=== PATIENT | male | born 1965 | race African-American/Black ===

== ENCOUNTER 2020-11-30 07:29 | Outpatient (CLI) | payer BC, SELFPAY ==
--- NOTE | 2020-11-30 | ECHO_ITS ---
Patient Info Name: Billy Butler Age: 55 years : 1965 Gender: Male Ht: 72 in Wt: 309 lbs BSA: 2.73 m2 HR: 88 bpm BP: 149 / 97 mmHg Heart Rhythm: Sinus Rhythm Exam Date: 11/30/2020 8:11 AM Exam Location[facility] Patient Status: Outpatient Admit Date: 11/30/2020 Staff Ordering Physician: ValentínGuillermo MD Unemployment Inspector: Iram Tomlin RDCS Attending Provider: Jose GuadaulpeGuillermo MD Exam Type: CA echo doppler color flow Study Info Indications R06.02 - Shortness of breath Complete two-dimensional, color flow and Doppler transthoracic echocardiogram is performed. Summary 1. Complete two-dimensional, color flow and Doppler transthoracic echocardiogram is performed. 2. Technically difficult study with limited views. Regional wall motion assessment limited due to poor endomyocardial border definition. 3. Left ventricular chamber dimension is mildly enlarged. 4. Left ventricular systolic function is normal, estimated at 55%. 5. The left ventricular diastolic function is grade I diastolic dysfunction. 6. There is trace aortic valve regurgitation. 7. There is trace mitral valve regurgitation. 8. There is trace tricuspid valve regurgitation. 9. No pulmonary hypertension, estimated pulmonary arterial systolic pressure is 24 mmHg. Left Ventricle Left ventricular chamber dimension is mildly enlarged. Left ventricular systolic function is normal, estimated at 55%. There is no increased left ventricular wall thickness. The left ventricular diastolic function is grade I diastolic dysfunction. Technically difficult study with limited views. Regional wall motion assessment limited due to poor endomyocardial border definition. Right Ventricle Right ventricular chamber dimension is normal. Right ventricular systolic function is normal. Left Atria Left atrial chamber dimension is normal. Right Atria Right atrial chamber dimension is normal. Aortic Valve The aortic valve is not well visualized. There is no aortic valve stenosis. There is trace aortic valve regurgitation. Pulmonic Valve The pulmonic valve is not well visualized. There is trace pulmonic regurgitation. Mitral Valve The mitral valve has normal leaflets. There is trace mitral valve regurgitation. The mitral valve annulus is mildly calcified. Tricuspid Valve The tricuspid valve leaflets are normal. There is trace tricuspid valve regurgitation. No pulmonary hypertension, estimated pulmonary arterial systolic pressure is 24 mmHg. Pericardium/Pleural The pericardium appears not well visualized. There is no pericardial effusion. Aorta The aortic root size at the sinus of Valsalva is mildly dilated. There is mild aortic atherosclerosis. Left Ventricular Outflow Tract Name Value Normal LVOT 2D LVOT Diameter 2.3 cm LVOT Doppler LVOT Peak Gradient 4 mmHg LVOT Mean Gradient 1 mmHg LVOT VTI 17 cm LVOT VTI/AV VTI Ratio 0.7 LVOT Stroke Volume 69 ml LVOT CO
--- NOTE | 2020-11-30 17:41 | WPDPFTINT ---
PFT Interpretation This is a pulmonary function test with spirometry, plethysmography and diffusing capacity. The test was performed and results interpreted in accordance with the 2019 and 2005 ATS/ERS Task Force guidelines respectively using the Global Lung Function Initiative-2012 reference equations. Patient demonstrated good effort and cooperation. Reproducibility criteria were met. The quality of the pre bronchodilator spirometry maneuver was Grade A. Findings: Spirometry: Contour the inspiratory and expiratory flow tracing are normal. The FVC is 3.65 L, 71% predicted. The FEV1 is 2.80 L, 70% predicted. The FEV1: FVC ratio 77%. Plethysmography: The total lung capacity is 5.78 L, 78% predicted. The functional residual capacity is 2.15 L, 56% predicted. The residual volume is 2.10 L, 93% predicted. Diffusing capacity: The absolute diffusion capacity is 18.4, 60% predicted. The diffusing capacity corrected for alveolar volume is 3.83, 89% predicted. Impression: There is a mild restrictive ventilatory abnormality. The spirometry is normal without evidence of an obstructive abnormality. The absolute diffusing capacity is moderately decreased and normalizes when corrected for alveolar volume. There are no prior studies for comparison PFT Procedure Performed PFT Procedure Performed Plethysmography (Lung Vol) Diffusing Cap (DLCO) Spirometry w/o Bronchodil
== END 2020-11-30 07:30 | disposition home or self-care (01) ==
PROVIDERS: PCP Internal Medicine; Visit Provider Internal Medicine
DX: R06.02 Shortness of breath (principal); R94.2 Abnormal results of pulmonary function studies
CPT/HCPCS: 93306; 94375; 94726; 94729

== ENCOUNTER → 2023-03-06 10:13 | Outpatient (CLI) | payer BC, SELFPAY ==
--- NOTE | ~2023-03-06 | CT_ITS ---
EXAMINATION: CT lung screening DATE: 03/06/2023 10:26 INDICATION: personal hx of nicotine dependence TECHNIQUE: Computed tomography (CT) of the chest was performed without intravenous contrast. Addition al 3D reconstructions utilizing coronal maximum intensity projection (MIP) were performed. Automated exposure control and iterative reconstruction technique were employed. The dose-length product was 38 4.19 mGy-cm. COMPARISON: None FINDINGS: Mild bronchiectasis and some peripheral reticular atelectasis/scarring in the posterior medial right lower lobe. No pneumonia, suspicious pulmonary nodules, pulmonary edema or pleural effusion. Heart si ze is normal. Atherosclerotic coronary artery calcification. Thoracic aorta is normal in caliber. No pathologically enlarged thoracic lymphadenopathy. 1.8 cm low-attenuation cyst versus hemangioma at th e dome of the liver. Mild thoracic spondylosis. IMPRESSION: 1. . Lung-RADS category 1: Negative. Continue annual screening with noncontrast low-dose chest CT in 12 months. Reviewed, dictated and finalized at location A.
== END ==
PROVIDERS: PCP Internal Medicine; Visit Provider Internal Medicine
DX: Z12.2 Encounter for screening for malignant neoplasm of respiratory organs (principal); Z87.891 Personal history of nicotine dependence
CPT/HCPCS: 71271

== ENCOUNTER 2023-12-12 10:47 | Outpatient (CLI) | payer BC, SELFPAY ==
--- NOTE | ~2023-12-12 | MR_ITS ---
MRI of the brain Clinical History: Headache Technique: Axial and sagittal T1-weighted images were acquired. These were followed by axial T2-weigh irvin, diffusion weighted, gradient, and FLAIR images. Following intravenous administration of 20 cc Mu ltiHance gadolinium, T1-weighted fat-sat imaging was performed in the axial and coronal planes. Findings: No acute infarct, intracranial hemorrhage or mass lesion. There is encephalomalacia in the right frontal lobe with surrounding gliosis. No other significant signal abnormality seen in the dwayne jeff of the brain. Ventricles and subarachnoid spaces otherwise are unremarkable. Orbits are unremarkable. There is fron alberto sinus disease bilaterally. Remaining paranasal sinuses and mastoid air cells are clear. Major int racranial flow voids are intact. Sagittal midline structures are intact. No abnormal postcontrast enhancement identified. IMPRESSION: No acute infarct, intracranial hemorrhage, or mass lesion. Right frontal lobe encephalomalacia with surrounding gliosis. Correlate for postoperative change or p rior infarct. Reviewed, dictated and finalized at location . IMPRESSION: No acute infarct, intracranial hemorrhage, or mass lesion. Right frontal lobe encephalomalacia with surrounding gliosis. Correlate for pos toperative change or prior infarct.
[2023-12-12 13:45] LABS: Basophils Absolute Auto 0.1 K/mm3 (0.0-0.1); Basophils Percent Auto 0.6 % (0.2-1.2); Eosinophils Absolute Auto 0.4 K/mm3 (0-0.3); Eosinophils Percent Auto 4.1 % (0-4.4); Hematocrit 45.4 % (42.0-52.0); Hemoglobin 13.7 g/dL (14.0-18.0); Immature Granulocyte Absolute 0.03 K/mm3 (0.00-0.031); Immature Granulocyte Percent A 0.3 % (0-0.5); Lymphocytes Percent Auto 43.3 % (18.3-44.2); Mean Corpuscular HGB Conc 30.2 g/dl (32-36); Mean Corpuscular Hemoglobin 27.6 pg (26-34); Mean Corpuscular Volume 91.5 fl (80-100); Mean Platelet Volume 9.4 fl (7.4-10.4); Monocytes Absolute Auto 0.8 K/mm3 (0.1-0.6); Monocytes Percent Auto 8.2 % (2.6-8.5); Neutrophils Absolute Auto 4.3 K/mm3 (1.3-6.7); Neutrophils Percent Auto 43.5 % (45.5-73.1); Platelet Count Result 329 k/mm3 (150-375); Red Blood Count 4.96 M/mm3 (4.6-6.20); Red Cell Distribution Width 12.6 % (11.5-14.5); White Blood Count 9.9 K/mm3 (4.5-10.0)
[2023-12-12 13:54] LABS: Alanine Aminotransferase 49 U/L (6-50); Albumin Level 4.8 g/dL (3.5-5.1); Alkaline Phosphatase 88 U/L (38-126); Anion Gap 11 mmol/L (4-12); Aspartate Amino Transferase 40 U/L (17-59); Bilirubin,Total 0.7 mg/dL (0.2-1.3); Blood Urea Nitrogen 14 mg/dL (9-20); Calcium 9.5 mg/dL (8.4-10.2); Carbon Dioxide 25 mmol/L (22-30); Chloride 107 mmol/L (98-107); Cholesterol 120 mg/dL (0-200); Estimated Glomerular Filt Rate > 60; Glucose 85 mg/dL (65-110); HDL Direct 27 mg/dL; Sodium 143 mmol/L (137-145); Triglycerides 115 mg/dL (<150)
[2023-12-12 14:04] LABS: LDL Cholesterol Direct 78 mg/dL
== END 2023-12-12 10:48 | disposition home or self-care (01) ==
PROVIDERS: PCP Internal Medicine; Visit Provider Internal Medicine
DX: R51.9 Headache, unspecified (principal); E78.5 Hyperlipidemia, unspecified; E11.9 Type 2 diabetes mellitus without complications; G93.89 Other specified disorders of brain
CPT/HCPCS: 36415; 70553; 80053; 80061; 83036; 85025; A9577

== ENCOUNTER 2024-05-05 15:14 | Outpatient (CLI) | payer BC, SELFPAY ==
[2024-05-05 15:41] LABS: Basophils Absolute Auto 0.1 K/mm3 (0.0-0.1); Basophils Percent Auto 0.6 % (0.2-1.2); Eosinophils Absolute Auto 0.5 K/mm3 (0-0.3); Eosinophils Percent Auto 5.6 % (0-4.4); Hematocrit 44.1 % (42.0-52.0); Hemoglobin 13.7 g/dL (14.0-18.0); Immature Granulocyte Absolute 0.02 K/mm3 (0.00-0.031); Immature Granulocyte Percent A 0.2 % (0-0.5); Lymphocytes Absolute Auto 3.12 K/mm3 (0.9-3.2); Lymphocytes Percent Auto 34.8 % (18.3-44.2); Mean Corpuscular HGB Conc 31.1 g/dl (32-36); Mean Corpuscular Volume 90.2 fl (80-100); Mean Platelet Volume 8.9 fl (7.4-10.4); Monocytes Percent Auto 10.6 % (2.6-8.5); Neutrophils Absolute Auto 4.3 K/mm3 (1.3-6.7); Neutrophils Percent Auto 48.2 % (45.5-73.1); Platelet Count Result 337 k/mm3 (150-375); Red Blood Count 4.89 M/mm3 (4.6-6.20); Red Cell Distribution Width 13.1 % (11.5-14.5)
[2024-05-05 16:01] LABS: Alanine Aminotransferase 45 U/L (6-50); Albumin Level 4.4 g/dL (3.5-5.1); Alkaline Phosphatase 94 U/L (38-126); Anion Gap 10 mmol/L (4-12); Aspartate Amino Transferase 36 U/L (17-59); Bilirubin,Total 0.7 mg/dL (0.2-1.3); Blood Urea Nitrogen 13 mg/dL (9-20); Calcium 9.2 mg/dL (8.4-10.2); Carbon Dioxide 24 mmol/L (22-30); Chloride 105 mmol/L (98-107); Cholesterol 110 mg/dL (0-200); Estimated Glomerular Filt Rate > 60; Glucose 80 mg/dL (65-110); HDL Direct 28 mg/dL; Potassium 4.2 mmol/L (3.4-5.0); Sodium 139 mmol/L (137-145); Triglycerides 86 mg/dL (<150)
[2024-05-05 16:10] LABS: Hemoglobin A1C 5.4 % (<5.7)
[2024-05-05 16:11] LABS: Creatinine Urine 161.4 mg/dL
[2024-05-05 16:12] LABS: LDL Cholesterol Direct 63 mg/dL
[2024-05-05 16:20] LABS: MALB Creatinine Ratio < 3.7 mg/g (0-30); Microalbumin Urine Random < 6.0 mg/L (0-16.7)
[2024-05-05 16:32] LABS: Prostate Specific Antigen 0.6 ng/mL (< OR = 4.0)
== END 2024-05-05 15:15 | disposition home or self-care (01) ==
LOC: ANHLAB 15:19
PROVIDERS: PCP Internal Medicine; Visit Provider Internal Medicine
DX: I10 Essential (primary) hypertension (principal); E11.9 Type 2 diabetes mellitus without complications; Z12.5 Encounter for screening for malignant neoplasm of prostate
CPT/HCPCS: 36415; 80053; 80061; 82043; 83036; 84153; 85025

== ENCOUNTER 2024-10-01 10:40 | Outpatient (CLI) | payer BC, SELFPAY ==
--- OUTSIDE RECORDS SUMMARY | 2024-10-01 10:58 | XMS_ITS | Clinical Summary ---
Author Organization [facility] Address [address] [place] [address] Care Team Providers Care Taxicab Starter Name Role Phone Unavailable Primary Care Provider Unavailabl e Social History Tobacco Use Types Packs/Day Years Used Date Smoking Tobacco: Never Assessed Sex and Gender Information Value Date Recorded Sex Assigned at Not on file Legal Sex Male 12:14 PM CDT Gender Identity Not on file Sexual Orientation Not on file Plan of Treatment Health Maintenance Due Date Last Done Comments Hepatitis C Virus (HCV) Screening 1965 TdaP Immunization 1965 Hepatitis B Immunization (1 of 3 - 19+ 3-dose series) 1984 Colonoscopy 2010 Colorectal Cancer Screening 2010 Cologuard 2015 Immunochemical Fecal Occult Blood 2015 Pneumococcal Immunization (5 0+ years) (1 of 1 - PCV) 2015 Zoster Immunization (1 of 2) 2015 PSA Discussion 2020 Influenza Immunization (#1) 2024 SARS-COV-2 Immunization ( - season) 2024 Respiratory Syncytial Virus (RSV) Immunization (Adult) (1 - 1-dose 75+ series) 2040 Meningococcal Immunization (ACWY) Aged Out No longer eligible based on patient's age to complete this topic Pneumococcal Immunization Combined Aged Out No longer eligible based on patient's age to complete this topic Rotavirus Immunization Aged Out No lo nger eligible based on patient's age to complete this topic
--- OUTSIDE RECORDS SUMMARY | 2024-10-01 10:59 | XMS_ITS | Referral Summary ---
Author Organization [facility] [address] Address [address] [place] [address] Care Team Providers Care Jewelry Drill Operator Name Role Phone Guillermo Laura MD Primary Care Provider [phone] Allergies Active Allergy Reactions Criticality Noted Date Comments Atenolol-Chlorthalidone Cough Low 03/08/2016 Medications TOUJEO 300 unit/mL (1.5 mL) pen for injection 1 Active metFORMIN (GLUCOPHAGE) 1,000 mg tablet 2 (two) times a day 1 Active Januvia 100 mg tablet 1 Active UltiCare Pen Needle 31 gauge x /16 needle 1 Active OneTouch Delica Plus Lancet 33 gauge misc 1 Active OneTouch Ultra Blue Test Strip strip 1 Active insulin lispro (HumaLOG, ADMELOG) 100 unit/mL pen for injection Humalog KwikPen (U-100) Insulin 100 unit/mL subcutaneous Active atorvastatin (LIPITOR) 20 mg tabletIndicatio ns:Hyperlipidem ia associated with type 2 diabetes mellitus (HCC) TAKE 1 TABLET DAILY 90 tablet 3 4 Active aspirin 81 mg enteric coated tablet Take 1 tablet (81 mg total) by mouth daily 6 Active cholecalciferol 25 mcg (1,000 unit) tablet Take 1 tablet (1,000 Units total) by mouth daily 6 Active RIBOFLAVIN, VITAMIN B2, ORAL Take 400 mg by mouth daily 4 Active nortriptyline (PAMELOR) 10 mg capsule Take 1 capsule (10 mg total) by mouth 3 (three) times a day Active Ozempic 1 mg/dose (4 mg/3 mL) pen injector injection Inject 1 mg under the skin once a week 4 Active Nurtec ODT tablet,disinteg rating Place under the tongue daily as needed Active topiramate (TOPAMAX) 25 mg tablet Take 1 tablet (25 mg total) by mouth as directed 4 Active propranoloL (INDERAL) 20 mg tablet Take 1 tablet (20 mg total) by mouth 2 (two) times a day 4 Active Active Problems Problem Noted Date Diagnosed Date History of stroke 06/19/2024 Morbid obesity 07/05/2021 History of COVID-19 12/02/2020 Obstructive sleep apnea syndrome 12/02/2020 Morbid obesity with BMI of 40.0-44.9, adult 04/2021 Hyperlipidemia associated with type 2 diabetes m ellitus 12/02/2020 Palpitations 12/02/2020 Lightheadedness 12/02/2020 Lipid screening 12/02/2020 Short of breath on exertion 12/02/2020 Social History Tobacco Use Types Packs/Day Years Used Date Smoking Tobacco: Former Cigarettes 0.5 23.9 0 04/03/1991 - 03/03/2015 Smokeless Tobacco: Never Tobacco Cessation:Counseling Given: Not Answered Sex and Gender Information Value Date Recorded Sex Assigned at Not on file 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 Gender Identity Not on file Sexual Orientation Not on file Last Filed Vital Signs Vital Sign Reading Time Taken Comments Blood Pressure 110/76 06/19/2024 10:44 AM CDT Pulse 97 06/19/2024 10:44 AM CDT Temperature 36.3 C (97.3 F) 12/02/2020 1:25 PM CDT Respiratory Rate 18 12/02/2020 1:25 PM CDT Oxygen Saturation 99% 06/19/2024 10:44 AM CDT Inhaled Oxygen Concentration - - Weight 142 kg (313 lb) 06/19/2024 10:44 AM CDT Height 182.9 cm (6') 06/19/2024 10:44 AM CDT Body Mass Index 42.45 06/19/2024 10:44 AM CDT Plan of Treatment Not on file Procedures Procedure Name Priority Date/Time Associated Diagnosis Comments LIPID PANEL Routine 05/05/2024 3:30 PM CDT from Last 3 Months or Most Recently Relevant to Health Maintenance Results * (ABNORMAL) Lipid panel (05/05/2024 3:30 PM CDT) SCRIBED Cholesterol, Total 110 0 - 200 EXTERNAL LAB SCRIBED HDL 28(A) 40 - 100 EXTERNAL LAB SCRIBED LDL 63 0 - 100 EXTERNAL LAB SCRIBED Triglycerides 86 0 - 150 EXTERNAL LAB Blood 05/05/2024 3:30 PM CDT us Historical Provider LAB BLOOD ORDERABLES Kavitha vega Result EXTERNAL LAB from Last 3 Months or Most Recently Relevant to Health Maintenance Insurance [employer]now [employer] OOS [employer] CHOICE OOS [facility] CHOICE OOS Care Teams Jewelry Drill Operator Relationship Specialty Start Date End Date Guillermo Laura MD PCP - General Internal Medicine 11/03/20
--- OUTSIDE RECORDS SUMMARY | 2024-10-01 10:59 | XMS_ITS | Continuity of Care Document ---
Author Organization [facility] Address [address] [place] [address] Phone Care Team Providers Care Overhead Crane Inspector Name Role Phone No Information Unavailable Unavailable Allergies, Adverse Reactions, Alerts Substance Reaction Status Criticality No Known Allergies Active No Inform ation Procedures Procedure Date Prevent E&m Estab Pt; 40-64 Yr 13 Prevent E&m Estab Pt; 40-64 Yr 12 Lipid Panel General Health Panel Venipuncture Offic/outpt E&m Estab Low-mod 1 Offic/outpt E&m Estab Mod-hi 2 10 Offic/outpt E&m Estab Low-mod 9 Lipid Panel General Health Panel Venipuncture Offic/outpt E&m Estab Low-mod 9 Prevent E&m Estab Pt; 40-64 Yr 09 Offic/outpt E&m New Low-mod 07 Advance Directives Directive Yes / No Effective Date File Name No Information Encounters Encounter Description Practice Location Reason(s) For Visit Diagnoses Date Provider Providers Copied on Encounter [facility], [address], [place], [place], [id number], [place] tel:[phone] No Information 0 No Information Prevent E&m Estab Pt; 40-64 Yr [facility], [address], [place], [place], [id number], [place] tel:[phone] [place] [facility] EXAM, GENERAL, ROUTINE 3 K[facility] Simpson. [address], [place], [place], [id number], [place]. tel:[phone] Referring Provider: Calvin Villaseñor, [address], [place], [address] . tel:[phone] Prevent E&m Estab Pt; 40-64 Yr [facility], [address], [place], [place], [id number], [place] tel:[phone] [place] [facility] EXAM, GENERAL, ROUTINE 2 [facility]asi Simpson. [address] [place], [id number], [place]. tel:[phone] Referring Provider: Calvin Villaseñor, [address], [place], [address] . tel:[phone] Offic/outpt E&m Estab Low-mod [facility], [address], [place], [place], [id number], [place] tel:[phone] [place] [facility] PAIN, KNEEBURSITIS, HIP 1 Kasi Simpson. [address], [place], [place], [id number], [place]. tel:[phone] Referring Provider: [place], [address] . tel:[phone] Offic/outpt E&m Estab Mod-hi 2 [facility], [address], [place], [place], [id number], [place] tel:[phone] [place] [facility] HEADACHESPRAIN, KNEE, MEDIAL COLLATERAL Oct- 0 Kasi Simpson. [address], [place], [place], [id number], [place]. tel:[phone] Referring Provider: Calvin Villaseñor, [address], [place], [address] . tel:[phone] Offic/outpt E&m [facility], [address], [place], [place], [id number], [place] tel:[phone] [place] [facility] PAIN, THORACICPAIN, WRISTPAIN, HANDCAULIFLOWER EAR Dec-1 0-200 9 Kasi Simpson. [address], [place], [place], [id number], [place]. tel:[phone] Referring Provider: Calvin Villaseñor, [address], [place], [address] . tel:[phone] [facility], [address], [place], [place], [id number], [place] tel:[phone] [place] [facility] EXAM, GENERAL, ROUTINE Nov-1 0-200 9 Kasi Simpson. [address], [place], [place], [id number], [place]. tel:[phone] Referring Provider: Calvin Villaseñor, [address], [place], [address] . tel:[phone] Offic/outpt E&m [facility], [address], [place], [place], [id number], [place] tel:[phone] [place] [facility] HEADACHE May- 9-200 9 Kasi Simpson. [address], [place], [place], [id number], [place]. tel:[phone] Referring Provider: Calvin Villaseñor, [address], [place], [address] . tel:[phone] Prevent E&m Estab Pt; 40-64 Yr [facility], [address], [place], [place], [id number], [place] tel:[phone] [place] [facility] EXAM, GENERAL, ROUTINE Mar-0 2-200 9 Kasi Simpson. [address], [place], [place], [id number], [place]. tel:[phone] Referring Provider: Calvin Villaseñor [address], [place], [address] . tel:[phone] Offic/outpt E&m [facility] [address], [address], [place], [place], [id number], [place] tel:[phone] [place] [facility] SINUSITIS, PANSINUSITIS, ACUTEOTITIS MEDIA 200 7 Kasi Simpson. [address], [place], [id number], [place]. tel:[phone] Referring Provider: Calvin Villaseñor, [address] [place], [address] . tel:[phone] Family History Family Member Type Diagnosis Age At Onset Father Problem (finding) Hypertension Payers Payer name Insurance type Covered constitution party ID Authoriza tion(s) No Information Social History Type Description Quantity Date Captured Comments Alcohol Use Details Unknown Caffeine Use Details 2 cups per day Tobacco Use Status No Information Smoking Status No Information Non-Smoking Tobacco Use Details cigarettes: No Details Available cigarettes: 1.00 per day Sex Male Chief Complaint And Reason For Visit No Information Reason For Referral Reason For Referral No Information History Of Present Illness Encounter Date Complaint History Of Prese nt Illness No Information Functional Status Date Functional Assessmen t No Information Instructions Date Instruction Additional Joelr ifeoma Converted from Health Monitor Assessments Type Assessment Date No Information Patient Care Teams Name Effective Dates (start - stop) Status Members No Information
--- OUTSIDE RECORDS SUMMARY | 2024-10-01 10:59 | XMS_ITS | CONTINUITY OF CARE DOCUMENT ---
Author Name raymundo fonseca Address Unknown Organization [facility] Address [address] [address] [place] [address] Phone [phone] Care Team Providers Care Drafter Apprentice Name Role Phone Scott Carter MD Unavailable [phone] ISH ASIF Unavailable [phone] ISH ASIF Unavailable [phone] PROBLEMS Condition Status Date Provider Notes Tobacco use, quit active Scott Carter MD Chest pain, atypical active Scott Holland Obesity active Scott Carter MD FAMILY HISTORY OF HEART DISEASE active Regla Carter MD Sleep apnea active Scott Carter MD HTN essential completed - Scott Carter MD Hyperlipidemia active Scott Carter MD Vitamin D deficiency active Scott Holland Health maintenance examination active Grazyna Carter MD ENCOUNTERS Date Type Provider Location Encounter Diag nosis - In-person encounter Office Visit Scott Carter MD [place] [facility] Chest pain, atypicalSleep apneaHTN essentialHealth maintenance examination - In-person encounter Office Visit Scott Carter MD [place] [facility] Tobacco use, quitChest pain, atypicalObesityFAMILY HISTORY OF HEART DISEASESleep apneaHyperlipidemiaVitamin D deficiency VITAL SIGNS Date Observation Value Provider blood pressure, diastolic 83 mm[Hg] Me ange Gandara blood pressure, systolic 132 mm[Hg] Melissa Ganadra pulse rate 88 /min Anupama Gandara oxygen saturation, oximetry 98 % Anupama Gandara respiratory rate E&M 15 /min Anupama Norman Body Mass Index (Ratio) 40.68 kg/m2 Ibis lance weight E&M 300 [lb_av] Anupama Gandara blood pressure, diastolic 90 mm[Hg] Me cassidy Gandara blood pressure, systolic 119 mm[Hg] Melissa ramirez Gandara blood pressure, diastolic 112 mm[Hg] Tate Mooney blood pressure, systolic 168 mm[Hg] Brittany Mooney pulse rate 104 /min Benedicto gilliam oxygen saturation, oximetry 98 % Benedicto Mooney respiratory rate E&M 18 /min Adrien Mooney Body Mass Index (Ratio) 40.82 kg/m2 Laura Mooney weight E&M 301 [lb_av] Benedicto Healy yamilmichell height E&M 72 [in_i] Benedicto Healy yamilmichell ALLERGIES Allergy Name Onset Date Reaction Criticality Status TENORETIC 50 COUGH COUGH Low Criticality active RESULTS Date Observation Value Provider Reference Range Interpretation Location folate, serum 20.0 NG/MLM [facility] 4.4 - 31.0 vitamin b12, serum 2000.0 pg/mL [facility] 211.0 - 946.0 High thyroid stimulating hormone, serum 1.840 ??IU/ML [facility] 0.270 - 4.200 pro brain natriuretic peptide 14.2 pg/mL [facility] 0.0 - 125.0 very low density lipoproteins 18.0 mg/dL [facility] 5.0 - 40.0 LDL/HDL (low-density lipoprotein/high-den sity lipoprotein) ratio 3.5 RATIO [facility] - lipoprotein, beta, serum, point, quantitative, calculated 117.0 (?) [facility] 0.0 - 100.0 High HDL cholesterol, serum 33.0 mg/dL [facility] 35.0 - 55.0 Low cholesterol, serum 168.0 mg/dL [facility] 0.0 - 200.0 triglyceride, serum, fasting 90.0 mg/dL [facility] 0.0 - 150.0 anion gap, serum 11.9 [facility] - albumin/globulin ratio, serum 2.4 g/dL [facility] 1.1 - 2.5 globulin, serum 3.2 [facility] 2.3 - 3.8 urea nitrogen/creatinine ratio, serum 15.7 [facility] - Estimated Glomerular Filtration Rate (calc) 126.9 (?) [facility] 59.0 - chloride, serum 102.1 mmol/L [facility] 98.0 - 107.0 potassium, serum 4.4 mmol/L [facility] 3.5 - 5.1 sodium, serum 140.0 mmol/L [facility] 136.0 - 145.0 creatinine, serum 0.7 mg/dL [facility] 0.7 - 1.2 carbon dioxide, venous blood 26.0 mmol/L [facility] 22.0 - 29.0 albumin, serum 4.2 g/dL [facility] 3.5 - 5.2 calcium, serum 9.7 mg/dL [facility] 8.6 - 10.2 aspartate aminotransferase (SGOT), serum 36.0 1/L [facility] 0.0 - 40.0 alkaline phosphatase, serum 78.0 1/L [facility] 40.0 - 130.0 alanine aminotransferase (SGPT), serum 54.0 1/L [facility] 0.0 - 41.0 High protein, total, serum 7.4 g/dL [facility] 6.6 - 8.7 bilirubin, serum, total 0.6 mg/dL [facility] 0.0 - 1.2 urea nitrogen, blood 11.0 mg/dL [facility] 6.0 - 20.0 blood glucose, random 71.0 mg/dL [facility] 74.0 - 99.0 Low red blood cell distribution width, size density 40.9 fL [facility] - immature granulocytes, percentage of total cells, blood 0.2 % [facility] - nucleated red blood cells as percent of blood leukocytes 0.0 % [facility] - red blood cell (erythrocyte) count, per high power field 0.0 10*3/UL [facility] - eosinophils as percent of blood leukocytes 4.7 % [facility] - neutrophils as percent of blood leukocytes 50.9 % [facility] - Absolute Neutrophils 4.7 CELLS/UL [facility] 1.5 - 7.8 basophils as percent of blood leukocytes 0.4 % [facility] - Absolute Basophils 0.0 CELLS/UL [facility] 0.0 - 0.2 monocytes as percent of blood leukocytes 9.8 % [facility] - Absolute Monocytes 0.9 CELLS/UL [facility] 0.2 - 1.0 lymphocytes as percent of blood leukocytes 34.0 % [facility] - Absolute Lymphocytes 3.2 CELLS/UL [facility] 0.9 - 3.9 mean platelet volume 10.2 (?) [facility] - platelet count 343.0 THOUSAND/UL [facility] 100.0 - 400.0 mean corpuscular hemoglobin concentration, RBC 31.1 G/DL [facility] 31.0 - 38.0 mean corpuscular hemoglobin, RBC 27.8 pg [facility] 25.0 - 35.0 mean corpuscular volume, RBC 89.5 fL [facility] 75.0 - 100.0 hematocrit, blood 42.8 % [facility] 35.0 - 55.0 hemoglobin, blood 13.3 g/dL [facility] 11.5 - 16.5 erythrocyte count, whole blood 4.8 MILLION/UL [facility] 3.5 - 5.5 activated partial thromboplastin time 26.5 SECONDS [facility] 23.0 - 33.0 prothrombin time (patient) 10.0 s [facility] 9.0 - 11.5 international normalized ratio (INR) 0.9 [facility] 0.9 - 1.1 hemoglobin A1C, blood, as % of total hemoglobin 5.4 % [facility] 4.0 - 6.0 HISTORY OF MEDICATION USE Medication Status Instructions Dates Provider Indications Com ments QSYMIA 7.5-46 MG ORAL CAPSULE EXTENDED RELEASE 24 HOUR active one tablet daily Scott Carter MD QSYMIA 3.75-23 MG ORAL CAPSULE EXTENDED RELEASE 24 HOUR active one tablet daily Scott Carter MD TENORETIC 100 100-25 MG ORAL TABLET completed ONE TAB. DAILY - Anupama Gandara LOVASTATIN 40 MG ORAL TABLET active ONE TAB. DAILY Scott Carter MD EQL VITAMIN D3 TABLET active DAILY Scott Carter MD ASPIRIN 81 MG ORAL TABLET active ONE TAB. DAILY Scott Carter MD SOCIAL HISTORY Date Observation Value Provider social history reviewed E&M revi ewed - no changes required Scott Carter MD smoking status Former smoker Anupama carver smoking status Former smoker Anupama carver smoking status Former smoker Scott hernandez MD quit smoking, stage quit Scott rivera MD social history E&M S moking History: Boby waller is a former smoker. Scott Carter MD social history reviewed E&M revi ewed - no changes required Scott Carter MD FUNCTIONAL STATUS Date Observation Value Provider periodic limb movement index absent (0) Anupama Gandara FAMILY HISTORY Family Member Condition Father Family History of Co ronary Artery Disease: INSURANCE PROVIDERS Payer name Policy type / Coverage type [employer] party ID [facility] [id number] [employer] (2) Medicaid [id number] TREATMENT PLAN Date Name Performer Cardiology:OK ON RX Scott hernandez MD Cardiology:WILL DO DIET PILL Keon Carter MD Cardiology:NEG CXR A ND TROP B KYLE WITHOUT ENERGUY DRINK T he following medications were removed from the medication list: Tenoretic 100 100-25 Mg Tabs (Atenolol-chlorthalidone) ..... One tab. daily His updated medication list for this problem includes: Aspirin 81 Mg Tabs (Aspirin) ..... One tab. daily 1 . Technically difficult study. Normal left ventricular systolic function. Normal left ventricular size. N ormal left ventricular wall thickness. There is E to A wave reversal consistent with impaired LV r elaxation. Normal E/E` 8.0. Left ventricular ejection fraction is estimated at 60 %. 2 . Normal right ventricular size. Normal right ventricular systolic function. 3 . No significant valvular abnormalities. 4 . There is mild enlargement of the left atrium. E xercise Tolerance Test Assessment: Quality of ETT: diagnostic ETT Interpretation: normal-no evidence of ischemia by ST analysis Scott Carter MD Cardiology:SEVERE TO GET TITRATI ON Scott Carter MD Cardiology:NML A1C VIT D AND B12 Scott Carter MD Cardiology: H is updated medication list for this problem includes: Lovastatin 40 Mg Tabs (Lovastatin) ..... One tab. daily C HOL: 168.0 (02/08/2016) LDL: 117.0 (?) (02/08/2016) HDL: 33.0 (02/08/2016) T.0 (02/08/2016) Scott Carter MD Cardiology:NEG CXR A ND TROP T he following medications were removed from the medication list: Tenoretic 100 100-25 Mg Tabs (Atenolol-chlorthalidone) ..... One tab. daily His updated medication list for this problem includes: Aspirin 81 Mg Tabs (Aspirin) ..... One tab. daily 1 . Technically difficult study. Normal left ventricular systolic function. Normal left ventricular size. N ormal left ventricular wall thickness. There is E to A wave reversal consistent with impaired LV r elaxation. Normal E/E` 8.0. Left ventricular ejection fraction is estimated at 60 %. 2. Normal right ventricular size. Normal right ventricular systolic function. 3 . No significant valvular abnormalities. 4 . There is mild enlargement of the left atrium. E xercise Tolerance Test Assessment: Quality of ETT: diagnostic ETT Interpretation: normal-no evidence of ischemia by ST analysis Scott Carter MD Cardiology:may need dit pill Keon Carter MD Cardiology:nimo rx H is updated medication list for this problem includes: Lovastatin 40 Mg Tabs (Lovastatin) ..... One tab. daily Scott Carter MD Cardiology:will rx B P today: 168/112 His updated medication list for this problem includes: Tenoretic 100 100-25 Mg Tabs (Atenolol-chlorthalidone) ..... One tab. daily Aspirin 81 Mg Tabs (Aspirin) ..... One tab. daily Scott Carter MD Cardiology Scott Carter MD Cardiology Scott Carter MD Cardiology:will scotty Carter MD Cardiology:MANY ZUNILDA Carter MD Date Name HEMOGLOBIN A1c VITAMIN D, 25-HYDROX Y, LC/MS/MS VITAMIN B12/FOLATE, SERUM PANEL TSH, 3RD GENERATION W/REFLEX TO FT4 PARTIAL THROMBOPLAST IN TIME, ACTIVATED PROTHROMBIN TIME WIT H INR TROPONIN I LIPID PANEL CBC (INCLUDES DIFF/P LT) COMPREHENSIVE METABO LIC PANEL W/EGFR B TYPE NATRIURETIC P EPTIDE (BNP) PARTIAL THROMBOPLAST IN TIME, ACTIVATED PROTHROMBIN TIME WIT H INR TROPONIN I X-Ray, Chest, PA & L ateral PROBNP, N TERMINAL COMPREHENSIVE METABO LIC PANEL W/EGFR LIPID PANEL CBC (INCLUDES DIFF/P LT) THYROID PANEL WITH T SH, 3RD GENERATION VITAMIN B12 HEMOGLOBIN A1c VITAMIN D, 25-HYDROX Y, LC/MS/MS STR - Routine Complete Echo Sleep Study Home HISTORY OF PROCEDURES Procedure Date Procedure Name Provider Procedure Notes S tatus SNOMED-CT: 389016684666044 Current Medications Documented Scott Carter MD completed Stress EKG Cali garcia MD completed EKG Scott Carter MD complete d SNOMED-CT: 633026323569248 Current Medications Documented Scott Carter MD completed
--- OUTSIDE RECORDS SUMMARY | 2024-10-01 10:59 | XMS_ITS | Clinical Summary ---
Author Organization [facility] [address] Address [address] [place] [address] Care Team Providers Care Ginner Helper Name Role Phone Guillermo Laura MD Primary Care Provider [phone] Allergies Active Allergy Reactions Criticality Noted Date [...] 12/02/2020 Short of breath on exertion 12/02/2020 Surgical History Surgery Date Site/Laterality Comments FRACTURE SURGERY 10/13/2008 Medical History Medical History Date Comments Shortness of breath Diabetes mellitus (HCC) 06/19/2017 Migraines Family History Medical History Relation Name Comments Diabetes Brother Cancer Father Carlos Butler Heart attack Father Carlos Butler Prostate cancer Father Carlos Butler Cancer Mother Radha Butler Diabetes Mother Radha Butler Pancreatic cancer Mother Radha Butler Heart attack Sister Relation Name Status Comments Brother Father Carlos Butler Mother Radha Butler (Age 71) Sister Social History Tobacco Use Types Packs/Day Years Used Date Smoking Tobacco: Former Cigarettes 0.5 23.9 0 04/03/1991 - 03/03/2015 Smokeless Tobacco: Never Tobacco Cessation:Counseling Given: Not Answered Sex and Gender Information Value Date Recorded Sex Assigned at Not on file Legal Sex Male 1:31 PM EPIC TRAIN[employer] Gender Identity Not on file Sexual Orientation Not on file Obstetrics History Last Filed Vital Signs Vital Sign Reading [...] 06/19/2024 10:44 AM CDT Plan of Treatment Health Maintenance Due Date Last Done Comments Albumin Creatinine Ratio, Urine 1965 Colon Cancer Screening-Colonoscopy 1965 Depression Screening 1965 Hemoglobin A1C 1965 Hepatitis C Screening 1965 Prostate Cancer Screening-PSA 1965 eGFR 1965 Dilated Eye Exam 1965 Foot Exam 1965 Pneumococcal vaccine <65 (1 of 2 - PCV) 1971 DTaP/Tdap/Td Vaccine (1 - Tdap) 1976 Hepatitis B Screening 1983 Regular Well Visit/Exam 18-64 1983 Zoster Vaccine (1 of 2) 2015 Covid-19 Vaccine (4 - season) 2024 09/15/2021, 01/30/2021, 01/09/2021 Influenza Vaccine (#1) 2024 Lipid Panel 05/05/2025 05/05/2024, 12/02/2020 Procedures Procedure Name Priority Date/Time Associated Diagnosis [...] us Historical Provider LAB BLOOD ORDERABLES Kavitha l Result EXTERNAL LAB from Last 3 Months or Most Recently Relevant to Health Maintenance Insurance [employer] ACC CHOICE OOS [email or web address] CHOICE OOS BLUE ACC CHOICE OOS Care Teams Ginner Helper Relationship Specialty Start Date End Date Guillermo Laura MD PCP - General Internal Medicine 11/03/20
--- OUTSIDE RECORDS SUMMARY | 2024-10-01 10:59 | XMS_ITS | Data Portability ---
Author Organization [place] - [facility] [employer], Main Office Address [address] [place] [address] Care Team Providers Care Lute Packer Or Applier Name Role Phone ALEXIS LAURA Referring Provider Assessment Encounter Date Assessment Date Assessment LastModified by Organization Details LastModified Time 02/25/2023 02/25/2023 Screenings discussed immunizations discussed ordered where agreeable and inappropriate blood work reviewed follow-up 4 months Ozempic if approved [email or web address] Not available 03/09/2023 16:59:55 04/04/2023 04/04/2023 Continue current therapy and follow-up in 4 months [email or web address] Not available 06/23/2023 18:17:39 07/04/2023 07/04/2023 Continue current therapy follow-up in 4 months [email or web address] Not available 07/05/2023 14:15:31 Plan of Treatment Reminders Order Date Submit Date Provider Last Modified By Organization Details Last Modified Time Details Appointments None recorded . Lab CBC w/ auto diff 07/04/20 [facility] (Lab), [address] [place], [address], 18:44:52 CMP, serum or plasma 07/04/20 [facility] (Lab), [address] [place], [address], 19:03:50 lipid panel, serum 023 07/04/20 [facility] (Lab), [address] [place], [address], 3 19:03:54 HbA1c (hemoglo bin A1c), blood 023 07/04/20 23 [email or web address] [facility] ([facility]), [address] [place], [address], 4 18:48:31 Referral None recorded . Procedures None recorded . Surgeries None recorded . Imaging None recorded . Medication Orders None recorded . Patient TargetsNo targets recorded. Patient Instructions Encounter Date Encounter Id Patient Instructions Last Modified By Organization Details Last Modified Time 02/25/2023 [id number] advance care planning: care instructions [email or web address] Not available 03/09/2023 17:00:55 advance directives: care instructions [email or web address] Not available 03/09/2023 17:00:55 [place] Advance Directives Not available 03/09/2023 17:00:55 risk assessment* [email or web address] Not available 03/11/2023 09:57:29 INFLUENZA VACCIN E TD/TDAP Recommended today, patient declined Ordered P atient will get at local pharmacy/health department PNEUMONIA VACCINE Ordered Recommende d today, patient declined Patient will get at local pharmacy/health department Recomme nded at age 65 SHINGLES Ordered Recommende d today, patient declined Patient will get at local pharmacy/health department PSA Ordered No screening necessary patient is up to date COLORECTAL SCREENING No screening necessary patient is up to date DEPRESSION SCREENING Negative BMI Morbid Obesity continue your current weight loss efforts try to lose 5% of your body weight try to lose 10% of your body weight try to lose 15% of your body weight NUTRITION Heart Healthy Diet Recommendatio n of a 1500 caloric intake for weight loss is advised PHYSICAL ACTIVITY Need more exercise/physical activity minimum of 10-20 minutes of activity that causes mild breathlessness/day minimum of 20-30 minutes activity that causes mild breathlessness/day ALCOHOL USE No alcohol use TOBACCO USE former smoker If 50 or above, recommend lung cancer screening with low dose CT scan of the chest LUNG CANCER SCREENING Non Smoker-not indicated Recommen dation for Lung Cancer Screening with LDCT- ordered SEXUALLY ACTIVE Yes, Patient is in monogamous relationship HEPATITIS C SCREENING Not indicated GLUCOSE SCREENING Known Diabetic LIPID SCREENING Diagnosis of Hyperlipidemia [email or web address] Not available 02/25/2023 12:47:26 Reason for Referral None Reported. Results Created Date Observation Date Name Description Value Unit Range Abnormal Flag Note LastModifiedBy Organization Detail LastModifiedTime 08/03/20 22 08/03/2022 HEMOG LOBIN A1C HA1C 5.2 % 4.0-6. 0 Diabe soila Memo burns Crite cathleen: <5.7% Consi stent with absen ce of diabe soila 5.7-6 .4% Consi stent with incre ased risk for diabe soila (pred iabet es) >OR=6 .5% Consi stent with diabe soila REFER ENCE: Diabe soila Care 2016, 39(Bradley ppl.1 ):s13 -s22 Not Available [facility] (Lab) [address] [place], [address], 08/03/2022 21:26:57 08/03/20 22 08/03/2022 PSA SCREE N PSA medicare screen 0.76 NG/mL 0.00-4 .00 Not Available [facility] (Lab) [address] [place], [address], 08/03/2022 17:36:13 08/03/20 22 08/03/2022 COMPR EHENS МАРИНА METAB OLIC PANEL sodium 137 mmol/ L 137-14 5 Not Available [facility] (Lab) [address] [place], [address], 08/03/2022 17:03:28 08/03/20 22 08/03/2022 COMPR EHENS МАРИНА METAB OLIC PANEL potassium 4.6 mmol/ L 3.5-5. 1 Not Available [facility] (Lab) [address] [place], [address], 08/03/2022 17:03:28 08/03/20 22 08/03/2022 COMPR EHENS МАРИНА METAB OLIC PANEL chloride 101 mmol/ L 98-107 Not Available [facility] (Lab) [address] [place], [address], 08/03/2022 17:03:28 08/03/20 22 08/03/2022 COMPR EHENS МАРИНА METAB OLIC PANEL carbon dioxide 28 mmol/ L 22-30 Not Available [facility] (Lab) [address] [place], [address], 08/03/2022 17:03:28 08/03/20 22 08/03/2022 COMPR EHENS МАРИНА METAB OLIC PANEL anion gap 12.6 mmol/ L 14-22 low Not Available [facility] (Lab) [address] [place] [address], [address], 08/03/2022 17:03:28 08/03/20 22 08/03/2022 COMPR EHENS МАРИНА METAB OLIC PANEL glucose 82 mg/dL 70-99 Not Available [facility] (Lab) [address] [place] [address], [address], 08/03/2022 17:03:28 08/03/20 22 08/03/2022 COMPR EHENS МАРИНА METAB OLIC PANEL BUN 14 mg/dL 8-19 Not Available [facility] (Lab) [address] [place] [address], [address], 08/03/2022 17:03:28 08/03/20 22 08/03/2022 COMPR EHENS МАРИНА METAB OLIC PANEL creatinine 0.76 mg/dL 0.66-1 .25 Not Available [facility] (Lab) [address] [place] [address], [address], 08/03/2022 17:03:28 08/03/20 22 08/03/2022 COMPR EHENS МАРИНА METAB OLIC PANEL GFR >60 Refer ence Range : [place] ge GFR Healt hy Adult : >60 mL/mi n/1.7 3 m2 Chron ic Kidne y Disea se: 15-60 mL/mi n/1.7 3 m2 Kidne y Failu re: <15/m L/min /1.73 m2 www.n iddk. nih.g ov The MDRD study equat ion has not been valid ated in child perez <18 years of age; pregn ant women ; the elder ly >85 years of age; or in some racia l or ethni c subgr oups, such as Hispa nics. Outsi de the valid ated albino eters , estim ated GFR is less accur ate, requi ring clini christie judgm ent on a case- by-ca se basis . Clini christie inter preta tion for other races and ages must be made by the clini chester. The MDRD study equat ion has not been valid ated for the evalu ation of serum creat inine relat ed to nutri mak l statu s or medic ation usage . For perso ns <18 years of age, a pedia tric GFR calcu lator is avail able on the [facility] websi te: https ://stu duncan.o ofe/pr ofess ional s/kdo qi/gf r_cal culat or Not Available [facility] (Lab) [address] [place], [address], 08/03/2022 17:03:28 08/03/20 22 08/03/2022 COMPR EHENS МАРИНА METAB OLIC PANEL alkaline phosphatase 83 U/L 38-126 Not Available [facility] (Lab) [address] [place], [address], 08/03/2022 17:03:28 08/03/20 22 08/03/2022 COMPR EHENS МАРИНА METAB OLIC PANEL alanine aminotransfe rase 52 U/L 0-50 high Not Available [facility] (Lab) [address] [place], [address], 08/03/2022 17:03:28 08/03/20 22 08/03/2022 COMPR EHENS МАРИНА METAB OLIC PANEL aspartate aminotransfe rase 42 U/L 15-46 Not Available [facility] (Lab) [address] [place], [address], 08/03/2022 17:03:28 08/03/20 22 08/03/2022 COMPR EHENS МАРИНА METAB OLIC PANEL bilirubin, total 0.80 mg/dL 0.20-1 .30 Not Available [facility] (Lab) [address] [place], [address], 08/03/2022 17:03:28 08/03/20 22 08/03/2022 COMPR EHENS МАРИНА METAB OLIC PANEL calcium 9.6 mg/dL 8.4-10 .2 Not Available [facility] (Lab) [address] [place], [address], 08/03/2022 17:03:28 08/03/20 22 08/03/2022 COMPR EHENS МАРИНА METAB OLIC PANEL total protein 7.7 g/dL 6.3-8. 2 Not Available [facility] (Lab) [address] [place], [address], 08/03/2022 17:03:28 08/03/20 22 08/03/2022 COMPR EHENS МАРИНА METAB OLIC PANEL albumin 4.3 g/dL 3.4-5. 0 Not Available [facility] (Lab) [address] [facility] [place], [address], 08/03/2022 17:03:28 08/03/20 22 08/03/2022 COMPR EHENS МАРИНА METAB OLIC PANEL globulin 3.4 g/dL 2.6-4. 2 Not Available [facility] (Lab) [address] [place], [address], 08/03/2022 17:03:28 08/03/20 22 08/03/2022 COMPR EHENS МАРИНА METAB OLIC PANEL A/G ratio 1.3 ratio 1.0-2. 0 Not Available [facility] (Lab) [address] [place], [address], 08/03/2022 17:03:28 08/03/20 22 08/03/2022 LIPID PANEL cholesterol 139 mg/dL 140-19 9 low NIH CHLOE NSUS RECOM MENDA TION FOR GODWIN STERO L: ADULT CHILD LOW RISK: <200 <170 BORDE RLINE : <200- 239 ----- HIGH RISK: >240 >200 Not Available [facility] (Lab) [address] [place], [address], 08/03/2022 17:03:25 08/03/20 22 08/03/2022 LIPID PANEL triglyceride s 86 mg/dL 0-150 NIH CHLOE NSUS REPOR T RECOM MENDA TION FOR TRIGL YCERI ASHER: ADULT CHILD LOW RISK: <150 ----- BODER LINE: 150-1 99 ----- HIGH RISK: >200 ----- Not Available [facility] (Lab) [address] [place], [address], 08/03/2022 17:03:25 08/03/20 22 08/03/2022 LIPID PANEL HDL cholesterol 31 mg/dL 40- low Not Available [facility] (Lab) [address] [place] [address], [address], 08/03/2022 17:03:25 08/03/20 22 08/03/2022 LIPID PANEL LDL cholesterol, calculated 91 mg/dL 0-130 NIH CHLOE NSUS REPOR T RECOM MENDA TIONS FOR LDL: ADULT CHILD LOW RISK <130 <110 (OPTI MAL LDL) <100 ----- BORDE RLINE : 130-1 59 ----- HIGH RISK: >160 >130 A TRIGL YCERI DE RESUL T >400 INVAL IDATE S THE CALCU LATIO N FOR LDL FRACT IONAT ION - THE LDL RESUL T WILL NOT BE REPOR SEAN. Not Available [facility] (Lab) [address] [place], [address], 08/03/2022 17:03:25 08/03/20 22 08/03/2022 CBC/C OMPLE TE BLD COUNT W/DIF F hematocrit 44.0 % 39.3-5 0.0 Not Available [facility] (Lab) [address] [place], [address], 08/03/2022 16:26:16 08/03/20 22 08/03/2022 CBC/C OMPLE TE BLD COUNT W/DIF F white blood cells 10.2 x10'3 /uL 4.2-10 .8 Not Available [facility] (Lab) [address] [place], [address], 08/03/2022 16:26:16 08/03/20 22 08/03/2022 CBC/C OMPLE TE BLD COUNT W/DIF F red blood cells 4.96 x10'6 /uL 4.10-5 .80 Not Available [facility] (Lab) [address] [place], [address], 08/03/2022 16:26:16 08/03/20 22 08/03/2022 CBC/C OMPLE TE BLD COUNT W/DIF F hemoglobin 13.6 g/dL 13.2-1 7.0 Not Available [facility] (Lab) [address] [place], [address], 08/03/2022 16:26:16 08/03/20 22 08/03/2022 CBC/C OMPLE TE BLD COUNT W/DIF F mean red cell volume 88.7 fL 80.0-9 7.0 Not Available [facility] (Lab) [address] [place], [address], 08/03/2022 16:26:16 08/03/20 22 08/03/2022 CBC/C OMPLE TE BLD COUNT W/DIF F mean red cell hemoglobin 27.4 pg 27.0-3 3.0 Not Available [facility] (Lab) [address] [facility] [place], [address], 08/03/2022 16:26:16 08/03/20 22 08/03/2022 CBC/C OMPLE TE BLD COUNT W/DIF F mean RBC HGB concentratio n 30.9 g/dL 31.0-3 6.0 low Not Available [facility] (Lab) [address] [place], [address], 08/03/2022 16:26:16 08/03/20 22 08/03/2022 CBC/C OMPLE TE BLD COUNT W/DIF F red cell distribution width 13.0 % 11.8-1 5.5 Not Available [facility] (Lab) [address] [place], [address], 08/03/2022 16:26:16 08/03/20 22 08/03/2022 CBC/C OMPLE TE BLD COUNT W/DIF F platelets 329 x10'3 /uL 150-40 0 Not Available [facility] (Lab) [address] [place], [address], 08/03/2022 16:26:16 08/03/20 22 08/03/2022 CBC/C OMPLE TE BLD COUNT W/DIF F mean platelet volume 9.7 fL 9.0-12 .4 Not Available [facility] (Lab) [address] [place], [address], 08/03/2022 16:26:16 08/03/20 22 08/03/2022 CBC/C OMPLE TE BLD COUNT W/DIF F eosinophils 4.0 % 1.0-7. 0 Not Available [facility] (Lab) [address] [place], [address], 08/03/2022 16:26:16 08/03/20 22 08/03/2022 CBC/C OMPLE TE BLD COUNT W/DIF F neutrophils 49.4 % 39.0-7 2.0 Not Available [facility] (Lab) [address] [facility] [place], [address], 08/03/2022 16:26:16 08/03/20 22 08/03/2022 CBC/C OMPLE TE BLD COUNT W/DIF F lymphocytes 37.5 % 16.0-4 7.0 Not Available [facility] (Lab) [address] [place], [address], 08/03/2022 16:26:16 08/03/20 22 08/03/2022 CBC/C OMPLE TE BLD COUNT W/DIF F monocytes 8.5 % 5.0-12 .0 Not Available [facility] (Lab) [address] [place], [address], 08/03/2022 16:26:16 08/03/20 22 08/03/2022 CBC/C OMPLE TE BLD COUNT W/DIF F basophils 0.3 % 0.0-2. 0 Not Available [facility] (Lab) [address] [place], [address], 08/03/2022 16:26:16 08/03/20 22 08/03/2022 CBC/C OMPLE TE BLD COUNT W/DIF F immature granulocytes 0.3 % 0.00-0 .50 Not Available [facility] (Lab) [address] [place], [address], 08/03/2022 16:26:16 08/03/20 22 08/03/2022 CBC/C OMPLE TE BLD COUNT W/DIF F neutrophils, absolute count 5.06 x10'3 /uL 1.5-8. 0 Not Available [facility] (Lab) [address] [place], [address], 08/03/2022 16:26:16 08/03/20 22 08/03/2022 CBC/C OMPLE TE BLD COUNT W/DIF F lymphocytes, absolute count 3.84 x10'3 /uL 1.07-3 .43 high Not Available [facility] (Lab) [address] [place], [address], 08/03/2022 16:26:16 08/03/20 22 08/03/2022 CBC/C OMPLE TE BLD COUNT W/DIF F monocytes, absolute count 0.87 x10'3 /uL 0.29-0 .99 Not Available [facility] (Lab) [address] [place], [address], 08/03/2022 16:26:16 08/03/20 22 08/03/2022 CBC/C OMPLE TE BLD COUNT W/DIF F eosinophils, absolute count 0.41 x10'3 /uL 0.02-0 .53 Not Available [facility] (Lab) [address] [place], [address], 08/03/2022 16:26:16 08/03/20 22 08/03/2022 CBC/C OMPLE TE BLD COUNT W/DIF F basophils, absolute count 0.03 x10'3 /uL 0.01-0 .08 Not Available [facility] (Lab) [address] [place], [address], 08/03/2022 16:26:16 08/03/20 22 08/03/2022 CBC/C OMPLE TE BLD COUNT W/DIF F immature granulocytes ,absolute 0.03 x10'3 /uL 0.00-0 .05 Not Available [facility] (Lab) [address] [place], [address], 08/03/2022 16:26:16 08/03/20 22 08/03/2022 CBC/C OMPLE TE BLD COUNT W/DIF F nucleated red blood cells 0.0 % -0 Not Available [facility] (Lab) [address] [place], [address], 08/03/2022 16:26:16 08/03/20 22 08/03/2022 CBC/C OMPLE TE BLD COUNT W/DIF F NRBC# 0.00 x10'3 /uL Not Available [facility] (Lab) [address] [place], [address], 08/03/2022 16:26:16 01/25/20 23 01/24/2023 CBC/C OMPLE TE BLD COUNT W/DIF F white blood cells 9.7 x10'3 /uL 4.2-10 .8 Not Available [facility] (Lab) [address] [place], [address], 01/24/2023 18:02:21 01/25/20 23 01/24/2023 CBC/C OMPLE TE BLD COUNT W/DIF F red blood cells 4.80 x10'6 /uL 4.10-5 .80 Not Available [facility] (Lab) [address] [place], [address], 01/24/2023 18:02:21 01/25/20 23 01/24/2023 CBC/C OMPLE TE BLD COUNT W/DIF F hemoglobin 13.3 g/dL 13.2-1 7.0 Not Available [facility] (Lab) [address] [place], [address], 01/24/2023 18:02:21 01/25/20 23 01/24/2023 CBC/C OMPLE TE BLD COUNT W/DIF F hematocrit 42.4 % 39.3-5 0.0 Not Available [facility] (Lab) [address] [place], [address], 01/24/2023 18:02:21 01/25/20 23 01/24/2023 CBC/C OMPLE TE BLD COUNT W/DIF F mean red cell volume 88.3 fL 80.0-9 7.0 Not Available [facility] (Lab) [address] [place], [address], 01/24/2023 18:02:21 01/25/20 23 01/24/2023 CBC/C OMPLE TE BLD COUNT W/DIF F mean red cell hemoglobin 27.7 pg 27.0-3 3.0 Not Available [facility] (Lab) [address] [place], [address], 01/24/2023 18:02:21 01/25/20 23 01/24/2023 CBC/C OMPLE TE BLD COUNT W/DIF F mean RBC HGB concentratio n 31.4 g/dL 31.0-3 6.0 Not Available [facility] (Lab) [address] [place], [address], 01/24/2023 18:02:21 01/25/20 23 01/24/2023 CBC/C OMPLE TE BLD COUNT W/DIF F red cell distribution width 12.9 % 11.8-1 5.5 Not Available [facility] (Lab) [address] [place], [address], 01/24/2023 18:02:21 01/25/20 23 01/24/2023 CBC/C OMPLE TE BLD COUNT W/DIF F platelets 355 x10'3 /uL 150-40 0 Not Available [facility] (Lab) [address] [place], [address], 01/24/2023 18:02:21 01/25/20 23 01/24/2023 CBC/C OMPLE TE BLD COUNT W/DIF F mean platelet volume 9.6 fL 9.0-12 .4 Not Available [facility] (Lab) [address] [place], [address], 01/24/2023 18:02:21 01/25/2001/24/2023 CBC/C OMPLE TE BLD COUNT W/DIF F neutrophils 48.7 % 39.0-7 2.0 Not Available [facility] (Lab) [address] [place], [address], 01/24/2023 18:02:21 01/25/2001/24/2023 CBC/C OMPLE TE BLD COUNT W/DIF F lymphocytes 38.1 % 16.0-4 7.0 Not Available [facility] (Lab) [address] [place], [address], 01/24/2023 18:02:21 01/25/20 23 01/24/2023 CBC/C OMPLE TE BLD COUNT W/DIF F monocytes 8.4 % 5.0-12 .0 Not Available [facility] (Lab) [address] [place], [address], 01/24/2023 18:02:21 01/25/20 23 01/24/2023 CBC/C OMPLE TE BLD COUNT W/DIF F eosinophils 3.8 % 1.0-7. 0 Not Available [facility] (Lab) [address] [facility] [place], [address], 01/24/2023 18:02:21 01/25/20 23 01/24/2023 CBC/C OMPLE TE BLD COUNT W/DIF F basophils 0.6 % 0.0-2. 0 Not Available [facility] (Lab) [address] [place], [address], 01/24/2023 18:02:21 01/25/2001/24/2023 CBC/C OMPLE TE BLD COUNT W/DIF F immature granulocytes 0.4 % 0.00-0 .50 Not Available [facility] (Lab) [address] [place], [address], 01/24/2023 18:02:21 01/25/2001/24/2023 CBC/C OMPLE TE BLD COUNT W/DIF F neutrophils, absolute count 4.71 x10'3 /uL 1.5-8. 0 Not Available [facility] (Lab) [address] [place], [address], 01/24/2023 18:02:21 01/25/20 23 01/24/2023 CBC/C OMPLE TE BLD COUNT W/DIF F lymphocytes, absolute count 3.69 x10'3 /uL 1.07-3 .43 high Not Available [facility] (Lab) [address] [place], [address], 01/24/2023 18:02:21 01/25/2001/24/2023 CBC/C OMPLE TE BLD COUNT W/DIF F monocytes, absolute count 0.81 x10'3 /uL 0.29-0 .99 Not Available [facility] (Lab) [address] [place], [address], 01/24/2023 18:02:21 01/25/2001/24/2023 CBC/C OMPLE TE BLD COUNT W/DIF F eosinophils, absolute count 0.37 x10'3 /uL 0.02-0 .53 Not Available [facility] (Lab) [address] [place], [address], 01/24/2023 18:02:21 01/25/2001/24/2023 CBC/C OMPLE TE BLD COUNT W/DIF F basophils, absolute count 0.06 x10'3 /uL 0.01-0 .08 Not Available [facility] (Lab) [address] [place], [address], 01/24/2023 18:02:21 01/25/2001/24/2023 CBC/C OMPLE TE BLD COUNT W/DIF F immature granulocytes ,absolute 0.04 x10'3 /uL 0.00-0 .05 Not Available [facility] (Lab) [address] [place], [address], 01/24/2023 18:02:21 01/25/2001/24/2023 CBC/C OMPLE TE BLD COUNT W/DIF F nucleated red blood cells 0.0 % -0 Not Available [facility] (Lab) [address] [place], [address], 01/24/2023 18:02:21 01/25/2001/24/2023 CBC/C OMPLE TE BLD COUNT W/DIF F NRBC# 0.00 x10'3 /uL Not Available [facility] (Lab) [address] [place], [address], 01/24/2023 18:02:21 01/25/20 23 01/24/2023 LIPID PANEL cholesterol 129 mg/dL 140-19 9 low NIH CHLOE NSUS RECOM MENDA TION FOR GODWIN STERO L: ADULT CHILD LOW RISK: <200 <170 BORDE RLINE : <200- 239 ----- HIGH RISK: >240 >200 Not Available [facility] (Lab) [address] [place], [address], 01/24/2023 18:11:29 01/25/20 23 01/24/2023 LIPID PANEL triglyceride s 128 mg/dL 0-150 NIH CHLOE NSUS REPOR T RECOM MENDA TION FOR TRIGL YCERI ASHER: ADULT CHILD LOW RISK: <150 ----- BODER LINE: 150-1 99 ----- HIGH RISK: >200 ----- Not Available [facility] (Lab) [address] [place], [address], 01/24/2023 18:11:29 01/25/20 23 01/24/2023 LIPID PANEL HDL cholesterol 26 mg/dL 40- low Not Available [facility] (Lab) [address] [place], [address], 01/24/2023 18:11:29 01/25/20 23 01/24/2023 LIPID PANEL LDL cholesterol, calculated 77 mg/dL 0-130 NIH CHLOE NSUS REPOR T RECOM MENDA TIONS FOR LDL: ADULT CHILD LOW RISK <130 <110 (OPTI MAL LDL) <100 ----- BORDE RLINE : 130-1 59 ----- HIGH RISK: >160 >130 A TRIGL YCERI DE RESUL T >400 INVAL IDATE S THE CALCU LATIO N FOR LDL FRACT IONAT ION - THE LDL RESUL T WILL NOT BE REPOR SEAN. Not Available [facility] (Lab) [address] [place], [address], 01/24/2023 18:11:29 01/25/20 23 01/24/2023 COMPR EHENS МАРИНА METAB OLIC PANEL sodium 140 mmol/ L 137-14 5 Not Available [facility] (Lab) [address] [place], [address], 01/24/2023 18:11:34 01/25/20 23 01/24/2023 COMPR EHENS МАРИНА METAB OLIC PANEL potassium 4.6 mmol/ L 3.5-5. 1 Not Available [facility] (Lab) [address] [place], [address], 01/24/2023 18:11:34 01/25/20 23 01/24/2023 COMPR EHENS МАРИНА METAB OLIC PANEL chloride 102 mmol/ L 98-107 Not Available [facility] (Lab) [address] [place], [address], 01/24/2023 18:11:34 01/25/20 23 01/24/2023 COMPR EHENS МАРИНА METAB OLIC PANEL carbon dioxide 25 mmol/ L 22-30 Not Available [facility] (Lab) [address] [place], [address], 01/24/2023 18:11:34 01/25/20 23 01/24/2023 COMPR EHENS МАРИНА METAB OLIC PANEL anion gap 17.6 mmol/ L 14-22 Not Available [facility] (Lab) [address] [place], [address], 01/24/2023 18:11:34 01/25/20 23 01/24/2023 COMPR EHENS МАРИНА METAB OLIC PANEL glucose 121 mg/dL 70-99 high Not Available [facility] (Lab) [address] [facility] [place], [address], 01/24/2023 18:11:34 01/25/20 23 01/24/2023 COMPR EHENS МАРИНА METAB OLIC PANEL BUN 17 mg/dL 8-19 Not Available [facility] (Lab) [address] [place], [address], 01/24/2023 18:11:34 01/25/20 23 01/24/2023 COMPR EHENS МАРИНА METAB OLIC PANEL creatinine 0.79 mg/dL 0.66-1 .25 Not Available [facility] (Lab) [address] [place], [address], 01/24/2023 18:11:34 01/25/20 23 01/24/2023 COMPR EHENS МАРИНА METAB OLIC PANEL GFR >60 Refer ence Range : [place] [facility] GFR Healt hy Adult : >60 mL/mi n/1.7 3 m2 Chron ic Kidne y Disea se: 15-60 mL/mi n/1.7 3 m2 Kidne y Failu re: <15/m L/min /1.73 m2 [email or web address] The MDRD study equat ion has not been valid ated in child perez <18 years of age; pregn ant women ; the elder ly >85 years of age; or in some racia l or ethni c subgr oups, such as Hismi nics. Outsi de the valid ated albino eters , estim ated GFR is less accur ate, requi ring clini christie judgm ent on a case- by-ca se basis . Clini christie inter preta tion for other races and ages must be made by the clini chester. The MDRD study equat ion has not been valid ated for the evalu ation of serum creat inine relat ed to nutri mak l statu s or medic ation usage . For perso ns <18 years of age, a pedia tric GFR calcu lator is avail able on the [facility] websi te: https :[email or web address] w.chelsie duncan.o rg/pr ofess ional s/kdo qi/gf r_cal culat or Not Available [facility] (Lab) [address] [place], [address], 01/24/2023 18:11:34 01/25/20 23 01/24/2023 COMPR EHENS МАРИНА METAB OLIC PANEL alkaline phosphatase 79 U/L 38-126 Not Available [facility] (Lab) [address] [facility] [place], [address], 01/24/2023 18:11:34 01/25/20 23 01/24/2023 COMPR EHENS МАРИНА METAB OLIC PANEL alanine aminotransfe rase 50 U/L 0-50 Not Available [facility] (Lab) [address] [place], [address], 01/24/2023 18:11:34 01/25/20 23 01/24/2023 COMPR EHENS МАРИНА METAB OLIC PANEL aspartate aminotransfe rase 42 U/L 15-46 Not Available [facility] (Lab) [address] [place], [address], 01/24/2023 18:11:34 01/25/20 23 01/24/2023 COMPR EHENS МАРИНА METAB OLIC PANEL bilirubin, total 0.60 mg/dL 0.20-1 .30 Not Available [facility] (Lab) [address] [place], [address], 01/24/2023 18:11:34 01/25/20 23 01/24/2023 COMPR EHENS МАРИНА METAB OLIC PANEL calcium 9.6 mg/dL 8.4-10 .2 Not Available [facility] (Lab) [address] [place], [address], 01/24/2023 18:11:34 01/25/20 23 01/24/2023 COMPR EHENS МАРИНА METAB OLIC PANEL total protein 7.7 g/dL 6.3-8. 2 Not Available [facility] (Lab) [address] [place], [address], 01/24/2023 18:11:34 01/25/20 23 01/24/2023 COMPR EHENS МАРИНА METAB OLIC PANEL albumin 4.1 g/dL 3.4-5. 0 Not Available [facility] (Lab) [address] [place], [address], 01/24/2023 18:11:34 01/25/20 23 01/24/2023 COMPR EHENS МАРИНА METAB OLIC PANEL globulin 3.6 g/dL 2.6-4. 2 Not Available [facility] (Lab) [address] [place], [address], 01/24/2023 18:11:34 01/25/20 23 01/24/2023 COMPR EHENS МАРИНА METAB OLIC PANEL A/G ratio 1.1 ratio 1.0-2. 0 Not Available [facility] (Lab) [address] [place], [address], 01/24/2023 18:11:34 01/25/20 23 01/24/2023 T4 FREE free T4 1.30 NG/dL 0.78-2 .19 Not Available [facility] (Lab) [address] [place], [address], 01/24/2023 19:05:42 01/25/20 23 01/24/2023 T3 FREE free T3 4.0 pg/mL 2.77-5 .27 Not Available [facility] (Lab) [address] [place], [address], 01/24/2023 19:05:46 01/25/20 23 01/24/2023 TSH thyroid-stim ulating hormone 3.390 uIU/m L 0.465- 4.680 Not Available [facility] (Lab) [address] [place], [address], 01/24/2023 19:05:53 01/25/20 23 01/24/2023 HEMOG LOBIN A1C HA1C 5.7 % 4.0-6. 0 Diabe soial Scree grant Crite cathleen: <5.7% Consi stent with absen ce of diabe soila 5.7-6 .4% Consi stent with incre ased risk for diabe soila (pred iabet es) >OR=6 .5% Consi stent with diabe soila REFER ENCE: Diabe soila Care 2015, 39(Bradley ppl.1 ):s13 -s22 Not Available [facility] (Lab) [address] [place], [address], 01/24/2023 19:59:34 07/12/2007/12/2023 CBC/C OMPLE TE BLD COUNT W/DIF F white blood cells 8.0 x10'3 /uL 4.2-10 .8 Not Available [facility] (Lab)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 THE PAST YEAR ? N ATHEROSCLEROSIS N BREAST PROBLEMS N DIALYSIS N ECZEMA N OSTEOPOROSIS N ARTHRITIS Y APPENDICITIS N DIABETES, TYPE Y BAD TEETH N ENT N HEARTBURN / REFLUX N AUTISM SPECTRUM DISORDER (ASD) N HEPATITIS / LIVER DISEASE N PULMONARY DISEASE N GOUT N SLEEP DISORDER N ALZHEIMER'S DISEASE N Brain Problems N HERPES N DEMENTIA N HEADACHES/MIGRAINES N SEIZURES/EPILEPSY N VASCULAR DISEASE N PACEMAKER N Blood Disorder N DIZZINESS N HEART DISEASE/HEART PROBLEMS N KIDNEY DISEASE N MULTIPLE SCLEROSIS N CARDIAC ARRHYTHMIA N CANCER: SPECIFY N ANESTHESIA COMPLICATIONS N ATRIAL FIBRILLATION N Gall Stones N PULMONARY EMBOLISM N AUTOIMMUNE DISEASE N Immunizations Vaccine Type Date Status Note Provider Nam e and Address Organization Details Recorded Time COVID-19, mRNA, LNP-S, PF, 30 mcg/0.3 mL dose 09/15/2021 completed Not Available [facility] 3 23:26:21 COVID-19, mRNA, LNP-S, PF, 30 mcg/0.3 mL dose 01/30/2021 completed Not Available [facility] 3 23:26:21 COVID-19, mRNA, LNP-S, PF, 30 mcg/0.3 mL dose 01/09/2021 completed Not Available [facility] 3 23:26:21 Past Encounters Encounter ID Performer Location Encounter Start Date Encounter Closed Date Diagnosis/Indication Diagnosis SNOMED-CT Code Diagnosis ICD10 Code Diagnosis Note [id number] [facility] [place] [address] [place] [address] y , [place] [address] 10/27/2020 00:00:00 10/27/2020 20:37:13 [id number] [facility] [place] [address] [place] [address] y , [place] [address] 02/14/2021 00:00:00 02/21/2021 22:27:46 [id number] [facility] [address] [address] 02/22/2021 00:00:00 02/22/2021 11:23:48 [id number] [facility] [address] [address] 03/22/2021 00:00:00 03/22/2021 11:19:15 [id number] [facility] [address] [address] 05/23/2021 00:00:00 05/23/2021 14:28:39 [id number] [facility] [place] [address] [place] [address] y , [place] [address] 06/13/2021 00:00:00 06/16/2021 11:37:30 [id number] [facility] [place] [address] [place] [address] [place] [address] 11/21/2021 00:00:00 11/21/2021 21:21:44 [id number] [facility] [place] [address] [place] [address] [place] [address] 12/19/2021 00:00:00 01/07/2022 17:24:28 [id number] [facility] [place] [address] [place] [address] [place] [address] 01/16/2022 00:00:00 01/22/2022 13:05:04 [id number] [facility] [place] [address] [facility] [place] [address] 02/13/2022 00:00:00 02/13/2022 21:26:12 [id number] [facility] Internal [facility] [place] [address] [facility] [place] [address] 04/24/2022 00:00:00 06/17/2022 17:43:58 [id number] [facility] Internal [facility] [place] [address] [place] [address] [place] [address] 06/05/2022 00:00:00 06/10/2022 15:42:13 [id number] S_G Internal Med [facility] [address] [place] , [address] [address] 07/31/2022 00:00:00 08/27/2022 12:18:03 [id number] [facility] Internal [facility] [place] [address] [place] [address] [place] [address] 10/04/2022 00:00:00 10/04/2022 14:04:18 [id number] Alexis Laura MD [facility] Internal Med [facility] [address] [place] , [address] [address] 02/25/2023 11:30:06 02/25/2023 12:58:29 Adult health examination 843105090 Z00.00 Depression screening 171 543206 Z13.31 neg Body mass index 40+ - severely obese 447901091 Z68.41 Dyslipidemia 919995472 E 78.5 Sleep apnea 55850700 G47 .30 Diabetes mellitus 080838 09 E11.9 Type 2 geoffrey betes mellitus without complication 496498922 E11.9 Obesity 303656269 E66.9 [id number] Alexis Laura MD [facility] Internal [facility] [place] [address] [place] [address] [place] [address] 04/04/2023 11:48:34 04/04/2023 12:35:18 Dyslipidemia 506476303 E78.5 Sleep apnea 40900954 G47 .30 Morbid obesity 436016387 E66.01 Type 2 geoffrey betes mellitus without complication 090929326 E11.9 [id number] Alexis Laura MD [facility] Internal Med [place] [address] [facility] [place] [address] 07/04/2023 11:34:13 07/04/2023 12:50:30 Dyslipidemia 347873080 E78.5 Diabetes mellitus 342064 09 E11.9 Sleep apnea 62090784 G47 .30 Health Concerns Section Related Observation LastModified by Organization Detai ls LastModified Time None Recorded Concern Status LastModified by Organization Details LastModified Time None Recorded Advance Directives Directive N: Payers Encounter Date Sequence Insurance Name Policy Number Policy Harris Covered Member ID Harris Member ID Guarantor Name 02/25/2023 1 [place] [id number] Billy Butler [id number] Billy Butler 04/04/2023 1 [place] [id number] Billy Butler [id number] Billy Butler 07/04/2023 1 [place] [id number] Billy Butler [id number] Billy Butler Notes Date Note Type Note Provider Name and Address Organization Details Recorded Time 02/25/2023 text/html Diabetes no polyphagia polydipsia sugars have been doing [place] [facility] completed obesity try to lose weight Alexis Laura MD [address], [place], [address], [employer] 03/09/2023 17:00:58 04/04/2023 text/html Dyslipidemia cou ld do better on diet sleep apnea compliant morbid obesity trying to lose weight diabetes no polyphagia no polydipsia is taking his medication as prescribed Alexis Laura MD [address], [place], [address], [employer] 06/23/2023 18:17:54 07/04/2023 text/html Dyslipidemia cou ld do better on diet sleep apnea compliant morbid obesity trying to lose weight diabetes no polyphagia no polydipsia is taking his medication as prescribed Alexis Laura MD [address], [facility] [address], [place], [address], [place] [facility] 07/05/2023 14:15:47
--- OUTSIDE RECORDS SUMMARY | 2024-10-01 10:59 | XMS_ITS | Referral Summary ---
Author Organization [facility] Address [address] [address] Care Team Providers Care College Physics Instructor Name Role Phone Guillermo Laura MD Primary Care Provider [phone] Source Comments [facility],non-owned Affiliates and Associated Physician Practices is amultiple site organization consisting of ambulatory clinics and hospital sitesin [place], [place], [place] and [place]. This disclosure is being madepursuant to the Care Everywhere program and may not contain all information available regarding this patient. Last updated 18.[facility] Encounters Date Type Department Care Team Description 08/13/2024 1:00 PM TECHNOLOGY EDUCATION INSTRUCTOR Office Visit [facility] Neurosciences [address] [place] [address] Noah Maxwell MD Intractable chronic migraine with aura with status migrainosus (Primary Dx); Severe headache; Medication overuse headache; Fall, initial encounter; Cerebrovascular accident (CVA) due to embolism of right carotid artery (HCC) from Last 3 Months Allergies No known active allergies Medications * Be aware that medications may not be up to date on this document. Alwaysverify current medications with the patient. Medication Sig Dispensed Refills Start Date End Date Status topiramate (Topamax) 25 MG tablet Take 1 (one) tablet by mouth as directed Week 1: 25 mg at bedtime. Week 2: 25 mg twice a day. Week 3: 25 mg AM, 50 mg PM. Week 4: 50 mg twice a day. 120 tablet 3 02/19/2024 Active riboflavin 400 MG capsule Take 1 (one) capsule by mouth once daily 100 capsule 6 02/19/2024 Active atorvastatin (Lipitor) 20 MG tablet QD 10/30/2023 Active Toujeo SoloStar pen INJECT 40 UNITS UNDER THE SKIN ONCE DAILY Active metFORMIN (Glucophage) 1000 MG tablet 1 (one) tablet 2 times daily Active Januvia 100 MG tablet Take 1 (one) tablet by mouth once daily Active rimegepant (Nurtec ODT) 75 MG tabletIndications :Intractable chronic migraine with aura with status migrainosus Take 75 mg by mouth once daily as needed for Migraine 16 tablet 2 03/02/2024 Active propranolol ER 24hr (Inderal LA) 60 MG capsuleIndication s:Intractable chronic migraine with aura with status migrainosus Take 1 (one) capsule by mouth once daily 90 capsule 4 06/30/2024 Active nortriptyline (Pamelor) 10 MG capsule Take 1 (one) capsule by mouth 3 times daily Active Ozempic, 1 MG/DOSE, 4 MG/3ML pen Inject 1 (one) mg subcutaneously 04/28/2024 Active Active Problems No known active problems Social History Tobacco Use Types Packs/Day Years Used Date Smoking Tobacco: Never Assessed Sex and Gender Information Value Date Recorded Sex Assigned at Not on file Gender Identity Not on file Sexual Orientation Not on file Last Filed Vital Signs Vital Sign Reading Time Taken Comments Blood Pressure 125/83 08/13/2024 1:08 PM TECHNOLOGY EDUCATION INSTRUCTOR Pulse 89 08/13/2024 1:08 PM TECHNOLOGY EDUCATION INSTRUCTOR Temperature 36.6 C (97.8 F) 08/13/2024 1:08 PM TECHNOLOGY EDUCATION INSTRUCTOR Respiratory Rate - - Oxygen Saturation 99% 08/13/2024 1:08 PM TECHNOLOGY EDUCATION INSTRUCTOR Inhaled Oxygen Concentration - - Weight 143.8 kg (317 lb) 08/13/2024 1:08 PM TECHNOLOGY EDUCATION INSTRUCTOR Height 182.9 cm (6') 08/13/2024 1:08 PM TECHNOLOGY EDUCATION INSTRUCTOR Body Mass Index 42.99 08/13/2024 1:08 PM TECHNOLOGY EDUCATION INSTRUCTOR Plan of Treatment Upcoming Encounters Date Type Department Care Team (Late st Contact Info) Description 02/11/2025 1:20 PM CDT Office Visit [facility] [address] [facility] [facility] [address] [place] [address] Noah Maxwell MD [address] [place] [address] Care Teams College Physics Instructor Relationship Specialty Start Date End Date Guillermo Laura MD [address] [place] [address] PCP - General Internal Medicine 02/19/24
--- OUTSIDE RECORDS SUMMARY | 2024-10-01 10:59 | XMS_ITS | Clinical Summary ---
Author Organization [facility] Address [address] [place] [address] Care Team Providers Care Data Collector Name Role Phone Guillermo Laura MD Primary Care Provider [phone] Source Comments [facility],non-owned Affiliates and Associated Physician Practices is amultiple site organization consisting of ambulatory clinics and hospital sitesin [place], [place], [place] and [place]. This disclosure is being madepursuant to the Care Everywhere program and may not contain all information available regarding this patient. Last updated 18.[facility] Allergies No known active allergies Medications * [...] Active Active Problems No known active problems Encounters Date Type Department Care Team Description 08/13/2024 1:00 PM ACCOUNTS MANAGER Office Visit [facility] [address] [facility] [address] [place] [address] Noah Maxwell MD Intractable chronic migraine with aura with status migrainosus (Primary Dx); Severe headache; Medication overuse headache; Fall, initial encounter; Cerebrovascular accident (CVA) due to embolism of right carotid artery (HCC) from Last 3 Months Social History Tobacco Use Types Packs/Day Years Used Date Smoking Tobacco: Never Assessed Sex and Gender Information Value Date Recorded Sex Assigned at Not on file Gender Identity Not on file Sexual Orientation Not on file Last Filed Vital Signs Vital Sign Reading Time Taken Comments Blood Pressure 125/83 08/13/2024 1:08 PM ACCOUNTS MANAGER Pulse 89 08/13/2024 1:08 PM ACCOUNTS MANAGER Temperature 36.6 C (97.8 F) 08/13/2024 1:08 PM ACCOUNTS MANAGER Respiratory Rate - - Oxygen Saturation 99% 08/13/2024 1:08 PM ACCOUNTS MANAGER Inhaled Oxygen Concentration - - Weight 143.8 kg (317 lb) 08/13/2024 1:08 PM ACCOUNTS MANAGER Height 182.9 cm (6') 08/13/2024 1:08 PM ACCOUNTS MANAGER Body Mass Index 42.99 08/13/2024 1:08 PM ACCOUNTS MANAGER Plan of Treatment Upcoming Encounters Date Type Department Care Team (Late st Contact Info) Description 02/11/2025 1:20 PM CDT Office Visit [facility] [address] [facility] [address] [place] [address] Noah Maxwlel MD [address] [facility] [address] [place] [address] Health Maintenance Due Date Last Done Comments COLOGUARD (AGES 45-75) - COL ON CA SCREENING 1965 COLON MONITORING 1965 COLONOSCOPY - COLON CA SCREENING 1965 CT COLONOGRAPHY - COLON CA SCREENING 1965 Colorectal Cancer Screening 1965 FIT - COLON CA SCREENING 1965 FLEX SIG - COLON CA SCREENING 1965 HIV SCREENING 1980 HEPATITIS C SCREENING 05/20/1983 DTAP/TDAP/TD VACCINES (1 - Tdap) 1984 HEPATITIS B VACCINE (1 of 3 - 19+ 3-dose series) 1984 PNEUMOCOCCAL VACCINE 50+ (1 of 2 - PCV) 1984 PNEUMOCOCCAL VACCINE (1 of 2 - PCV) 1984 ZOSTER VACCINE (1 of 2) 2015 SCREENING FOR DIABETES 02/19/2024 COVID-19 VACCINE (4 - 2023-2 5 season) 2024 09/15/2021, 01/30/2021, 01/09/2021 INFLUENZA VACCINE (#1) 2024 DEPRESSION SCREENING 08/26/2024 HIB VACCINE Aged Out No longer eligi ble based on patient's age to complete this topic HPV VACCINE Aged Out No longer eligi ble based on patient's age to complete this topic MENINGOCOCCAL (Group B) VACCINE Aged Out No longer eligible b ased on patient's age to complete this topic MENINGOCOCCAL VACCINE Aged Out No pascual toño eligible based on patient's age to complete this topic Care Teams Data Collector Relationship Specialty Start Date End Date Guillermo Laura MD [address] [place] [address] PCP - General Internal Medicine 02/19/24
--- OUTSIDE RECORDS SUMMARY | 2024-10-01 10:59 | XMS_ITS | Data Portability ---
Author Organization [facility] [place] Patterson Address [address] [place] [address] Care Team Providers Care Garage Door Technician Name Role Phone ALEXIS LAURA Primary Care Provider [phone] Assessment Encounter Date Assessment Date Assessment LastModified by Organization Details LastModified Time 11/28/2023 11/28/2023 Headache nothing specific on examination MRI brain with contrast dyslipidemia atorvastatin diabetes Ozempic metformin Januvia and Toujeo blood work has been ordered he will follow-up with me in 4 months he will call the day after he gets the scan done headache becomes severe ER [email or web address] Not available 12/01/2023 14:25:44 04/06/2024 04/06/2024 we will continue current therapy he will follow with Neurology caloric restriction has been discussed targets for blood pressure LDL A1c in the face of diabetes discussed. Follow up with me in 3-4 months Not available 04/25/2024 18:30:23 09/03/2024 09/03/2024 Augmentin until he gets into the dentist blood work redouble his efforts on trying to lose some weight Ozempic 2 mg diabetic foot exam keep up-to-date with diabetic eye exam blood work has been ordered. Healthy lifestyle care instructions. Get colonoscopy or Cologuard report follow up 4 months [email or web address] Not available 09/27/2024 22:26:44 Plan of Treatment Reminders Order Date Submit Date Provider Last Modified By Organization Details Last Modified Time Details Appointments ANY 15 2024 03:00P Samanta Laura MD Not available Not available Not available Lab glucose tolerance test, post-75G, 3 specimens 2016 017 MARION [facility], [address], [address], [place], [address], 06/14/2017 16:39:58 HbA1c (hemoglob in A1c), blood 2016 017 ROSALIE In-Office Order, Internal Use Only DO Not Attach Compendium DO Not Attach Compendium, Do Not Delete/merge, [id number] 06/14/2017 16:56:04 urinalysi s, dipstick 2016 017 [email or web address] In-Office Order, Internal Use Only DO Not Attach Compendium DO Not Attach Compendium, Do Not Delete/merge, [id number] 06/14/2017 17:20:06 CK (creatine kinase), total, serum 2016 017 ROSALIE [facility], [address], [address], [place], [address], 06/17/2017 15:57:52 lipid panel, serum 2016 017 ROSALIE [facility], [address], [address], [place], [address], 06/17/2017 15:57:51 CMP, serum or plasma 2016 017 ROSALIE [facility], [address], [address], [place], [address], 06/17/2017 15:57:51 glucose, fingersti ck, blood 2016 017 [email or web address] 6 In-Office Order, Internal Use Only DO Not Attach Compendium DO Not Attach Compendium, Do Not Delete/merge, [id number] 06/18/2017 14:03:10 HbA1c (hemoglob in A1c), blood 2023 024 ROSALIE [facility], [address], [address], [place], [address], 12/12/2023 23:24:20 lipid panel, serum 2023 024 ROSALIE [facility], [address], [address], [place], [address], 12/12/2023 15:58:35 CMP, serum or plasma 2023 024 ROSALIE [facility], [address], [address], [place], [address], 12/12/2023 15:58:35 CBC w/ auto diff 2023 024 ROSALIE [facility], [address], [address], [place], [address], 12/12/2023 15:58:35 PSA, total, serum or plasma 2023 024 [facility], [address], [address], [place], [address], 05/06/2024 11:59:18 albumin/c reatinine , mass ratio, urine 2023 024 [facility], [address], [address], [place], [address], 05/06/2024 11:59:45 HbA1c (hemoglob in A1c), blood 2023 024 [facility], [address], [address], [place], [address], 05/06/2024 11:59:27 CBC w/ auto diff 2023 024 [facility], [address], [address], [place], [address], 05/06/2024 11:59:35 CMP, serum or plasma 2023 024 ROSALIE [facility], [address], [address], [place], [address], 05/06/2024 12:00:16 lipid panel, serum 2023 024 [email or web address] [facility], [address], [address], [place], [address], 05/06/2024 11:59:07 albumin/c reatinine , mass ratio, urine 2024 025 ROSALIE [facility], [address], [address], [place], [address], 09/24/2024 06:09:00 HbA1c (hemoglob in A1c), blood 2024 025 ROSALIE [facility], [address], [address], [place], [address], 09/24/2024 06:09:04 CBC w/ auto diff 2024 025 ROSALIE [facility], [address], [address], [place], [address], 09/24/2024 06:08:48 CMP, serum or plasma 2024 025 ROSALIE [facility], [address], [address], [place], [address], 09/24/2024 06:08:52 lipid panel, serum 2024 025 ROSALIE [facility], [address], [address], [place], [address], 09/24/2024 06:08:56 Referral None recorded. Procedures None recorded. Surgeries None recorded. Imaging MRI, brain, w/ contrast 2023 024 [facility] ([facility]), [address], [place], [address], 12/03/2023 09:20:56 Medication Orders Humalog KwikPen (U-100) Insulin 100 unit/mL subcutane ous 2016 017 [id number] [facility], [address] [facility] [place], [address], 11/28/2023 10:03:34 Augmentin 875 mg-125 mg tablet 2024 025 [email or web address] [id number], [address], [place], [place], [id number], 09/03/2024 16:46:48 Ozempic 2 mg/dose (8 mg/3 mL) subcutane ous pen injector 2024 025 [email or web address] [facility], [address] [place] [address], [address], 09/03/2024 16:46:48 Patient TargetsNo targets recorded. Patient Instructions Encounter Date Encounter Id Patient Instructions Last Modified By Organization Details Last Modified Time 06/17/2017 [id number] Go eat immediately ; keep appt later this week for instructions Not available 06/17/2017 13:34:22 09/03/2024 [id number] diabetic foot exam* [email or web address] Not available 09/24/2024 09:54:25 A healthy lifestyle: care instructions [email or web address] Not available 09/03/2024 16:46:48 Reason for Referral None Reported. Results Created Date Observation Date Name Description Value Unit Range Abnormal Flag Note LastModifiedBy Organization Detail LastModifiedTime 06/17/20 17 06/17/2017 [facility], blood Blood Glucose: mg/dl 539 Not Available In-Off ice Order Internal Use Only DO Not Attach Compendium DO Not Attach Compendium, Do Not Delete/merge, [id number] 06/17/2017 13:23:33 06/14/20 17 06/14/2017 urina lysis , dipst ick Leukocytes Negati ve Not Available In-Office Order Internal Use Only DO Not Attach Compendium DO Not Attach Compendium, Do Not Delete/merge, 06/14/2017 16:47:46 06/14/20 17 06/14/2017 urina lysis , dipst ick Nitrite negati ve Not Available In-Office Order Internal Use Only DO Not Attach Compendium DO Not Attach Compendium, Do Not Delete/merge, 06/14/2017 16:47:46 06/14/20 17 06/14/2017 urina lysis , dipst ick Urobilinogen .2 Not Available In-Of fice Order Internal Use Only DO Not Attach Compendium DO Not Attach Compendium, Do Not Delete/merge, 06/14/2017 16:47:46 06/14/20 17 06/14/2017 urina lysis , dipst ick Protein Negati ve Not Available In-Office Order Internal Use Only DO Not Attach Compendium DO Not Attach Compendium, Do Not Delete/merge, 06/14/2017 16:47:46 06/14/20 17 06/14/2017 urina lysis , dipst ick pH 5.5 Not Available In-Office Order Internal Use Only DO Not Attach Compendium DO Not Attach Compendium, Do Not Delete/merge, 06/14/2017 16:47:46 06/14/20 17 06/14/2017 urina lysis , dipst ick Blood Negati ve Not Available In-Office Order Internal Use Only DO Not Attach Compendium DO Not Attach Compendium, Do Not Delete/merge, 06/14/2017 16:47:46 06/14/20 17 06/14/2017 urina lysis , dipst ick Specific [place] 1.010 Not Available In-Off ice Order Internal Use Only DO Not Attach Compendium DO Not Attach Compendium, Do Not Delete/merge, 06/14/2017 16:47:46 06/14/20 17 06/14/2017 urina lysis , dipst ick Ketone Modera te Not Available In-Office Order Internal Use Only DO Not Attach Compendium DO Not Attach Compendium, Do Not Delete/merge, 06/14/2017 16:47:46 06/14/20 17 06/14/2017 urina lysis , dipst ick Bilirubin Negati ve Not Available In-Office Order Internal Use Only DO Not Attach Compendium DO Not Attach Compendium, Do Not Delete/merge, [id number] 06/14/2017 16:47:46 06/14/20 17 06/14/2017 urina lysis , dipst ick Glucose 1000 Not Available In-Office Order Internal Use Only DO Not Attach Compendium DO Not Attach Compendium, Do Not Delete/merge, [id number] 06/14/2017 16:47:46 06/14/20 17 06/14/2017 urina lysis , dipst ick Appearance Clear Not Available In-Offi ce Order Internal Use Only DO Not Attach Compendium DO Not Attach Compendium, Do Not Delete/merge, [id number] 06/14/2017 16:47:46 06/14/20 17 06/14/2017 urina lysis , dipst ick Color Pale Yellow Not Available In-Office Order Internal Use Only DO Not Attach Compendium DO Not Attach Compendium, Do Not Delete/merge, [id number] 06/14/2017 16:47:46 06/14/20 17 06/14/2017 HbA1c (hemo globi n A1c), blood HbA1c 11.1 Not Available In-Office Order Internal Use Only DO Not Attach Compendium DO Not Attach Compendium, Do Not Delete/merge, [id number] 06/14/2017 16:42:39 01/30/20 22 01/29/2022 nonin vasiv e color ectal cance r DNA + occul t blood scree grant, QL, stool fecal occult blood test negati ve Not Available Not Available 16:14:09 05/13/20 24 05/13/2024 ALBUM IN/CR EATIN INE RATIO ,URIN E creatinine, urine 104.69 mg/dL Not Available [facility] (Surgery Scheduling) [address], [place], [address], 05/14/2024 03:37:37 05/13/20 24 05/13/2024 ALBUM IN/CR EATIN INE RATIO ,URIN E albumin, urine <0.5 mg/dL Not Available [facility] (Surgery Scheduling) [address], [place], [address], 05/14/2024 03:37:37 05/13/20 24 05/13/2024 ALBUM IN/CR EATIN INE RATIO ,URIN E alb/creat ratio COMMEN T Not Calcu lated Not Available [facility] (Surgery Scheduling) [address], [place], [address], 05/14/2024 03:37:37 05/13/20 24 05/13/2024 LIPID PANEL cholesterol, total 145 mg/dL <[address] [facility] (Surgery Scheduling) [address], [place], [address], 05/14/2024 03:37:38 05/13/20 24 05/13/2024 LIPID PANEL triglyceride s 128 mg/dL <[address] [facility] (Surgery Scheduling) [address], [place], [address], 05/14/2024 03:37:38 05/13/20 24 05/13/2024 LIPID PANEL HDL cholesterol 31 mg/dL >40 below low normal Not Available [facility] (Surgery Scheduling) [address], [place], [address], 05/14/2024 03:37:38 05/13/20 24 05/13/2024 LIPID PANEL VLDL cholesterol christie 26 mg/dL <=[address] [facility] (Surgery Scheduling) [address], [place], [address], 05/14/2024 03:37:38 05/13/20 24 05/13/2024 LIPID PANEL LDL chol calc ([facility]) 88 mg/dL <[address] [facility] (Surgery Scheduling) [address], [place], [address], 05/14/2024 03:37:38 05/13/20 24 05/13/2024 COMP. METAB OLIC PANEL (14) glucose 77 mg/dL 70-105 Not Available [facility] (Surgery Scheduling) [address], [place], [address], 05/14/2024 03:37:38 05/13/20 24 05/13/2024 COMP. METAB OLIC PANEL (14) BUN 14 mg/dL 7-26 Not Available [facility] (Surgery Scheduling) [address], [place], [address], 05/14/2024 03:37:38 05/13/20 24 05/13/2024 COMP. METAB OLIC PANEL (14) creatinine 0.81 mg/dL 0.72-[address] [facility] (Surgery Scheduling) [address], [place], [address], 05/14/2024 03:37:38 05/13/20 24 05/13/2024 COMP. METAB OLIC PANEL (14) eGFR >90 mL/mi n/1.7 3_m2 >=[address] [facility] (Surgery Scheduling) [address], [place], [address], 05/14/2024 03:37:38 05/13/20 24 05/13/2024 COMP. METAB OLIC PANEL (14) sodium 140 mmol/ L 136-[address] [facility] (Surgery Scheduling) [address] , [place], [address], 05/14/2024 03:37:38 05/13/20 24 05/13/2024 COMP. METAB OLIC PANEL (14) potassium 4.4 mmol/ L 3.5-5. [address] [facility] (Surgery Scheduling) [address] , [place], [address], 05/14/2024 03:37:38 05/13/20 24 05/13/2024 COMP. METAB OLIC PANEL (14) chloride 108 mmol/ L 98-107 above high normal Not Available [facility] (Surgery Scheduling) [address], [place], [address], 05/14/2024 03:37:38 05/13/20 24 05/13/2024 COMP. METAB OLIC PANEL (14) carbon dioxide, total 23 mmol/ L 22-[address] [facility] (Surgery Scheduling) [address], [place], [address], 05/14/2024 03:37:38 05/13/20 24 05/13/2024 COMP. METAB OLIC PANEL (14) calcium 10.2 mg/dL 8.4-[address] [facility] (Surgery Scheduling) [address], [place], [address], 05/14/2024 03:37:38 05/13/20 24 05/13/2024 COMP. METAB OLIC PANEL (14) protein, total 8.2 gm/dL 6.4-8. [address] [facility] (Surgery Scheduling) [address], [place], [address], 05/14/2024 03:37:38 05/13/20 24 05/13/2024 COMP. METAB OLIC PANEL (14) albumin 4.3 gm/dL 3.4-5. [address] [facility] (Surgery Scheduling) [address], [place], [address], 05/14/2024 03:37:38 05/13/20 24 05/13/2024 COMP. METAB OLIC PANEL (14) bilirubin, total 0.5 mg/dL 0.2-1. [address] [facility] (Surgery Scheduling) [address], [place], [address], 05/14/2024 03:37:38 05/13/20 24 05/13/2024 COMP. METAB OLIC PANEL (14) alkaline phosphatase 101 U/L 40-[address] [facility] (Surgery Scheduling) [address], [place], [address], 05/14/2024 03:37:38 05/13/20 24 05/13/2024 COMP. METAB OLIC PANEL (14) AST (SGOT) 32 U/L 5-[address] [facility] (Surgery Scheduling) [address], [place], [address], 05/14/2024 03:37:38 05/13/20 24 05/13/2024 COMP. METAB OLIC PANEL (14) ALT (SGPT) 42 U/L 0-[address] [facility] (Surgery Scheduling) [address], [place], [address], 05/14/2024 03:37:38 05/13/20 24 05/13/2024 HEMOG LOBIN A1C hemoglobin A1C 5.0 % <5.7 AVERA GE GLUCO SE MG/DL BLOOD 97 mg/dL HbA1c Inter preta tion: Cristal l: < 5.7% Pre-d iabet es: 5.7-6 .4% Diabe soila: Equal to or great er than 6.5% Test resul ts diagn ostic of diabe soila shoul d be repea irvin for c onfir matio n. Treat ment targe t value s recom bassam d by ADA and other clini ca l organ izati ons shoul d be used to evalu ate metab olic contr ol in patie nts. This test shoul d not repla ce gluco se testi ng for patie nts wi th Type 1 diabe soila, pedia tric patie nts, or pregn ant women . False ly low HbA1c resul ts may be obser radha in patie nts with c linic al condi tions that short en eryth rocyt e life span or dec rease mean eryth rocyt e age such as the prese nce of unsta ble hemog lobin varia nts, eleva irvin hemog lobin F level or other ca uses of hemol ytic anemi a. HbA1c may not accur ately refle ct glyce juany contr ol when clini christie condi tions that affec t eryth r ocyte survi christophe are prese nt. Sever e Iron defic iency anemi a m ay yield false ly high resul ts. Hemog lobin A1c assay shoul d not be used to diagn ose or monit or diabe soila in patie nts with mor beth , gilberto t blood trans fusio n, chron ic kidne y or anne er disea se. This metho d may yield false ly low resul ts when hemog lobin (HbF) excee ds 5% in the speci men. The Abbot t Alini ty assay for the measu remen t of HbA1c is a N ation al Glyco hemog lobin Stand ardiz ation Progr am (NGSP ) certi fied metho d. Not Available [facility] ([facility] Scheduling) [address], [place], [address], 05/14/2024 03:37:39 05/13/20 24 05/13/2024 CBC WITH DIFFE RENTI AL/PL ATELE T WBC 10.5 x10e9 /L 4.0-[address] [facility] ([facility]gery Scheduling) [address], [place], [address], 05/14/2024 03:37:39 05/13/20 24 05/13/2024 CBC WITH DIFFE RENTI AL/PL ATELE T RBC 4.99 x10e1 2/L 4.30-[address] [facility] ([facility] Scheduling) [address], [place], [address], 05/14/2024 03:37:39 05/13/20 24 05/13/2024 CBC WITH DIFFE RENTI AL/PL ATELE T hemoglobin 13.8 g/dL 13.3-[address] [facility] ([facility] Scheduling) [address], [place], [address], 05/14/2024 03:37:39 05/13/20 24 05/13/2024 CBC WITH DIFFE RENTI AL/PL ATELE T hematocrit 44.5 % 38.7-[address] [facility] ([facility] Scheduling) [address], [place], [address], 05/14/2024 03:37:39 05/13/20 24 05/13/2024 CBC WITH DIFFE RENTI AL/PL ATELE T MCV 89.2 fL 80.0-[address] [facility] ([facility] Scheduling) [address], [place], [address], 05/14/2024 03:37:39 05/13/20 24 05/13/2024 CBC WITH DIFFE RENTI AL/PL ATELE T MCH 27.7 pg 26.7-[address] [facility] ([facility] Scheduling) [address], [place], [address], 05/14/2024 03:37:39 05/13/20 24 05/13/2024 CBC WITH DIFFE RENTI AL/PL ATELE T MCHC 31.0 g/dL 31.7-3 6.3 below low normal Not Available [facility] ([facility] Scheduling) [address], [place], [address], 05/14/2024 03:37:39 05/13/20 24 05/13/2024 CBC WITH DIFFE RENTI AL/PL ATELE T RDW 13.1 % 11.3-[address] [facility] ([facility] Sched[facility]) [address], [place], [address], 05/14/2024 03:37:39 05/13/20 24 05/13/2024 CBC WITH DIFFE RENTI AL/PL ATELE T platelets 338 x10e9 /L 150-42 0 MPV (CS) 9.6 fL 7.8-[address] [facility] ([facility] Scheduling) [address], [place], [address], 05/14/2024 03:37:39 05/13/20 24 05/13/2024 CBC WITH DIFFE RENTI AL/PL ATELE T neutrophils 58.8 % 41.0-[address] [facility] ([facility] Scheduling) [address], [place], [address], 05/14/2024 03:37:39 05/13/20 24 05/13/2024 CBC WITH DIFFE RENTI AL/PL ATELE T lymphs 26.7 % 17.0-[address] [facility] ([facility] Scheduling) [address], [place], [address], 05/14/2024 03:37:39 05/13/20 24 05/13/2024 CBC WITH DIFFE RENTI AL/PL ATELE T monocytes 9.0 % 3.0-[address] [facility] ([facility] Scheduling) [address], [place], [address], 05/14/2024 03:37:39 05/13/20 24 05/13/2024 CBC WITH DIFFE RENTI AL/PL ATELE T eos 4.8 % 0.0-7. [address] [facility] ([facility] Scheduling) [address], [place], [address], 05/14/2024 03:37:39 05/13/20 24 05/13/2024 CBC WITH DIFFE RENTI AL/PL ATELE T basos 0.4 % 0.0-1. [address] [facility] ([facility] Sched[facility]) [address], [place], [address], 05/14/2024 03:37:39 05/13/20 24 05/13/2024 CBC WITH DIFFE RENTI AL/PL ATELE T neutrophils (absolute) 6.19 x10e9 /L 1.60-[address] [facility] ([facility] Sched[facility]) [address], [place], [address], 05/14/2024 03:37:39 05/13/20 24 05/13/2024 CBC WITH DIFFE RENTI AL/PL ATELE T lymphs (absolute) 2.80 x10e9 /L 1.00-[address] [facility] ([facility] Scheduling) [address], [place], [address], 05/14/2024 03:37:39 05/13/20 24 05/13/2024 CBC WITH DIFFE RENTI AL/PL ATELE T monocytes(ab solute) 0.94 x10e9 /L 0.15-[address] [facility] ([facility] Sched[facility]) [address], [place], [address], 05/14/2024 03:37:39 05/13/20 24 05/13/2024 CBC WITH DIFFE RENTI AL/PL ATELE T eos (absolute) 0.50 x10e9 /L 0.00-[address] [facility] ([facility] Scheduling) [address], [place], [address], 05/14/2024 03:37:39 05/13/20 24 05/13/2024 CBC WITH DIFFE RENTI AL/PL ATELE T baso (absolute) 0.04 x10e9 /L 0.00-[address] [facility] ([facility] Scheduling) [address], [place], [address], 05/14/2024 03:37:39 05/13/20 24 05/13/2024 CBC WITH DIFFE RENTI AL/PL ATELE T immature granulocytes 0.3 % 0.0-1. [address] [facility] ([facility]gery Scheduling) [address], [place], [address], 05/14/2024 03:37:39 05/13/20 24 05/13/2024 PROST ATE-S PECIF IC AG prostate specific Ag 0.58 NG/mL <=4.00 PSA value s will vary depen anand on testi ng proce dure used. R esult s are not fan rable acros s diffe rent metho ds. PSA christophe ues obtai gabe by [facility] (not U) use the Abbot t Alini ty immun oassa y metho d. Not Available [facility] ([facility] Scheduling) [address], [place], [address], 05/14/2024 03:37:40 12/13/19 24 12/12/2023 MRI, brain , w/ contr ast No observ ation record ed. [facility] [address], [place], [address], 12/23/2023 11:36:04 04/03/20 24 03/05/2024 CT, angio gram, head + neck, w/ contr ast No observ ation record ed. [email or web address] Not Available 2023 10:29:01 05/19/20 24 04/15/2024 imagi ng/di agnos tic resul t No observ ation record ed. [email or web address] Not Available 2023 21:09:26 09/03/19 25 06/30/2024 , [facility] ardio gram No observ ation record ed. [email or web address] Not Available 2024 19:59:41 Result Notes None recorded. Problems Name Problem SNOMED Code Status Onset Date Resolution Date Notes Provider Name and Address Organization Details Recorded Time Hyperlipidemia 92753928 Active Edchristoph Mccall PA-C Attn: Manav barbosa,[address] [facility], [place], [address], [place] [facility] 6 10:55:09 Obstructive sleep apnea syndrome 26305547 Active 2024 Alexis Laura MD Attn: Manav barbosa,[address] [facility], [place], [address], [place] 5 22:26:53 Toothache 07949931 Active 2024 Alexis Laura MD Attn: Manav barbosa[address] [facility], [place], [place], [address] [place] [address] 2, [place] [facility] 5 22:26:54 Hyperglycemia 38981254 Active Johnnie Mccall PA-C Attn: Accountin g,[address] [facility], [place], [address] [place] [address] 2, [place] [facility] 6 10:55:09 Obesity 689158828 Active Johnnie Mccall PA-C Attn: Accountin g,[address] [facility], [place], [place], [address] [place] [address] 2, [place] [facility] 6 10:55:09 Upper respiratory infection 84124627 Active Johnnie Mccall PA-C Attn: Accountin g,[address] [facility], [place], [address] [place] [address] 2, [place] [facility] 5 14:09:56 Tremor 01042475 Active Johnnie Mccall PA-C Attn: Accountin g,[address] [facility], [place], [address] [place] [address] 2, [place] [facility] 6 10:55:09 Headache 50477280 Active Johnnie Mccall PA-C Attn: Accountin g,[address] [facility], [place], [address] [place] [address] 2, [place] [facility] 6 10:55:09 Gastroesophage al reflux disease 027227464 Active Johnnie Mccall PA-C Attn: Accountin g,[address] [facility], [place], [address] [place] [address] 2, [place] [facility] 6 10:55:09 Anxiety 09949146 Active Johnnie Mccall PA-C Attn: Accountin g,[address] [facility], [place], [address] [place] [address] 2, [place] [facility] 6 10:55:09 Insomnia 206779730 Active Johnnie Mccall PA-C Attn: Accountin g,[address] [facility], [place], [address], [place] [facility] 6 10:55:09 Vitamin D deficiency 89509251 Active Johnnie Mccall PA-C Attn: Accountin g,[address] [facility], [place], [address], [place] [facility] 6 10:55:09 Uric acid level above reference range 15539921 Active Johnnie Mccall PA-C Attn: Accountin g,[address] [facility], [place], [address], [place] [facility] 6 10:55:09 Chest pain 57170477 Active Johnnie Mccall PA-C Attn: Accountin g,[address] [facility], [place], [address], [place] [facility] 6 10:55:09 Plantar fasciitis [id number] Active Johnnie Mccall PA-C Attn: Accountin g,[address] [facility], [place], [address], [place] [facility] 6 10:55:09 Constipation 16632593 Active Johnnie Mccall PA-C Attn: Accountin g,[address] [facility], [place], [address], [place] [facility] 6 10:55:09 Otitis media 39560728 Active Johnnie Mccall PA-C Attn: Accountin g,[address] [facility], [place], [address], [place] [facility] 6 13:19:31 Sinusitis 27008381 Active 2016 Johnnie Mccall PA-C Attn: Accountin g,[address] [facility], [place], [address], [place] [facility] 7 12:28:21 Liver enzymes level above reference range 776425547 Active 2016 Johnnie Mccall PA-C Attn: Accountin g,[address] [place], [address], [place] [facility] 7 12:33:59 Allergic rhinitis 04279577 Active 2016 Johnnie Mccall PA-C Attn: Accountin g,[address] [facility] [facility], [place], [address], [place] 7 11:36:31 Type 2 diabetes mellitus 06082138 Active 2016 Johnnie Mccall PA-C Attn: Manav barbosa,[address], [place], [address], [facility] - [facility] 7 18:40:42 Problem Notes None recorded. Procedures Surgical History None recorded. Imaging Results Imaging Date Name Status LastModified by Organization Details LastModified Time 12/12/2023 MRI, brain, w/ contrast completed [facility] [address], [place], [address], 12/23/2023 11:36:04 03/05/2024 CT, angiogram, head + neck, w/ contrast completed Information not available 04/12/2024 10:29:01 04/15/2024 imaging/diagnostic result completed Information not available 05/19/2024 21:09:26 06/30/2024 US, echocardiogram completed [facility] Inform ation not available 09/03/2024 19:59:41 Procedure Notes None recorded. Medical Equipment None Reported. Allergies No known drug allergies Medications Name Sig Start Date Stop Date Status Note LastModified by Organization Details LastModified Time Prescriptio n - Change 11/27 completed Not Available Not Available Not Available amoxicillin 500 mg capsule Take 2 capsules every 12 hours by oral route for 10 days. 11/27 completed Not Available Not Available Not Available Colace 100 mg capsule Take 1 capsule twice a day by oral route as needed for 30 days. 11/27 completed Not Available Not Available Not Available atorvastati n 20 mg tablet active Not Available Not Available Not Available pravastatin 40 mg tablet 1 tab po qd AT SUPPER 11/27 completed Not Available Not Available Not Available sumatriptan 100 mg tablet TAKE 1 TABLET BY MOUTH AT ONSET OF HEADACHE MAY REPEAT IN 2 HOURS 11/27 completed Not Available Not Available Not Available hydrocodone 5 mg-acetamin ophen 325 mg tablet 11/27 completed Not Available Not Available Not Available propranolol ER 60 mg capsule,24 hr,extended release active Not Available Not Available Not Available topiramate 25 mg tablet 1 tabpo qhs 09/03 completed Not Available Not Available Not Available ciprofloxac in 500 mg tablet Take 1 tablet every 12 hours by oral route for 10 days. 11/27 completed Not Available Not Available Not Available amantadine HCl 100 mg capsule 11/27 completed Not Available Not Available Not Available doxycycline monohydrate 100 mg capsule TAKE 1 CAPSULE TWICE A DAY THE FIRST DAY AND THEN 1 A DAY UNTIL GONE 11/27 completed Not Available Not Available Not Available nortriptyli ne 10 mg capsule 11/27 completed Not Available Not Available Not Available metformin 1,000 mg tablet Take 1 tablet twice a day by oral route. active Not Available Not Available No t Available magnesium citrate oral solution Take 295 mL as needed by oral route as needed for 1 day. 11/27 completed Not Available Not Available Not Available propranolol 20 mg tablet active Not Available Not Available Not Available fluticasone propionate 50 mcg/actuati on nasal spray,suspe nsion [place] 1 spray twice a day by intranasa l route for 30 days. 11/27 completed Not Available Not Available Not Available loratadine 10 mg tablet Take 1 tablet every day by oral route for 30 days. 11/27 completed Not Available Not Available Not Available naproxen 500 mg tablet Take 1 tablet twice a day by oral route with meals for 30 days. 11/27 completed Not Available Not Available Not Available amoxicillin 875 mg-potassiu m clavulanate 125 mg tablet TAKE 1 TABLET BY MOUTH TWICE DAILY active Not Available Not Available No t Available ezetimibe 10 mg tablet Take 1 tablet every day by oral route for 30 days. 11/27 completed Not Available Not Available Not Available fenofibrate 160 mg tablet Take 1 tablet every day by oral route in the morning for 30 days. 11/27 completed Not Available Not Available Not Available BD Ultra-Fine Short Pen Needle 31 gauge x 5/16 USE TO INJECT INSULIN DAILY 2024 active Not Available Not Available Not Avai lable Januvia 100 mg tablet TAKE 1 TABLET DAILY 2024 active Not Available Not Available Not Avai lable Humalog KwikPen (U-100) Insulin 100 unit/mL subcutaneou s Inject 18 units as needed by subcutane ous route as needed for 1 day. 11/27 completed Not Available Not Available Not Available Brijesh Austin U-300 Insulin 300 unit/mL (1.5 mL) subcutaneou s pen active Not Available Not Available Not Available [facility] ODT 75 mg disintegrat ing tablet DISSOLVE 1 TABLET ON OR UNDER THE TONGUE ONCE A DAY NEEDED FOR MIGRAINE. MAX 1 TABLET IN 24HRS active Not Available Not Available No t Available Ozempic 1 mg/dose (4 mg/3 mL) subcutaneou s pen injector INJECT 1 MG WEEKLY active Not Available Not Available No t Available Ozempic 2 mg/dose (8 mg/3 mL) subcutaneou s pen injector Inject 2 mg every week by subcutane ous route. 2024 active Not Available Not Available Not Avai lable Ozempic 0.25 mg or 0.5 mg (2 mg/3 mL) subcutaneou s pen injector INJECT 0.25MG UNDER THE SKIN WEEKLY FOR 4 WEEKS, THEN 0.5MG FOR 4 WEEKS 11/27 completed Not Available Not Available Not Available Vitals Date Recorded Body height Body mass index (BMI) Body weight Heart rate Body temperature Oxygen saturation Oxygen saturation in Arterial blood by Pulse oximetry Systolic blood pressure Diastolic blood pressure Provider Name and Address Organization Details Last Updated DateTime 4 182.88 cm 42.4 kg/m2 026561. 69 g 87 /min 98.9 [degF] 98 % 98 % 122 mm[Hg] 80 mm[Hg] Valorie Childers [place] - [facility] 4 10:10:22 Date Recorded Body height Body mass index (BMI) Body weight Heart rate Oxygen saturation Oxygen saturation in Arterial blood by Pulse oximetry Systolic blood pressure Diastolic blood pressure Provider Name and Address Organization Details Last Updated DateTime 4 182.88 cm 41.7 kg/m2 997314. 29 g 88 /min 98 % 98 % 122 mm[Hg] 76 mm[Hg] Gurwinder Mccall [place] - [facility] 4 10:35:48 Date Recorded Body height Body mass index (BMI) Body weight Oxygen saturation Oxygen saturation in Arterial blood by Pulse oximetry Heart rate Systolic blood pressure Diastolic blood pressure Provider Name and Address Organization Details Last Updated DateTime 5 182.88 cm 43.3 kg/m2 107001. 33 g 96 % 96 % 102 /min 128 mm[Hg] 74 mm[Hg] Meme Iyer MA [facility] 5 15:45:08 Date Recorded Body height Body mass index (BMI) Body weight Oxygen saturation Oxygen saturation in Arterial blood by Pulse oximetry Heart rate Body temperature Systolic blood pressure Diastolic blood pressure Provider Name and Address Organization Details Last Updated DateTime 7 180.34 cm 40.4 kg/m2 945300. 79 g 97 % 97 % 90 /min 99.2 [degF] 112 mm[Hg] 80 mm[Hg] Anupama Huff MA [facility] 7 16:26:04 Social History Question Answer Notes LastModified by Organizat ion Details LastModified Time Tobacco Smoking Status Former Smoker Quit 2014 Valorie Childers MA [facility], [place] - [facility] 11/28/2023 10:02:08 Do You Have An Advance Directive? No Information not available 11/26/2014 What Is Your Level Of Alcohol Consumption? Moderate Information not available 11/26/2014 Are You Blind Or Do You Have Difficulty Seeing? No Information not available 11/26/2014 What Is Your Level Of Caffeine Consumption? Moderate Information not available 11/26/2014 How Much Tobacco Do You Chew? None Information not available 11/26/2014 In The 14 Days Before Symptom Onset, Have You Had Close Contact With A Laboratory-confir med COVID-19 While That Case Was Ill? No Information not available 09/03/2024 In The 14 Days Before Symptom Onset, Have You Had Close Contact With A Person Who Is Under Investigation For COVID-19 While That Person Was Ill? No Information not available 09/03/2024 Have You Been To An Area Known To Be High Risk For COVID-19? No Information not available 09/03/2024 Are You Deaf Or Do You Have Serious Difficulty Hearing? No Information not available 11/26/2014 What Type Of Diet Are You Following? REGULAR Information not available 11/26/2014 Education 2 Year College Information not available 11/26/2014 What Is Your Occupation? Sales Information not available 11/26/2014 Are There Any Guns Present In Your Home? Yes Information not available 11/26/2014 Hard Of Hearing Or Deaf In One Or Both Ears? No Information not available 11/26/2014 Legally Blind In One Or Both Eyes? No Information no t available 11/26/2014 Marital Status Single Informatio n not available 11/26/2014 What Was The Date Of Your Most Recent Tobacco Screening? 09/03/2024 Information not available 09/03/2024 Performs Monthly Self-breast Exam? Yes Information no t available 11/26/2014 What Is Your Relationship Status? Single apaytonma Information not available 11/28/2023 Seat Belts Used Routinely Yes Information not available 11/26/2014 Smoke Alarm In Home Yes Information not available 11/26/2014 How Much Tobacco Do You Smoke? No Information not available 11/26/2014 General Stress Level High Information not available 11/26/2014 Do You Use Any Illicit Or Recreational Drugs? No Information not available 09/03/2024 Do You Use Sunscreen Routinely? No Information not available 11/26/2014 Has Tobacco Cessation Counseling Been Provided? Yes Information not available 09/03/2024 On What Date Was Tobacco Cessation Counseling Provided? 09/03/2024 Information not available 09/03/2024 Do You Or Have You Ever Used Any Other Forms Of Tobacco Or Nicotine? No Information not available 09/03/2024 Sex: Male Functional Status Question Answer Note LastModified by Organization D etails LastModified Time Do you have difficulty walking or climbing stairs? Yes Information not available 11/26/2014 Do you have difficulty doing errands alone? No Information not available 11/26/2014 Do you have difficulty dressing or bathing? No Information not available 11/26/2014 What is your exercise level? None Information not available 11/26/2014 Mental Status Question Answer Note LastModified by Organizat ion Details LastModified Time Do you have difficulty concentrating, remembering or making decisions? Yes feels like he has short term memory loss Information not available 11/26/2014 Family History Relationship Description Onset Age of this Age Resolved Age Notes LastModified by Organization Details LastModified Time Father Heart disease Not available 2014 10:19:49 Father Hypertensive disorder Not available 2014 10:19:49 Mother Diabetes mellitus Not available 2014 10:19:49 Maternal Aunt Diabetes mellitus Not available 2014 10:19:49 Medical History Condition Response Coronary Artery Disease N Other N High Blood Pressure N Atrial Fibrillation N Kidney or Bladder Problems N Thyroid Problems N GI Problems N Depression N COPD N Blood Clots N Skin Problems N Anemia N Heart Attack (NM) N Anxiety Disorder N Diabetes Y Muscle, Joint, or Bone Problems N Seizures/Epilepsy N Acid Reflux (GERD) N Cancer N Stroke N Asthma N Allergies N High Cholesterol N Hepatitis N Liver Disease N Headaches N Heart Failure N Osteoporosis N Immunizations Vaccine Type Date Status Note Provider Nam e and Address Organization Details Recorded Time COVID-19, mRNA, LNP-S, PF, 30 mcg/0.3 mL dose 01/09/2021 completed Gurwinder Mccall [place], [place] [facility] 04/06/2024 09:24:56 COVID-19, mRNA, LNP-S, PF, 30 mcg/0.3 mL dose 01/30/2021 EVERT Garcia, [place] [facility] 04/06/2024 09:24:56 COVID-19, mRNA, LNP-S, PF, 30 mcg/0.3 mL dose, isabella-sucrose 09/15/2021 EVERT [place], [place] [facility] 04/06/2024 09:24:56 Past Encounters Encounter ID Performer Location Encounter Start Date Encounter Closed Date Diagnosis/Indication Diagnosis SNOMED-CT Code Diagnosis ICD10 Code Diagnosis Note [id number] [facility] (Adult Med) [address] [place] [phone] 11/26/2014 09:43:29 11/26/2014 15:40:46 Hyperglycemia 37567665 Hyperlipidemia 24206992 Obesity 878516865 Upper resp iratory infection 37528748 Tremor 35167626 Headache 27872571 Gastroesop hageal reflux disease 834808380 Anxiety 71487932 Insomnia 588472351 Vitamin D deficiency 17733231 Uric acid level above reference range 69608536 [id number] [facility] (Adult Med) [address] [place] [id number] 04/06/2015 09:32:24 04/06/2015 10:11:26 Headache 43220066 Hyperglycemia 87795497 Hyperlipidemia 23657575 Uric acid level above reference range 28124356 Gastroesop hageal reflux disease 861882459 Anxiety 86192291 Insomnia 041343338 Obesity 013007068 Vitamin D deficiency 34554656 [id number] [facility] ([facility]ult Med) [address] [place] [id number] 0 06/24/2015 12:25:58 06/24/2015 12:46:13 Anxiety 82319881 F41.9 Gastroesop hageal reflux disease 107087273 K21.9 Headache 75980469 R51 Hyperlipidemia 15249153 E78.5 Uric acid level above reference range 70710489 E79.0 Insomnia 921981791 G47.0 0 Obesity 475326320 E66.9 Vitamin D deficiency 347 13807 E55.9 [id number] [facility] (Adult Med) [address] [place] [id number] 0 12/23/2015 10:22:37 12/23/2015 11:04:54 Chest pain 41660134 R07.9 2 months , lasts 2 hours , baby aspirin may be helping , occ sob , no sweating . Plantar fasciitis 498363 003 M72.2 3 weeks Constipation 50010020 K5 9.00 Otitis media 16647493 H6 6.91 [id number] [facility] ([facility]ult Med) [address] [place] [id number] 0 02/21/2016 09:58:43 02/21/2016 10:57:34 Anxiety 28012402 F41.9 Chest pain 19000351 R07. 9 2 months , lasts 2 hours , baby aspirin may be helping , occ sob , no sweating . Constipation 98689949 K5 9.00 Gastroesop hageal reflux disease 307115282 K21.9 Headache 88350554 R51 Hyperglycemia 87840454 R 73.9 Hyperlipidemia 23729922 E78.5 Uric acid level above reference range 58701781 E79.0 Insomnia 548503092 G47.0 0 Obesity 238427801 E66.9 Plantar fasciitis 676627 003 M72.2 3 weeks Tremor 66467821 R25.1 Vitamin D deficiency 347 69897 E55.9 [id number] [facility] (Adult Med) [address] [place] [id number] 0 10/08/2016 11:57:28 10/08/2016 12:37:07 Obesity 648866709 E66.9 Sinusitis 10023872 J32.9 Hyperlipidemia 00956314 E78.5 Liver enzy mes level above reference range 694149716 R74.8 [id number] [facility] (Adult Med) [address] [place] [id number] 12/21/2016 10:44:04 12/21/2016 13:21:33 Headache 05319680 R51 Hyperlipidemia 19387159 E78.5 Insomnia 601627886 G47.0 0 Gastroesop hageal reflux disease 394647929 K21.9 Uric acid level above reference range 14501394 E79.0 Allergic rhinitis 477288 04 J30.9 [id number] [facility] (Adult Med) [address] [place] [id number] 06/14/2017 16:10:47 06/17/2017 09:26:48 Obesity 860021163 E66.9 Hyperlipidemia 13601672 E78.5 [id number] [facility] (Adult Med) [address] [place] [id number] 0 06/17/2017 13:21:54 06/17/2017 13:37:07 Type 2 diabetes mellitus 35988218 E11.9 Hyperglycemia 23369647 R 73.9 [id number] Alexis Laura MD [facility] [address] [place] [address] 11/28/2023 09:12:27 11/28/2023 10:47:06 Headache 38624516 R51.9 Hyperlipidemia 53612281 E78.5 Type 2 geoffrey betes mellitus 51838881 E11.9 Obesity 227879376 E66.9 [id number] Alexis Laura MD [facility] [place] [address] [place] [address] 04/06/2024 10:13:24 04/06/2024 11:29:45 Hyperlipidemia 09884421 E78.5 Essential hypertension 53113863 I10 Type 2 geoffrey betes mellitus 22453782 E11.9 Screening for malignant neoplasm of prostate 476644965 Z12.5 [id number] Alexis Laura MD [facility] [place] [address] [place] [place] [address] 09/03/2024 15:18:05 09/03/2024 16:43:17 Body mass index 40+ - severely obese 879043212 Z68.41 Morbid obesity 785489986 E66.01 Hyperlipidemia 83660634 E78.5 Type 2 geoffrey betes mellitus 91586869 E11.9 Toothache 93130035 K08.8 9 Obstructiv e sleep apnea syndrome 15151077 G47.33 Health Concerns Section Related Observation LastModified by Organization Detai ls LastModified Time None Recorded Concern Status LastModified by Organization Details LastModified Time None Recorded Advance Directives Directive N: Payers Encounter Date Sequence Insurance Name Policy Number Policy Harris Covered Member ID Harris Member ID Guarantor Name 06/14/2017 1 [employer] [id number] Billy Butler [id number] Billy Butler 06/17/2017 1 [employer] [id number] Billy Butler [id number] Billy Butler 11/28/2023 1 [employer] [id number] Billy Butler [id number] Billy Butler 04/06/2024 1 [facility]: (PPO) [id number] Billy Butler [id number] Billy Butler 09/03/2024 1 [facility]: (PPO) [id number] Billy Butler [id number] Billy Butler Notes Date Note Type Note Provider Name and Address Organization Details Recorded Time 06/14/2017 text/html polyuria Johnnie Mccall PA-C Attn: [address] [facility], [place], [address], [facility] [place] 06/14/2017 17:19:25 11/28/2023 text/html History of hyperlipidemia apnea obesity and diabetes has had no trouble with his blood sugars no polyphagia polydipsia could do better with regards to dietary restrictions of calories hyperlipidemia he does take medication for that and tries to watch a low-fat diet last few months without any history of trauma has been having some dull frontal headaches sometimes they go bitemporal nothing makes better or worse mild to moderate to wake him up at night [id number] analgesics do not seem to help that much no nausea vomiting or visual disturbance Alexis Laura MD Attn: [address] [facility], [place], [address], [facility] 12/01/2023 14:26:32 04/06/2024 text/html 1. Stroke CTA sh ows chronic right frontal lobe infarct and he is following up with Neurology insignificant plaque in the left carotid bifurcation. Hypertension no headache no dizziness blood pressure 122/76. 3. Sleep apnea does not tolerate CPAP. 4. Hyperlipidemia he is trying to be more prudent about a low-fat diet 5. Obesity he is trying to restrict calories Alexis Laura MD Attn: [address],[address] [facility], [place], [address], [facility] 04/25/2024 18:30:42 09/03/2024 text/html diabetes sugars are doing better. He has got a toothache for the past couple of days it is really bothering him can not get into a dentist yet. Dyslipidemia needs blood work he is trying to watch diet. Obesity is settling into getting CPAP and he is not losing weight on current dose of Ozempic Alexis Laura MD Attn: [address]ing,[address] [facility], [place], [address], [facility] 09/27/2024 22:27:15
--- OUTSIDE RECORDS SUMMARY | 2024-10-01 10:59 | XMS_ITS | Patient Health Summary ---
Author Organization [facility] Address [address] [place] [address] Care Team Providers Care Ux Design Manager Name Role Phone Guillermo Laura MD Primary Care Provider [phone] Note from [facility],non-owned Affiliates and Associated Physician Practices is amultiple site organization consisting of ambulatory clinics and hospital sitesin [place], [place], [place] and [place]. This disclosure is being madepursuant to the Care Everywhere program and may not contain all information available regarding this patient. Last updated 18.[facility] Allergies No known active allergies Medications * Be aware that medications may not be up to date on this document. Alwaysverify current medications with the patient. * topiramate (Topamax) 25 MG tablet(Started 02/19/2024) Take 1 (one) tablet by mouth as directed Week 1: 25 mg at bedtime. Week 2: 25 mg twice a day. Week 3: 25 mg AM, 50 mg PM. Week 4: 50 mg twice a day. 3 refills by 02/18/2025 * riboflavin 400 MG capsule(Started 02/19/2024) Take 1 (one) capsule by mouth once daily 6 refills by 02/18/2025 * atorvastatin (Lipitor) 20 MG tablet(Started 10/30/2023) QD * Toujeo SoloStar pen INJECT 40 UNITS UNDER THE SKIN ONCE DAILY * metFORMIN (Glucophage) 1000 MG tablet 1 (one) tablet 2 times daily * Januvia 100 MG tablet Take 1 (one) tablet by mouth once daily * rimegepant (Nurtec ODT) 75 MG tablet(Started 03/02/2024) Take 75 mg by mouth once daily as needed for Migraine 2 refills by 03/02/2025 * propranolol ER 24hr (Inderal LA) 60 MG capsule(Started 06/30/2024) Take 1 (one) capsule by mouth once daily 4 refills by 06/30/2025 * nortriptyline (Pamelor) 10 MG capsule Take 1 (one) capsule by mouth 3 times daily * Ozempic, 1 MG/DOSE, 4 MG/3ML pen(Started 04/28/2024) Inject 1 (one) mg subcutaneously Active Problems No known active problems Social History Tobacco Use Types Packs/Day Years Used Date Smoking Tobacco: Never Assessed Sex and Gender Information Value Date Recorded Sex Assigned at Not on file Gender Identity Not on file Sexual Orientation Not on file Last Filed Vital Signs Vital Sign Reading Time Taken Comments Blood Pressure 125/83 08/13/2024 1:08 PM FUR GLOSSER Pulse 89 08/13/2024 1:08 PM FUR GLOSSER Temperature 36.6 C (97.8 F) 08/13/2024 1:08 PM FUR GLOSSER Respiratory Rate - - Oxygen Saturation 99% 08/13/2024 1:08 PM FUR GLOSSER Inhaled Oxygen Concentration - - Weight 143.8 kg (317 lb) 08/13/2024 1:08 PM FUR GLOSSER Height 182.9 cm (6') 08/13/2024 1:08 PM FUR GLOSSER Body Mass Index 42.99 08/13/2024 1:08 PM FUR GLOSSER Procedures * CT ANGIO BRAIN AND NECK(Performed 03/05/2024) Performed for Cerebrovascular accident (CVA) due to embolism of right carotid artery (HCC) * CREATININE - POCT INTERFACED(Performed 03/05/2024) Results * CT ANGIO BRAIN AND NECK (03/05/2024 9:51 AM CDT) Anatomical Region Laterality Modality Head Computed Tomogra phy 03/05/2024 10:2 2 AM CDT Impressions 03/05/2024 10:29 AM CDT IMPRESSION: 1. Patent carotid and vertebral arteries. CT BRAIN/CT ANGIOGRAM BRAIN: There is a moderate chronic right frontal lobe infarct with encephalomalacia. No CT evidence for acute ischemia, mass or hemorrhage. No extra-axial fluid collection, midline shift or hydrocephalus. Angiographic images reveal bilateral patent and internal carotid arteries. The middle cerebral arteries and branch vessels are patent. No stenosis, occlusion or aneurysm. The anterior cerebral arteries are also widely patent. No stenosis, occlusion or aneurysm. The posterior cerebral arteries are patent. No stenosis, occlusion or aneurysm. There are small but still patent bilateral posterior communicating arteries. Distal vertebral arteries are patent with the left side dominant. The vessels joint to form a normal basilar artery. The major intercranial venous sinuses enhance normally. No abnormal brain parenchymal enhancement. There is fluid throughout the frontal sinuses and mild mucosal thickening in the ethmoid sinuses. IMPRESSION: 1. No acute intracranial vascular findings. 2. Chronic right frontal lobe infarct. > Interpreting Provider: Yojana Ambrose MD on 03/05/2024 10:29 AM Narrative 03/05/2024 10:29 AM CDT PROCEDURE: CT ANGIO BRAIN AND NECK DATE/TIME OF EXAM: 03/05/2024 9:52 AM CLINICAL INFORMATION: None relevant/not provided if blank. 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 TECHNIQUE: CT angiography of the brain and neck was performed without IV contrast followed by IV contrast, including 3D MIPS post processing CTA image reconstruction provided from an independent workstation. Stenosis measurements are based on NASCET criteria. CT dose reduction technique was used, including Automated Exposure Control. CONTRAST: IOPAMIDOL 76 % IV SOLN:80 mL FINDINGS: CTA NECK: The lung apices are clear. The visualized aortic arch is unremarkable. The brachycephalic artery is patent. The right common carotid artery is patent. There is a small insignificant calcified plaque in the proximal right internal carotid artery without any measurable stenosis. The more distal internal carotid and external carotid are widely patent. The left common carotid artery is widely patent. There is an insignificant calcified plaque in the left carotid bifurcation. The internal and external carotid arteries are widely patent. Both vertebral arteries are patent with the left side slightly dominant. The vessels join to form a normal basilar artery. Mild chronic degenerative changes in the lower cervical spine. Procedure Note Yojana Ambrose MD - 03/05/2024 PROCEDURE: CT ANGIO BRAIN AND NECK DATE/TIME OF EXAM: 03/05/2024 9:52 AM CLINICAL INFORMATION: None relevant/not provided if blank. Indication: I63.131: Cerebral infarction due to embolism of rightcarotid artery (HCC) Additional History: COMPARISON: None. TECHNIQUE: CT angiography of the brain and neck was performed without IV contrast followed by IV contrast, including 3D MIPS post processing CTA image reconstruction provided from an independent workstation. Stenosis measurements are based on NASCET criteria. CT dose reduction technique was used, including Automated ExposureControl. CONTRAST: IOPAMIDOL 76 % IV SOLN:80 mL FINDINGS: CTA NECK: The lung apices are clear. The visualized aortic arch is unremarkable. The brachycephalic artery is patent. The right common carotid artery is patent. There is a small insignificant calcified plaque in the proximal right internal carotid artery without any measurable stenosis. The more distal internal carotid and external carotid are widely patent. The left common carotid artery is widely patent. There is aninsignificant calcified plaque in the left carotid bifurcation. The internal and external carotid arteries are widely patent. Both vertebral arteries are patent with the left side slightly dominant. The vessels join to form a normal basilar artery. Mild chronic degenerative changes in the lower cervical spine. IMPRESSION: 1. Patent carotid and vertebral arteries. CT BRAIN/CT ANGIOGRAM BRAIN: There is a moderate chronic right frontal lobe infarct with encephalomalacia. No CT evidence for acute ischemia, mass or hemorrhage. No extra-axial fluid collection, midline shift or hydrocephalus. Angiographic images reveal bilateral patent and internal carotidarteries. The middle cerebral arteries and branch vessels are patent. Nostenosis, occlusion or aneurysm. The anterior cerebral arteries are also widely patent. No stenosis, occlusion or aneurysm. The posterior cerebral arteries are patent. No stenosis, occlusion or aneurysm. There are small but still patent bilateral posterior communicating arteries. Distal vertebral arteries are patent with the left side dominant. The vessels joint to form a normal basilar artery. The major intercranial venous sinuses enhance normally. No abnormalbrain parenchymal enhancement. There is fluid throughout the frontal sinuses and mild mucosalthickening in the ethmoid sinuses. IMPRESSION: 1. No acute intracranial vascular findings. 2. Chronic right frontal lobe infarct. > Interpreting Provider: Yojana Ambrose MD on 03/05/2024 10:29 AM Noah Maxwell MD CT ORDERABLES * (ABNORMAL) CREATININE - POCT INTERFACED (03/05/2024 9:21 AM CDT) Creatinine POCT 0.54(L) 0.70 - 1.20 mg/dL 03/05/2024 9:32 AM CDT [facility] eGFR >90 >=90 mL/min/1.7 3 m2 03/05/2024 9:32 AM CDT [facility] Blood BLOOD SPECIMEN / Unknown 03/05/2024 9:21 AM CDT 03/05/2024 9:32 AM CDT Noah Maxwell MD LAB - POINT OF CARE ORDERABLES [facility] [address] [place] [address] Care Teams Ux Design Manager Relationship Specialty Start Date End Date Guillermo Laura MD [address] [place] [id number] PCP - General Internal Medicine 02/19/24
[2024-10-01 11:14] LABS: Basophils Percent Auto 0.4 % (0.2-1.2); Eosinophils Absolute Auto 0.4 K/mm3 (0-0.3); Eosinophils Percent Auto 4.3 % (0-4.4); Hematocrit 42.6 % (42.0-52.0); Hemoglobin 13.4 g/dL (14.0-18.0); Immature Granulocyte Absolute 0.02 K/mm3 (0.00-0.031); Immature Granulocyte Percent A 0.2 % (0-0.5); Lymphocytes Absolute Auto 3.24 K/mm3 (0.9-3.2); Lymphocytes Percent Auto 32.4 % (18.3-44.2); Mean Corpuscular HGB Conc 31.5 g/dl (32-36); Mean Corpuscular Hemoglobin 28.3 pg (26-34); Mean Corpuscular Volume 90.1 fl (80-100); Mean Platelet Volume 9.1 fl (7.4-10.4); Monocytes Absolute Auto 0.9 K/mm3 (0.1-0.6); Monocytes Percent Auto 8.5 % (2.6-8.5); Neutrophils Absolute Auto 5.4 K/mm3 (1.3-6.7); Neutrophils Percent Auto 54.2 % (45.5-73.1); Platelet Count Result 344 k/mm3 (150-375); Red Blood Count 4.73 M/mm3 (4.6-6.20); Red Cell Distribution Width 12.6 % (11.5-14.5)
[2024-10-01 11:22] LABS: Hemoglobin A1C 5.5 % (<5.7)
[2024-10-01 11:26] LABS: Alanine Aminotransferase 45 U/L (6-50); Albumin Level 4.2 g/dL (3.5-5.1); Alkaline Phosphatase 89 U/L (38-126); Anion Gap 9 mmol/L (4-12); Aspartate Amino Transferase 36 U/L (17-59); Bilirubin,Total 0.7 mg/dL (0.2-1.3); Blood Urea Nitrogen 12 mg/dL (9-20); Calcium 9.3 mg/dL (8.4-10.2); Carbon Dioxide 28 mmol/L (22-30); Chloride 103 mmol/L (98-107); Cholesterol 119 mg/dL (0-200); Estimated Glomerular Filt Rate > 60; Glucose 82 mg/dL (65-110); HDL Direct 27 mg/dL; Potassium 4.4 mmol/L (3.4-5.0); Sodium 140 mmol/L (137-145); Triglycerides 98 mg/dL (<150)
[2024-10-01 11:37] LABS: LDL Cholesterol Direct 69 mg/dL
[2024-10-01 11:55] LABS: MALB Creatinine Ratio < 10.5 mg/g (0-30); Microalbumin Urine Random < 6.0 mg/L (0-16.7)
== END 2024-10-01 10:41 | disposition home or self-care (01) ==
LOC: ANHLAB 10:43
PROVIDERS: PCP Internal Medicine; Visit Provider Internal Medicine
DX: E78.5 Hyperlipidemia, unspecified (principal); E11.9 Type 2 diabetes mellitus without complications
CPT/HCPCS: 36415; 80053; 80061; 82043; 83036; 85025

== ENCOUNTER 2025-02-04 08:04 | Outpatient (CLI) | payer BC, SELFPAY ==
--- OUTSIDE RECORDS SUMMARY | 2025-02-04 08:12 | XMS_ITS | Clinical Summary ---
Author Organization [facility] Address [address] [place] [address] Care Team Providers Care Making Machine Operator Name Role Phone Unavailable Primary Care Provider [...]
--- OUTSIDE RECORDS SUMMARY | 2025-02-04 08:12 | XMS_ITS | Continuity of Care Document ---
Author Organization [facility] Address [address] [place] [address] Phone Care Team Providers Care Silk Brusher Name Role Phone No Information Unavailable Unavailable [...] Diagnoses Date Provider Providers Copied on Encounter [facility], [address], [place], [place], [id number], [place] tel:[phone] No Information 0 No Information Prevent E&m Estab Pt; 40-64 Yr [facility], [address], [place], [place], [id number], [place] tel:[phone] [place] EXAM, GENERAL, ROUTINE 3 Kasi Simpson. [address], [place], [place], [id number], [place]. tel:[phone] Referring Provider: Calvin Villaseñor, [address], [place], [address] . tel:[phone] Prevent E&m Estab Pt; 40-64 Yr [facility], [address], [place], [place], [id number], [place] tel:[phone] [place] [facility] EXAM, GENERAL, ROUTINE 2 Kasi Simpson. [address], [id number], [place]. tel:[phone] Referring Provider: Calvin Villaseñor, [address], [place], [address] . tel:[phone] Offic/outpt E&m Estab Low-mod [facility], [address], [place], [place], [id number], [place] tel:[phone] [place] [facility] PAIN, KNEEBURSITIS, HIP 1 Kasi Simpson. [address], [place], [place], [id number], [place]. tel:[phone] Referring Provider: [place], [address] . tel:[phone] Offic/outpt E&m Estab Mod-hi 2 [facility], [address], [place], [place], [id number], [place] tel:[phone] [place] [facility] HEADACHESPRAIN, KNEE, MEDIAL COLLATERAL Oct- 0 Kasi Simpson. [address], [place], [place], [id number], [place]. tel:[phone] Referring Provider: Calvin Villaseñor, [address], [place], [address] . tel:[phone] Offic/outpt E&m [facility], [address], [place], [place], [id number], [place] tel:[phone] [place] [facility] PAIN, THORACICPAIN, WRISTPAIN, HANDCAULIFLOWER EAR Dec-1 0-200 9 Kasi Simpson. [address], [place], [place], [id number], [place]. tel:[phone] Referring Provider: Calvin Villaseñor, [address], [place], [address] . tel:[phone] [facility], [address], [place], [place], [id number], [place] tel:[phone] [place] [facility] EXAM, GENERAL, ROUTINE Nov-1 0-200 9 Kasi Simpson. [address], [place], [place], [id number], [place]. tel:[phone] Referring Provider: Calvin Villaseñor, [address], [place], [address] . tel:[phone] Offic/outpt E&m [facility], [address], [place], [place], [id number], [place] tel:[phone] [place] [facility] HEADACHE May- 9-200 9 Kasi Simpson. [address], [place], [place], [id number], [place]. tel:[phone] Referring Provider: Calvin Villaseñor, [address], [place], [address] . tel:[phone] Prevent E&m Estab Pt; 40-64 Yr [facility], [address], [place], [place], [id number], [place] tel:[phone] [place] [facility] EXAM, GENERAL, ROUTINE Mar-0 2-200 9 Kasi Sipmson. [address], [place], [place], [id number], [place]. tel:[phone] Referring Provider: Calvin Villaseñor [address], [place], [address] . tel:[phone] Offic/outpt E&m [facility] [address], [address], [place], [place], [id number], [place] tel:[phone] [place] [facility] SINUSITIS, PANSINUSITIS, ACUTEOTITIS MEDIA 200 7 Kasi Simpson. [address], [place], [id number], [place]. tel:[phone] Referring Provider: Calvin Villaseñor, [address] [place], [address] . tel:[phone] Family History Family Member Type Diagnosis Age At Onset Father Problem (finding) Hypertension Payers Payer name Insurance type Covered green party ID Authoriza tion(s) No Information Social [...]
--- OUTSIDE RECORDS SUMMARY | 2025-02-04 08:12 | XMS_ITS | Clinical Summary ---
Author Organization [facility] Address [address] [place] [address] Care Team Providers Care Patient Safety Attendant Name Role Phone Guillermo Laura MD Primary Care Provider [phone] Source Comments [facility],non-owned Affiliates and Associated Physician Practices is amultiple site organization consisting of ambulatory clinics and hospital sitesin [place], [place], [place] and [place]. This disclosure is being madepursuant to the Care Everywhere program and may not contain all information available regarding this patient. Last updated 18.[facility] Allergies No known active allergies Medications * Be aware that medications may not be up to date on this document. Alwaysverify current medications with the patient. topiramate (Topamax) 25 MG tablet Take 1 (one) tablet by mouth as directed Week 1: 25 mg at bedtime. Week 2: 25 mg twice a day. Week 3: 25 mg AM, 50 mg PM. Week 4: 50 mg twice a day. 120 tablet 3 02/19/20 24 Active riboflavin 400 MG capsule Take 1 (one) capsule by mouth once daily 100 capsule 6 02/19/20 24 Active atorvastatin (Lipitor) 20 MG tablet QD 10/30/19 24 Active Toujeo SoloStar pen INJECT 40 UNITS UNDER THE SKIN ONCE DAILY Active metFORMIN (Glucophage) 1000 MG tablet 1 (one) tablet 2 times daily Active Januvia 100 MG tablet Take 1 (one) tablet by mouth once daily Active propranolol ER 24hr (Inderal LA) 60 MG capsuleIndicati ons:Intractable chronic migraine with aura with status migrainosus Take 1 (one) capsule by mouth once daily 90 capsule 4 06/30/20 24 Active nortriptyline (Pamelor) 10 MG capsule Take 1 (one) capsule by mouth 3 times daily Active Ozempic, 1 MG/DOSE, 4 MG/3ML pen Inject 1 (one) mg subcutaneously 04/28/20 24 Active rimegepant (Nurtec ODT) 75 MG tabletIndicatio ns:Intractable chronic migraine with aura with status migrainosus Take 75 mg by mouth once daily as needed for Migraine 16 tablet 2 10/15/19 25 Active Active Problems No known active problems Social History Tobacco Use Types Packs/Day Years Used Date Smoking Tobacco: Never Assessed Sex and Gender Information Value Date Recorded Sex Assigned at Not on file Legal Sex Male 10:00 AM CDT Gender Identity Not on file Sexual Orientation Not on file Last Filed Vital Signs Vital Sign Reading Time Taken Comments Blood Pressure 125/83 08/13/2024 1:08 PM UNIFORM ROOM ATTENDANT Pulse 89 08/13/2024 1:08 PM UNIFORM ROOM ATTENDANT Temperature 36.6 C (97.8 F) 08/13/2024 1:08 PM UNIFORM ROOM ATTENDANT Respiratory Rate - - Oxygen Saturation 99% 08/13/2024 1:08 PM UNIFORM ROOM ATTENDANT Inhaled Oxygen Concentration - - Weight 143.8 kg (317 lb) 08/13/2024 1:08 PM UNIFORM ROOM ATTENDANT Height 182.9 cm (6') 08/13/2024 1:08 PM UNIFORM ROOM ATTENDANT Body Mass Index 42.99 08/13/2024 1:08 PM UNIFORM ROOM ATTENDANT Plan of Treatment Upcoming Encounters Date Type Department Care Team (Late st Contact Info) Description 02/11/2025 1:20 PM CDT Office Visit [facility] [address] [place], [place] [id number] Noah Maxwell MD [address] [place], [place] [id number] Health Maintenance Due Date Last Done Comments COLON MONITORING 1965 COLONOSCOPY - COLON CA SCREENING 1965 CT COLONOGRAPHY - COLON CA SCREENING 1965 FIT - COLON CA SCREENING 1965 FLEX SIG - COLON CA SCREENING 1965 HIV SCREENING 1980 HEPATITIS C SCREENING 05/20/1983 DTAP/TDAP/TD VACCINES (1 - Tdap) 1984 HEPATITIS B VACCINE (1 of 3 - 19+ 3-dose series) 1984 PNEUMOCOCCAL VACCINE 50+ (1 of 2 - PCV) 1984 ZOSTER VACCINE (1 of 2) 2015 SCREENING FOR DIABETES 02/19/2024 12/02/2020 COVID-19 VACCINE (4 - 2023-2 5 season) 2024 09/15/2021, 01/30/2021, 01/09/2021 DEPRESSION SCREENING 08/26/2024 COLOGUARD (AGES 45-75) - COL ON CA SCREENING 01/29/2025 01/29/2022 Colorectal Cancer Screening 01/29/2025 INFLUENZA VACCINE (Season Ended) 2025 HIB VACCINE Aged Out No longer eligi ble based on patient's age to complete this topic HPV VACCINE Aged Out No longer eligi ble based on patient's age to complete this topic MENINGOCOCCAL (Group B) VACCINE SHARED DECISION-MAKING Aged Out No longer eligible based on patient's age to complete this topic MENINGOCOCCAL GROUPS A/C/Y/W VACCINE Aged Out No longer eligible b ased on patient's age to complete this topic Insurance [facility] Care Teams Patient Safety Attendant Relationship Specialty [place] [address] [place] [phone] (work) PCP - General Internal Medicine 02/19/24
--- OUTSIDE RECORDS SUMMARY | 2025-02-04 08:12 | XMS_ITS | Clinical Summary ---
Author Organization [facility] [address] Address [address] [place] [address] Care Team Providers Care Wash Tub Machine Operator Name Role Phone Guillermo Laura MD Primary Care Provider [phone] Allergies Active Allergy Reactions Criticality Noted Date [...] KwikPen (U-100) Insulin 100 unit/mL subcutaneous Active aspirin 81 mg enteric coated tablet [...] 2 (two) times a day 4 Active atorvastatin (LIPITOR) 20 mg tabletIndicatio ns:Hyperlipidem ia associated with type 2 diabetes mellitus (HCC) TAKE 1 TABLET DAILY 90 tablet 2 5 Active Active Problems Problem Noted Date Diagnosed Date History of stroke 06/19/2024 Morbid obesity 07/05/2021 History of COVID-19 12/02/2020 Obstructive sleep apnea syndrome 12/02/2020 Morbid obesity with BMI of 40.0-44.9, adult 0404/2021 Hyperlipidemia associated with type 2 diabetes m [...] on file Legal Sex Male 1:31 PM SEPHORA OPERATIONS CONSULTANT Gender Identity Not on file Sexual Orientation [...] Dilated Eye Exam 1965 Foot Exam 1965 DTaP/Tdap/Td Vaccine (1 - Tdap) 1976 Hepatitis B Screening 1983 Regular Well Visit/Exam 18-64 1983 Pneumococcal vaccine <65 (1 of 2 - PCV) 1984 Zoster Vaccine (1 of 2) 2015 Covid-19 Vaccine (4 - season) 2024 09/15/2021, 01/30/2021, 01/09/2021 Influenza Vaccine (Season Ended) 2025 Lipid Panel 05/05/2025 05/05/2024, 12/02/2020 Procedures Procedure [...] Most Recently Relevant to Health Maintenance Insurance [employer] CHOICE OOS [employer] CHOICE OOS BLUE ACC CHOICE OOS Care Teams Wash Tub Machine Operator Relationship Specialty Start Date End Date Guillermo Laura MD PCP - General Internal Medicine 11/03/20
--- OUTSIDE RECORDS SUMMARY | 2025-02-04 08:12 | XMS_ITS | Referral Summary ---
Author Organization [facility] [address] Address [address] [place] [address] Care Team Providers Care Room Service Waiter/Waitress Name Role Phone Guillermo Laura MD Primary Care Provider [phone] Allergies Active Allergy Reactions Criticality Noted Date [...] on file Legal Sex Male 1:31 PM TOWER ERECTOR Gender Identity Not on file Sexual Orientation [...] Most Recently Relevant to Health Maintenance Insurance [employer] OOS [employer] CHOICE OOS [facility] CHOICE OOS Care Teams Room Service Waiter/Waitress Relationship Specialty Start Date End Date Guillermo Laura MD PCP - General Internal Medicine 11/03/20
--- OUTSIDE RECORDS SUMMARY | 2025-02-04 08:12 | XMS_ITS | Data Portability ---
Author Organization [place] [facility] [employer], Main Office Address [address] [place] [address] Care Team Providers Care Prototype Model Maker Name Role Phone ALEXIS LAURA Referring Provider [phone] Assessment Encounter Date Assessment Date Assessment LastModified by Organization Details LastModified Time 02/25/2023 02/25/2023 Screenings discussed immunizations discussed ordered where agreeable and inappropriate blood work reviewed follow-up 4 months Ozempic if approved [email or web address] Not available 03/09/2023 16:59:55 04/04/2023 04/04/2023 Continue current therapy and follow-up in 4 months [email or web address] Not available 06/23/2023 18:17:39 07/04/2023 07/04/2023 Continue current therapy follow-up in 4 months [email or web address] Not available 07/05/2023 14:15:31 Plan of Treatment Reminders Order Date Submit Date Provider Last Modified By Organization Details Last Modified Time Details Appointments None recorded . Lab CBC w/ auto diff 07/04/20 [facility] (Lab), [address] [place], [address], 18:44:52 CMP, serum or plasma 07/04/20 [facility] (Lab), [address] [place], [address], 19:03:50 lipid panel, serum 023 07/04/20 [facility] (Lab), [address] [place], [address], 3 19:03:54 HbA1c (hemoglo bin A1c), blood 023 07/04/20 23 [email or web address] [facility] ([facility] [address] [place], [address], 4 18:48:31 Referral None recorded . Procedures None recorded . Surgeries None recorded . Imaging None recorded . Medication Orders None recorded . Patient TargetsNo targets recorded. Patient Instructions Encounter Date Encounter Id Patient Instructions Last Modified By Organization Details Last Modified Time 02/25/2023 [id number] advance care planning: care instructions [email or web address] Not available 03/09/2023 17:00:55 advance directives: care instructions [email or web address] Not available 03/09/2023 17:00:55 [place] Advance Directives [email or web address] Not available 03/09/2023 17:00:55 risk assessment* [email or web address] Not available 03/11/2023 09:57:29 INFLUENZA VACCIN E Next vaccination to be given fall TD/TDAP Patient will get at local pharmacy/health department PNEUMONIA VACCINE Recommended at age 65 SHINGLES Patient will get at local pharmacy/health department PSA No screening necessary patient is up to date COLORECTAL SCREENING No screening necessary patient is up to date DEPRESSION SCREENING Negative BMI Morbid Obesity try to lose 15% of your body weight NUTRITION Recommendation of a 1500 caloric intake for weight loss is advised PHYSICAL ACTIVITY Need more exercise/physical activity minimum of 20-30 minutes activity that causes mild breathlessness/day ALCOHOL USE No alcohol use TOBACCO USE former smoker If 50 or above, recommend lung cancer screening with low dose CT scan of the chest LUNG CANCER SCREENING Recommendation for Lung Cancer Screening with LDCT- ordered SEXUALLY ACTIVE Yes, Patient is in monogamous relationship HEPATITIS C SCREENING Not indicated GLUCOSE SCREENING Known Diabetic LIPID SCREENING Diagnosis of Hyperlipidemia Not available 02/25/2023 12:47:26 Reason for Referral None Reported. Results Created Date Observation Date Name Description Value Unit Range Abnormal Flag Note LastModifiedBy Organization Detail LastModifiedTime 08/03/20 22 08/03/2022 HEMOG LOBIN A1C HA1C 5.2 % 4.0-6. 0 Diabe soila Scree grant Crite cathleen: <5.7% Consi stent with absen ce of diabe soila 5.7-6 .4% Consi stent with incre ased risk for diabe soila (pred iabet es) >OR=6 .5% Consi stent with diabe soila REFER ENCE: Diabe soila Care 2015, 39(Bradley ppl.1 ):s13 -s22 Not Available [facility] (Lab) [address] [place], [address], 08/03/2022 21:26:57 08/03/20 22 08/03/2022 PSA SCREE N PSA medicare screen 0.76 NG/mL 0.00-4 .00 Not Available [facility] (Lab) [address] [place], [address], 08/03/2022 17:36:13 08/03/20 22 08/03/2022 COMPR EHENS МАРИНА METAB OLIC PANEL sodium 137 mmol/ L 137-14 5 Not Available [facility] (Lab) [address] [place], [address], 08/03/2022 17:03:28 08/03/20 22 08/03/2022 COMPR EHENS МАРИНА METAB OLIC PANEL potassium 4.6 mmol/ L 3.5-5. 1 Not Available [facility] (Lab) [address] [place], [address], 08/03/2022 17:03:28 08/03/20 22 08/03/2022 COMPR EHENS МАРИНА METAB OLIC PANEL chloride 101 mmol/ L 98-107 Not Available [facility] (Lab) [address] [place], [address], 08/03/2022 17:03:28 08/03/20 22 08/03/2022 COMPR EHENS МАРИНА METAB OLIC PANEL carbon dioxide 28 mmol/ L 22-30 Not Available [facility] (Lab) [address] [place], [address], 08/03/2022 17:03:28 08/03/20 22 08/03/2022 COMPR EHENS МАРИНА METAB OLIC PANEL anion gap 12.6 mmol/ L 14-22 low Not Available [facility] (Lab) [address] [place], [address], 08/03/2022 17:03:28 08/03/20 22 08/03/2022 COMPR EHENS МАРИНА METAB OLIC PANEL glucose 82 mg/dL 70-99 Not Available [facility] (Lab) [address] [place], [address], 08/03/2022 17:03:28 08/03/20 22 08/03/2022 COMPR EHENS МАРИНА METAB OLIC PANEL BUN 14 mg/dL 8-19 Not Available [facility] (Lab) [address] [place], [address], 08/03/2022 17:03:28 08/03/20 22 08/03/2022 COMPR EHENS МАРИНА METAB OLIC PANEL creatinine 0.76 mg/dL 0.66-1 .25 Not Available [facility] (Lab) [address] [place] [address], [address], 08/03/2022 17:03:28 08/03/20 22 08/03/2022 COMPR EHENS МАРИНА METAB OLIC PANEL GFR >60 Refer ence Range : [place] ge GFR Healt hy Adult : >60 [...] calcu lator is avail able on the [facility] websi te: https :[email or web address] [email or web address] [email or web address] rg/pr ofess ional s/kdo qi/gf r_cal culat or Not Available [facility] (Lab) [address] [place], [address], 08/03/2022 17:03:28 08/03/20 22 08/03/2022 COMPR EHENS МАРИНА METAB OLIC PANEL alkaline phosphatase 83 U/L 38-126 Not Available [facility] (Lab) [address] [place], [address], 08/03/2022 17:03:28 08/03/20 22 08/03/2022 COMPR EHENS МАРИНА METAB OLIC PANEL alanine aminotransfe rase 52 U/L 0-50 high Not Available [facility] (Lab) [address] [place], [address], 08/03/2022 17:03:28 08/03/20 22 08/03/2022 COMPR EHENS МАРИНА METAB OLIC PANEL aspartate aminotransfe rase 42 U/L 15-46 Not Available [facility] (Lab) [address] [place], [address], 08/03/2022 17:03:28 08/03/20 22 08/03/2022 COMPR EHENS МАРИНА METAB OLIC PANEL bilirubin, total 0.80 mg/dL 0.20-1 .30 Not Available [facility] (Lab) [address] [place], [address], 08/03/2022 17:03:28 08/03/20 22 08/03/2022 COMPR EHENS МАРИНА METAB OLIC PANEL calcium 9.6 mg/dL 8.4-10 .2 Not Available [facility] (Lab) [address] [place], [address], 08/03/2022 17:03:28 08/03/20 22 08/03/2022 COMPR EHENS МАРИНА METAB OLIC PANEL total protein 7.7 g/dL 6.3-8. 2 Not Available [facility] (Lab) [address] [place], [address], 08/03/2022 17:03:28 08/03/20 22 08/03/2022 COMPR EHENS МАРИНА METAB OLIC PANEL albumin 4.3 g/dL 3.4-5. 0 Not Available [facility] (Lab) [address] [place], [address], 08/03/2022 17:03:28 08/03/20 22 08/03/2022 COMPR EHENS МАРИНА METAB OLIC PANEL globulin 3.4 g/dL 2.6-4. 2 Not Available [facility] (Lab) [address] [place], [address], 08/03/2022 17:03:28 08/03/20 22 08/03/2022 COMPR EHENS МАРИНА METAB OLIC PANEL A/G ratio 1.3 ratio 1.0-2. 0 Not Available [facility] (Lab) [address] [place], [address], 08/03/2022 17:03:28 08/03/20 22 08/03/2022 LIPID PANEL cholesterol 139 mg/dL 140-19 9 low NIH CHLOE NSUS RECOM MENDA TION FOR GODWIN STERO L: ADULT CHILD LOW RISK: <200 <170 BORDE RLINE : <200- 239 ----- HIGH RISK: >240 >200 Not Available [facility] (Lab) [address] [place] [address], [address], 08/03/2022 17:03:25 08/03/20 22 08/03/2022 LIPID PANEL triglyceride s 86 mg/dL 0-150 NIH CHLOE NSUS REPOR T RECOM MENDA TION FOR TRIGL YCERI ASHER: ADULT CHILD LOW RISK: <150 ----- BODER LINE: 150-1 99 ----- HIGH RISK: >200 ----- Not Available [facility] (Lab) [address] [place], [address], 08/03/2022 17:03:25 08/03/20 22 08/03/2022 LIPID PANEL HDL cholesterol 31 mg/dL 40- low Not Available [facility] (Lab) [address] [place], [address], 08/03/2022 17:03:25 08/03/20 22 08/03/2022 LIPID PANEL [...] WILL NOT BE REPOR SEAN. Not Available [facility] (Lab) [address] [place], [address], 08/03/2022 17:03:25 08/03/20 22 08/03/2022 CBC/C OMPLE TE BLD COUNT W/DIF F hematocrit 44.0 % 39.3-5 0.0 Not Available [facility] (Lab) [address] [place], [address], 08/03/2022 16:26:16 08/03/20 22 08/03/2022 CBC/C OMPLE TE BLD COUNT W/DIF F white blood cells 10.2 x10'3 /uL 4.2-10 .8 Not Available [facility] (Lab) [address] [place], [address], 08/03/2022 16:26:16 08/03/20 22 08/03/2022 CBC/C OMPLE TE BLD COUNT W/DIF F red blood cells 4.96 x10'6 /uL 4.10-5 .80 Not Available [facility] (Lab) [address] [place], [address], 08/03/2022 16:26:16 08/03/20 22 08/03/2022 CBC/C OMPLE TE BLD COUNT W/DIF F hemoglobin 13.6 g/dL 13.2-1 7.0 Not Available [facility] (Lab) [address] [place], [address], 08/03/2022 16:26:16 08/03/20 22 08/03/2022 CBC/C OMPLE TE BLD COUNT W/DIF F mean red cell volume 88.7 fL 80.0-9 7.0 Not Available [facility] (Lab) [address] [place], [address], 08/03/2022 16:26:16 08/03/20 22 08/03/2022 CBC/C OMPLE TE BLD COUNT W/DIF F mean red cell hemoglobin 27.4 pg 27.0-3 3.0 Not Available [facility] (Lab) [address] [place], [address], 08/03/2022 16:26:16 08/03/20 22 08/03/2022 CBC/C OMPLE TE BLD COUNT W/DIF F mean RBC HGB concentratio n 30.9 g/dL 31.0-3 6.0 low Not Available [facility] (Lab) [address] [place], [address], 08/03/2022 16:26:16 08/03/20 22 08/03/2022 CBC/C OMPLE TE BLD COUNT W/DIF F red cell distribution width 13.0 % 11.8-1 5.5 Not Available [facility] (Lab) [address] [place], [address], 08/03/2022 16:26:16 08/03/20 22 08/03/2022 CBC/C OMPLE TE BLD COUNT W/DIF F platelets 329 x10'3 /uL 150-40 0 Not Available [facility] (Lab) [address] [place], [address], 08/03/2022 16:26:16 08/03/20 22 08/03/2022 CBC/C OMPLE TE BLD COUNT W/DIF F mean platelet volume 9.7 fL 9.0-12 .4 Not Available [facility] (Lab) [address] [place], [address], 08/03/2022 16:26:16 08/03/20 22 08/03/2022 CBC/C OMPLE TE BLD COUNT W/DIF F eosinophils 4.0 % 1.0-7. 0 Not Available [facility] (Lab) [address] [place], [address], 08/03/2022 16:26:16 08/03/20 22 08/03/2022 CBC/C OMPLE TE BLD COUNT W/DIF F neutrophils 49.4 % 39.0-7 2.0 Not Available [facility] (Lab) [address] [place], [address], 08/03/2022 16:26:16 08/03/20 22 08/03/2022 CBC/C OMPLE TE BLD COUNT W/DIF F lymphocytes 37.5 % 16.0-4 7.0 Not Available [facility] (Lab) [address] [place], [address], 08/03/2022 16:26:16 08/03/20 22 08/03/2022 CBC/C OMPLE TE BLD COUNT W/DIF F monocytes 8.5 % 5.0-12 .0 Not Available [facility] (Lab) [address] [place], [address], 08/03/2022 16:26:16 08/03/20 22 08/03/2022 CBC/C OMPLE TE BLD COUNT W/DIF F basophils 0.3 % 0.0-2. 0 Not Available [facility] (Lab) [address] [place], [address], 08/03/2022 16:26:16 08/03/20 22 08/03/2022 CBC/C OMPLE TE BLD COUNT W/DIF F immature granulocytes 0.3 % 0.00-0 .50 Not Available [facility] (Lab) [address] [place], [address], 08/03/2022 16:26:16 08/03/20 22 08/03/2022 CBC/C OMPLE TE BLD COUNT W/DIF F neutrophils, absolute count 5.06 x10'3 /uL 1.5-8. 0 Not Available [facility] (Lab) [address] [place], [address], 08/03/2022 16:26:16 08/03/20 22 08/03/2022 CBC/C OMPLE TE BLD COUNT W/DIF F lymphocytes, absolute count 3.84 x10'3 /uL 1.07-3 .43 high Not Available [facility] (Lab) [address] [place], [address], 08/03/2022 16:26:16 08/03/20 22 08/03/2022 CBC/C OMPLE TE BLD COUNT W/DIF F monocytes, absolute count 0.87 x10'3 /uL 0.29-0 .99 Not Available [facility] (Lab) [address] [place], [address], 08/03/2022 16:26:16 08/03/20 22 08/03/2022 CBC/C OMPLE TE BLD COUNT W/DIF F eosinophils, absolute count 0.41 x10'3 /uL 0.02-0 .53 Not Available [facility] (Lab) [address] [place], [address], 08/03/2022 16:26:16 08/03/20 22 08/03/2022 CBC/C OMPLE TE BLD COUNT W/DIF F basophils, absolute count 0.03 x10'3 /uL 0.01-0 .08 Not Available [facility] (Lab) [address] [place], [address], 08/03/2022 16:26:16 08/03/20 22 08/03/2022 CBC/C OMPLE TE BLD COUNT W/DIF F immature granulocytes ,absolute 0.03 x10'3 /uL 0.00-0 .05 Not Available [facility] (Lab) [address] [place], [address], 08/03/2022 16:26:16 08/03/20 22 08/03/2022 CBC/C OMPLE TE BLD COUNT W/DIF F nucleated red blood cells 0.0 % -0 Not Available [facility] (Lab) [address] [place], [address], 08/03/2022 16:26:16 08/03/20 22 08/03/2022 CBC/C OMPLE TE BLD COUNT W/DIF F NRBC# 0.00 x10'3 /uL Not Available [facility] (Lab) [address] [place], [address], 08/03/2022 16:26:16 01/25/20 23 01/24/2023 CBC/C OMPLE TE BLD COUNT W/DIF F white blood cells 9.7 x10'3 /uL 4.2-10 .8 Not Available [facility] (Lab) [address] [place], [address], 01/24/2023 18:02:21 01/25/20 23 01/24/2023 CBC/C OMPLE TE BLD COUNT W/DIF F red blood cells 4.80 x10'6 /uL 4.10-5 .80 Not Available [facility] (Lab) [address] [place], [address], 01/24/2023 18:02:21 01/25/20 23 01/24/2023 CBC/C OMPLE TE BLD COUNT W/DIF F hemoglobin 13.3 g/dL 13.2-1 7.0 Not Available [facility] (Lab) [address] [place], [address], 01/24/2023 18:02:21 01/25/20 23 01/24/2023 CBC/C OMPLE TE BLD COUNT W/DIF F hematocrit 42.4 % 39.3-5 0.0 Not Available [facility] (Lab) [address] [place], [address], 01/24/2023 18:02:21 01/25/20 23 01/24/2023 CBC/C OMPLE TE BLD COUNT W/DIF F mean red cell volume 88.3 fL 80.0-9 7.0 Not Available [facility] (Lab) [address] [place], [address], 01/24/2023 18:02:21 01/25/20 23 01/24/2023 CBC/C OMPLE TE BLD COUNT W/DIF F mean red cell hemoglobin 27.7 pg 27.0-3 3.0 Not Available [facility] (Lab) [address] [place], [address], 01/24/2023 18:02:21 01/25/20 23 01/24/2023 CBC/C OMPLE TE BLD COUNT W/DIF F mean RBC HGB concentratio n 31.4 g/dL 31.0-3 6.0 Not Available [facility] (Lab) [address] [place], [address], 01/24/2023 18:02:21 01/25/2001/24/2023 CBC/C OMPLE TE BLD COUNT W/DIF F red cell distribution width 12.9 % 11.8-1 5.5 Not Available [facility] (Lab) [address] [place], [address], 01/24/2023 18:02:21 01/25/20 23 01/24/2023 CBC/C OMPLE TE BLD COUNT W/DIF F platelets 355 x10'3 /uL 150-40 0 Not Available [facility] (Lab) [address] [place], [address], 01/24/2023 18:02:21 01/25/20 23 01/24/2023 CBC/C OMPLE TE BLD COUNT W/DIF F mean platelet volume 9.6 fL 9.0-12 .4 Not Available [facility] (Lab) [address] [place], [address], 01/24/2023 18:02:21 01/25/2001/24/2023 CBC/C OMPLE TE BLD COUNT W/DIF F neutrophils 48.7 % 39.0-7 2.0 Not Available [facility] (Lab) [address] [place], [address], 01/24/2023 18:02:21 01/25/2001/24/2023 CBC/C OMPLE TE BLD COUNT W/DIF F lymphocytes 38.1 % 16.0-4 7.0 Not Available [facility] (Lab) [address] [place], [address], 01/24/2023 18:02:21 01/25/20 23 01/24/2023 CBC/C OMPLE TE BLD COUNT W/DIF F monocytes 8.4 % 5.0-12 .0 Not Available [facility] (Lab) [address] [place], [address], 01/24/2023 18:02:21 01/25/2001/24/2023 CBC/C OMPLE TE BLD COUNT W/DIF F eosinophils 3.8 % 1.0-7. 0 Not Available [facility] (Lab) [address] [place], [address], 01/24/2023 18:02:21 01/25/2001/24/2023 CBC/C OMPLE TE BLD COUNT W/DIF F basophils 0.6 % 0.0-2. 0 Not Available [facility] (Lab) [address] [place], [address], 01/24/2023 18:02:21 01/25/2001/24/2023 CBC/C OMPLE TE BLD COUNT W/DIF F immature granulocytes 0.4 % 0.00-0 .50 Not Available [facility] (Lab) [address] [place], [address], 01/24/2023 18:02:21 01/25/2001/24/2023 CBC/C OMPLE TE BLD COUNT W/DIF F neutrophils, absolute count 4.71 x10'3 /uL 1.5-8. 0 Not Available [facility] (Lab) [address] [place], [address], 01/24/2023 18:02:21 01/25/2001/24/2023 CBC/C OMPLE TE BLD COUNT W/DIF F lymphocytes, absolute count 3.69 x10'3 /uL 1.07-3 .43 high Not Available [facility] (Lab) [address] [place], [address], 01/24/2023 18:02:21 01/25/2001/24/2023 CBC/C OMPLE TE BLD COUNT W/DIF F monocytes, absolute count 0.81 x10'3 /uL 0.29-0 .99 Not Available [facility] (Lab) [address] [place], [address], 01/24/2023 18:02:21 01/25/20 23 01/24/2023 CBC/C OMPLE TE BLD COUNT W/DIF F eosinophils, absolute count 0.37 x10'3 /uL 0.02-0 .53 Not Available [facility] (Lab) [address] [place], [address], 01/24/2023 18:02:21 01/25/20 23 01/24/2023 CBC/C OMPLE TE BLD COUNT W/DIF F basophils, absolute count 0.06 x10'3 /uL 0.01-0 .08 Not Available [facility] (Lab) [address] [place], [address], 01/24/2023 18:02:21 01/25/20 23 01/24/2023 CBC/C OMPLE TE BLD COUNT W/DIF F immature granulocytes ,absolute 0.04 x10'3 /uL 0.00-0 .05 Not Available [facility] (Lab) [address] [place], [address], 01/24/2023 18:02:21 01/25/2001/24/2023 CBC/C OMPLE TE BLD COUNT W/DIF F nucleated red blood cells 0.0 % -0 Not Available [facility] (Lab) [address] [place], [address], 01/24/2023 18:02:21 01/25/20 23 01/24/2023 CBC/C OMPLE TE BLD COUNT W/DIF F NRBC# 0.00 x10'3 /uL Not Available [facility] (Lab) [address] [place], [address], 01/24/2023 18:02:21 01/25/2001/24/2023 LIPID PANEL cholesterol 129 mg/dL 140-19 9 low NIH CHLOE NSUS RECOM MENDA TION FOR GODWIN STERO L: ADULT CHILD LOW RISK: <200 <170 BORDE RLINE : <200- 239 ----- HIGH RISK: >240 >200 Not Available [facility] (Lab) [address] [place], [address], 01/24/2023 18:11:29 01/25/20 23 01/24/2023 LIPID PANEL triglyceride s 128 mg/dL 0-150 NIH CLHOE NSUS REPOR T RECOM MENDA TION FOR TRIGL YCERI ASHER: ADULT CHILD LOW RISK: <150 ----- BODER LINE: 150-1 99 ----- HIGH RISK: >200 ----- Not Available [facility] (Lab) [address] [place], [address], 01/24/2023 18:11:29 01/25/2001/24/2023 LIPID PANEL HDL cholesterol 26 mg/dL 40- low Not Available [facility] (Lab) [address] [place], [address], 01/24/2023 18:11:29 01/25/20 23 01/24/2023 LIPID PANEL [...] WILL NOT BE REPOR SEAN. Not Available [facility] (Lab) [address] [place], [address], 01/24/2023 18:11:29 01/25/20 23 01/24/2023 COMPR EHENS МАРИНА METAB OLIC PANEL sodium 140 mmol/ L 137-14 5 Not Available [facility] (Lab) [address] [place], [address], 01/24/2023 18:11:34 01/25/20 23 01/24/2023 COMPR EHENS МАРИНА METAB OLIC PANEL potassium 4.6 mmol/ L 3.5-5. 1 Not Available [facility] (Lab) [address] [place], [address], 01/24/2023 18:11:34 01/25/20 23 01/24/2023 COMPR EHENS МАРИНА METAB OLIC PANEL chloride 102 mmol/ L 98-107 Not Available [facility] (Lab) [address] [place], [address], 01/24/2023 18:11:34 01/25/20 23 01/24/2023 COMPR EHENS МАРИНА METAB OLIC PANEL carbon dioxide 25 mmol/ L 22-30 Not Available [facility] (Lab) [address] [place], [address], 01/24/2023 18:11:34 01/25/20 23 01/24/2023 COMPR EHENS МАРИНА METAB OLIC PANEL anion gap 17.6 mmol/ L 14-22 Not Available [facility] (Lab) [address] [place], [address], 01/24/2023 18:11:34 01/25/20 23 01/24/2023 COMPR EHENS МАРИНА METAB OLIC PANEL glucose 121 mg/dL 70-99 high Not Available [facility] (Lab) [address] [place], [address], 01/24/2023 18:11:34 01/25/20 23 01/24/2023 COMPR EHENS МАРИНА METAB OLIC PANEL BUN 17 mg/dL 8-19 Not Available [facility] (Lab) [address] [place], [address], 01/24/2023 18:11:34 01/25/20 23 01/24/2023 COMPR EHENS МАРИНА METAB OLIC PANEL creatinine 0.79 mg/dL 0.66-1 .25 Not Available [facility] (Lab) [address] [place], [address], 01/24/2023 18:11:34 01/25/20 23 01/24/2023 COMPR EHENS МАРИНА METAB OLIC PANEL GFR >60 Refer ence Range : [place] ge GFR Healt hy Adult : >60 [...] calcu lator is avail able on the [facility] websi te: https :[email or web address] [email or web address] rg/pr kbess ional s/kdo qi/gf r_cal culat or Not Available [facility] (Lab) [address] [place], [address], 01/24/2023 18:11:34 01/25/2001/24/2023 COMPR EHENS МАРИНА METAB OLIC PANEL alkaline phosphatase 79 U/L 38-126 Not Available [facility] (Lab) [address] [place], [address], 01/24/2023 18:11:34 01/25/20 23 01/24/2023 COMPR EHENS МАРИНА METAB OLIC PANEL alanine aminotransfe rase 50 U/L 0-50 Not Available [facility] (Lab) [address] [place], [address], 01/24/2023 18:11:34 01/25/20 23 01/24/2023 COMPR EHENS МАРИНА METAB OLIC PANEL aspartate aminotransfe rase 42 U/L 15-46 Not Available [facility] (Lab) [address] [place], [address], 01/24/2023 18:11:34 01/25/20 23 01/24/2023 COMPR EHENS МАРИНА METAB OLIC PANEL bilirubin, total 0.60 mg/dL 0.20-1 .30 Not Available [facility] (Lab) [address] [place], [address], 01/24/2023 18:11:34 01/25/20 23 01/24/2023 COMPR EHENS МАРИНА METAB OLIC PANEL calcium 9.6 mg/dL 8.4-10 .2 Not Available [facility] (Lab) [address] [place], [address], 01/24/2023 18:11:34 01/25/20 23 01/24/2023 COMPR EHENS МАРИНА METAB OLIC PANEL total protein 7.7 g/dL 6.3-8. 2 Not Available [facility] (Lab) [address] [place], [address], 01/24/2023 18:11:34 01/25/20 23 01/24/2023 COMPR EHENS МАРИНА METAB OLIC PANEL albumin 4.1 g/dL 3.4-5. 0 Not Available [facility] (Lab) [address] [place], [address], 01/24/2023 18:11:34 01/25/20 23 01/24/2023 COMPR EHENS МАРИНА METAB OLIC PANEL globulin 3.6 g/dL 2.6-4. 2 Not Available [facility] (Lab) [address] [place], [address], 01/24/2023 18:11:34 01/25/20 23 01/24/2023 COMPR EHENS МАРИНА METAB OLIC PANEL A/G ratio 1.1 ratio 1.0-2. 0 Not Available [facility] (Lab) [address] [place], [address], 01/24/2023 18:11:34 01/25/20 23 01/24/2023 T4 FREE free T4 1.30 NG/dL 0.78-2 .19 Not Available [facility] (Lab) [address] [place], [address], 01/24/2023 19:05:42 01/25/20 23 01/24/2023 T3 FREE free T3 4.0 pg/mL 2.77-5 .27 Not Available [facility] (Lab) [address] [place], [address], 01/24/2023 19:05:46 01/25/20 23 01/24/2023 TSH thyroid-stim ulating hormone 3.390 uIU/m L 0.465- 4.680 Not Available [facility] (Lab) [address] [place], [address], 01/24/2023 19:05:53 01/25/20 23 01/24/2023 HEMOG LOBIN A1C HA1C 5.7 % 4.0-6. 0 Diabe soila Scree grant Crite cathleen: <5.7% Consi stent with absen ce of diabe soila 5.7-6 .4% Consi stent with incre ased risk for diabe soila (pred iabet es) >OR=6 .5% Consi stent with diabe soila REFER ENCE: Diabe soila Care 2016, 39(Bradley ppl.1 ):s13 -s22 Not Available [facility] (Lab) [address] [place], [address], 01/24/2023 19:59:34 07/12/20 23 07/12/2023 CBC/C OMPLE TE BLD COUNT W/DIF F white blood cells 8.0 x10'3 /uL 4.2-10 .8 Not Available [facility] (Lab) [address] [place], [address], 07/12/2023 18:44:51 07/12/20 23 07/12/2023 CBC/C OMPLE TE BLD COUNT W/DIF F red blood cells 4.48 x10'6 /uL 4.10-5 .80 Not Available [facility] (Lab) [address] [place], [address], 07/12/2023 18:44:51 07/12/20 23 07/12/2023 CBC/C OMPLE TE BLD COUNT W/DIF F hemoglobin 12.7 g/dL 13.2-1 7.0 low Not Available [facility] (Lab) [address] [place], [address], 07/12/2023 18:44:51 07/12/20 23 07/12/2023 CBC/C OMPLE TE BLD COUNT W/DIF F hematocrit 40.6 % 39.3-5 0.0 Not Available [facility] (Lab) [address] [place], [address], 07/12/2023 18:44:51 07/12/20 23 07/12/2023 CBC/C OMPLE TE BLD COUNT W/DIF F mean red cell volume 90.6 fL 80.0-9 7.0 Not Available [facility] (Lab) [address] [place], [address], 07/12/2023 18:44:51 07/12/20 23 07/12/2023 CBC/C OMPLE TE BLD COUNT W/DIF F mean red cell hemoglobin 28.3 pg 27.0-3 3.0 Not Available [facility] (Lab) [address] [place], [address], 07/12/2023 18:44:51 07/12/20 23 07/12/2023 CBC/C OMPLE TE BLD COUNT W/DIF F mean RBC HGB concentratio n 31.3 g/dL 31.0-3 6.0 Not Available [facility] (Lab) [address] [place], [address], 07/12/2023 18:44:51 07/12/2007/12/2023 CBC/C OMPLE TE BLD COUNT W/DIF F red cell distribution width 12.9 % 11.8-1 5.5 Not Available [facility] (Lab) [address] [place], [address], 07/12/2023 18:44:51 07/12/20 23 07/12/2023 CBC/C OMPLE TE BLD COUNT W/DIF F platelets 339 x10'3 /uL 150-40 0 Not Available [facility] (Lab) [address] [place], [address], 07/12/2023 18:44:51 07/12/20 23 07/12/2023 CBC/C OMPLE TE BLD COUNT W/DIF F mean platelet volume 9.8 fL 9.0-12 .4 Not Available [facility] (Lab) [address] [place], [address], 07/12/2023 18:44:51 07/12/20 23 07/12/2023 CBC/C OMPLE TE BLD COUNT W/DIF F neutrophils 45.2 % 39.0-7 2.0 Not Available [facility] (Lab) [address] [place], [address], 07/12/2023 18:44:51 07/12/2007/12/2023 CBC/C OMPLE TE BLD COUNT W/DIF F lymphocytes 40.3 % 16.0-4 7.0 Not Available [facility] (Lab) [address] [place], [address], 07/12/2023 18:44:51 07/12/20 23 07/12/2023 CBC/C OMPLE TE BLD COUNT W/DIF F monocytes 9.1 % 5.0-12 .0 Not Available [facility] (Lab) [address] [place], [address], 07/12/2023 18:44:51 07/12/2007/12/2023 CBC/C OMPLE TE BLD COUNT W/DIF F eosinophils 4.6 % 1.0-7. 0 Not Available [facility] (Lab) [address] [place], [address], 07/12/2023 18:44:51 07/12/2007/12/2023 CBC/C OMPLE TE BLD COUNT W/DIF F basophils 0.6 % 0.0-2. 0 Not Available [facility] (Lab) [address] [place], [address], 07/12/2023 18:44:51 07/12/2007/12/2023 CBC/C OMPLE TE BLD COUNT W/DIF F immature granulocytes 0.2 % 0.00-0 .50 Not Available [facility] (Lab) [address] [place], [address], 07/12/2023 18:44:51 07/12/20 23 07/12/2023 CBC/C OMPLE TE BLD COUNT W/DIF F neutrophils, absolute count 3.62 x10'3 /uL 1.5-8. 0 Not Available [facility] (Lab) [address] [place], [address], 07/12/2023 18:44:51 07/12/2007/12/2023 CBC/C OMPLE TE BLD COUNT W/DIF F lymphocytes, absolute count 3.24 x10'3 /uL 1.07-3 .43 Not Available [facility] (Lab) [address] [place], [address], 07/12/2023 18:44:51 07/12/20 23 07/12/2023 CBC/C OMPLE TE BLD COUNT W/DIF F monocytes, absolute count 0.73 x10'3 /uL 0.29-0 .99 Not Available [facility] (Lab) [address] [place], [address], 07/12/2023 18:44:51 07/12/20 23 07/12/2023 CBC/C OMPLE TE BLD COUNT W/DIF F eosinophils, absolute count 0.37 x10'3 /uL 0.02-0 .53 Not Available [facility] (Lab) [address] [place], [address], 07/12/2023 18:44:51 07/12/20 23 07/12/2023 CBC/C OMPLE TE BLD COUNT W/DIF F basophils, absolute count 0.05 x10'3 /uL 0.01-0 .08 Not Available [facility] (Lab) [address] [place], [address], 07/12/2023 18:44:51 07/12/20 23 07/12/2023 CBC/C OMPLE TE BLD COUNT W/DIF F immature granulocytes ,absolute 0.02 x10'3 /uL 0.00-0 .05 Not Available [facility] (Lab) [address] [place], [address], 07/12/2023 18:44:51 07/12/20 23 07/12/2023 CBC/C OMPLE TE BLD COUNT W/DIF F nucleated red blood cells 0.0 % -0 Not Available [facility] (Lab) [address] [place], [address], 07/12/2023 18:44:51 07/12/20 23 07/12/2023 CBC/C OMPLE TE BLD COUNT W/DIF F NRBC# 0.00 x10'3 /uL Not Available [facility] (Lab) [address] [place], [address], 07/12/2023 18:44:51 07/12/20 23 07/12/2023 COMPR EHENS МАРИНА METAB OLIC PANEL sodium 139 mmol/ L 137-14 5 Not Available [facility] (Lab) [address] [place], [address], 07/12/2023 19:03:50 07/12/20 23 07/12/2023 COMPR EHENS МАРИНА METAB OLIC PANEL potassium 4.0 mmol/ L 3.5-5. 1 Not Available [facility] (Lab) [address] [place], [address], 07/12/2023 19:03:50 07/12/20 23 07/12/2023 COMPR EHENS МАРИНА METAB OLIC PANEL chloride 104 mmol/ L 98-107 Not Available [facility] (Lab) [address] [place], [address], 07/12/2023 19:03:50 07/12/20 23 07/12/2023 COMPR EHENS МАРИНА METAB OLIC PANEL carbon dioxide 24 mmol/ L 22-30 Not Available [facility] (Lab) [address] [place], [address], 07/12/2023 19:03:50 07/12/20 23 07/12/2023 COMPR EHENS МАРИНА METAB OLIC PANEL anion gap 15.0 mmol/ L 14-22 Not Available [facility] (Lab) [address] [place], [address], 07/12/2023 19:03:50 11/1707/12/2023 COMPR EHENS МАРИНА METAB OLIC PANEL glucose 160 mg/dL 70-99 high Not Available [facility] (Lab) [address] [place], [address], 07/12/2023 19:03:50 07/12/20 23 07/12/2023 COMPR EHENS МАРИНА METAB OLIC PANEL BUN 13 mg/dL 8-19 Not Available [facility] (Lab) [address] [place], [address], 07/12/2023 19:03:50 07/12/20 23 07/12/2023 COMPR EHENS МАРИНА METAB OLIC PANEL creatinine 0.66 mg/dL 0.66-1 .25 Not Available [facility] (Lab) [address] [place], [address], 07/12/2023 19:03:50 07/12/20 23 07/12/2023 COMPR EHENS МАРИНА METAB OLIC PANEL GFR >60 Refer ence Range : [place] ge GFR Healt hy Adult : >60 [...] or ethni c subgr oups, such as [facility] nics. Outsi de the valid ated albino [...] calcu lator is avail able on the [facility] websi te: [email or web address] :[email or web address] [email or web address] ofe/pr ofess ional s/kdo qi/gf r_cal culat or Not Available [facility] (Lab) [address] [place], [address], 07/12/2023 19:03:50 07/12/20 23 07/12/2023 COMPR EHENS МАРИНА METAB OLIC PANEL alkaline phosphatase 73 U/L 38-126 Not Available [facility] (Lab) [address] [place], [address], 07/12/2023 19:03:50 07/12/2007/12/2023 COMPR EHENS МАРИНА METAB OLIC PANEL alanine aminotransfe rase 44 U/L 0-50 Not Available [facility] (Lab) [address] [place], [address], 07/12/2023 19:03:50 07/12/20 23 07/12/2023 COMPR EHENS МАРИНА METAB OLIC PANEL aspartate aminotransfe rase 51 U/L 15-46 high Not Available [facility] (Lab) [address] [place], [address], 07/12/2023 19:03:50 07/12/20 23 07/12/2023 COMPR EHENS МАРИНА METAB OLIC PANEL bilirubin, total 0.60 mg/dL 0.20-1 .30 Not Available [facility] (Lab) [address] [place], [address], 07/12/2023 19:03:50 07/12/20 23 07/12/2023 COMPR EHENS МАРИНА METAB OLIC PANEL calcium 9.2 mg/dL 8.4-10 .2 Not Available [facility] (Lab) [address] [place], [address], 07/12/2023 19:03:50 07/12/20 23 07/12/2023 COMPR EHENS МАРИНА METAB OLIC PANEL total protein 7.6 g/dL 6.3-8. 2 Not Available [facility] (Lab) [address] [place], [address], 07/12/2023 19:03:50 07/12/20 23 07/12/2023 COMPR EHENS МАРИНА METAB OLIC PANEL albumin 4.0 g/dL 3.4-5. 0 Not Available [facility] (Lab) [address] [place], [address], 07/12/2023 19:03:50 07/12/20 23 07/12/2023 COMPR EHENS МАРИНА METAB OLIC PANEL globulin 3.6 g/dL 2.6-4. 2 Not Available [facility] (Lab) [address] [place], [address], 07/12/2023 19:03:50 07/12/20 23 07/12/2023 COMPR EHENS МАРИНА METAB OLIC PANEL A/G ratio 1.1 ratio 1.0-2. 0 Not Available [facility] (Lab) [address] [place], [address], 07/12/2023 19:03:50 07/12/20 23 07/12/2023 LIPID PANEL cholesterol 137 mg/dL 140-19 9 low NIH CHLOE NSUS RECOM MENDA TION FOR GODWIN STERO L: ADULT CHILD LOW RISK: <200 <170 BORDE RLINE : <200- 239 ----- HIGH RISK: >240 >200 Not Available [facility] (Lab) [address] [place], [address], 07/12/2023 19:03:54 07/12/20 23 07/12/2023 LIPID PANEL triglyceride s 160 mg/dL 0-150 high NIH CHLOE NSUS REPOR T RECOM MENDA TION FOR TRIGL YCERI ASHER: ADULT CHILD LOW RISK: <150 ----- BODER LINE: 150-1 99 ----- HIGH RISK: >200 ----- Not Available [facility] (Lab) [address] [place], [address], 07/12/2023 19:03:54 07/12/20 23 07/12/2023 LIPID PANEL HDL cholesterol 22 mg/dL 40- low Not Available [facility] (Lab) [address] [place], [address], 07/12/2023 19:03:54 07/12/20 23 07/12/2023 LIPID PANEL LDL cholesterol, calculated 83 mg/dL 0-130 NIH CHLOE NSUS REPOR T RECOM MENDA TIONS FOR LDL: ADULT CHILD LOW RISK <130 <110 (OPTI MAL LDL) <100 ----- ROSMERYDE RLINE : 130-1 59 ----- HIGH RISK: >160 >130 A TRIGL YCERI DE RESUL T >400 INVAL IDATE S THE CALCU LATIO N FOR LDL FRACT IONAT ION - THE LDL RESUL T WILL NOT BE REPOR SEAN. Not Available [facility] (Lab) [address] [place], [address], 07/12/2023 19:03:54 07/12/2007/12/2023 HEMOG LOBIN A1C HA1C 5.1 % 4.0-6. 0 Diabe soila Memo burns Crite cathleen: <5.7% Consi stent with absen ce of diabe soila 5.7-6 .4% Consi stent with incre ased risk for diabe soila (pred iabet es) >OR=6 .5% Consi stent with diabe soila REFER ENCE: Diabe soila Care 2016, 39(Bradley ppl.1 ):s13 -s22 Not Available [facility] (Lab) [address] [place], [address], 07/12/2023 20:27:25 03/06/20 23 03/06/2023 LDCT, chest , for lung cance r memo burns No observ ation record ed. [email or web address] [facility] [address], [place], [address], 04/04/2023 16:52:19 Result Notes None recorded. Problems Name Problem SNOMED Code Status Onset Date Resolution Date Notes Provider Name and Address Organization Details Recorded Time Renewal of prescription Active 2021 Not Available [facility] 3 23:26:20 Rectal hemorrhage 52036893 Active 2021 Not Available [facility] 3 23:26:20 Morbid obesity 078404880 Active 2018 Not Available [facility] 3 23:26:20 Osteoarthriti s of knee 661611795 Active 2018 Not Available [facility] 3 23:26:20 Type 2 diabetes mellitus without complication 537009070 Active 2021 Not Available [facility] 3 23:26:20 Chondromalaci a of patella 56726036 Active 2018 Not Available [facility] 3 23:26:20 Dyslipidemia 479607607 Active 2017 Not Available [facility] 3 23:26:20 Obesity 335505440 Active 2021 Not Available [facility] 3 23:26:20 Diabetes mellitus 69602867 Active 2016 Not Available [facility] 3 23:26:20 Sleep apnea 16080694 Active 2020 Not Available [facility] 3 23:26:20 Weight gain 0543155 Active 2021 Not Available [facility] 3 23:26:20 Notes:Medical History: 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 Procedures Surgical History Date Name Laterality Status Provider Name and Address Organization Details Recorded Time Orthopedic Surgery completed Not Available [facility] 10/24/2022 01:05:40 Excisions - Specify completed Not Available [facility] 10/24/2022 01:05:40 Imaging Results None recorded. Procedure Notes None recorded. Medical Equipment None [...] completed Not Available Not Available Not Available ParentPlusToUnboundID Ultra Test strips use to test blood glucose 3-4 times daily active Not Available Not Available No t Available Kenalog 10 mg/mL suspension for injection In office injection administe red by the provider 01/20 completed [facility]: 0003- 0494- 20 Not Available Not [...] completed Not Available Not Available Not Available [employer] 3 Fish Oil 07/14 completed Not Available Not Available Not Available lidocaine (PF) 10 mg/mL (1 %) injection solution In office injection administe red by the provider 01/20 completed [facility]: 0409- 4276- 17 Not Available Not Available Not Available BD Ultra-Fine Short Pen Needle 31 gauge x / USE 1 NEEDLE ONCE DAILY active Not [...] glucosamine 116 mg-chondroi tin 100 mg-dietary supplement no.25 capsule Take by oral route. 07/14 completed Not Available Not Available Not Available [employer]o SoloStar U-300 Insulin 300 unit/mL (1.5 mL) subcutaneou s pen INJECT 40 UNITS UNDER THE SKIN ONCE DAILY active Not Available Not Available No t Available Basaglar KwikPen U-100 Insulin 100 unit/mL (3 mL) subcutaneou [...] Date Recorded Body mass index (BMI) Body height Heart rate Body temperature Body weight Systolic blood pressure Diastolic blood pressure Provider Name and Address Organization Details Last Updated DateTime 3 42.4 kg/m2 180.34 cm 79 /min 97.2 [degF] 681580. 08 g 136 mm[Hg] 80 mm[Hg] Not Available [facility] 3 01:14:52 Date Recorded Body height Body mass index (BMI) Body weight Body temperature Heart rate Systolic blood pressure Diastolic blood pressure Provider Name and Address Organization Details Last Updated DateTime 3 180.34 cm 44.5 kg/m2 452883. 97 g 97.3 [degF] 97 /min 138 mm[Hg] 82 mm[Hg] TARYN Banks [facility] [employer] 3 12:32:51 Date Recorded Body height Body mass index (BMI) Body weight Body temperature Heart rate Systolic blood pressure Diastolic blood pressure Provider Name and Address Organization Details Last Updated DateTime 3 180.34 cm 42.5 kg/m2 578247. 67 g 98.4 [degF] 91 /min 140 mm[Hg] 78 mm[Hg] Sara vega RN [facility] [employer] 3 11:56:08 Date Recorded Body height Body mass index (BMI) Body weight Body temperature Heart rate Systolic blood pressure Diastolic blood pressure Provider Name and Address Organization Details Last Updated DateTime 3 180.34 cm 41.6 kg/m2 588741. 53 g 97.6 [degF] 90 /min 134 mm[Hg] 82 mm[Hg] Kayla Pérez MA [employer] 3 11:43:14 Date Recorded Body mass index (BMI) Body height Oxygen saturation Oxygen saturation in Arterial blood by Pulse oximetry Heart rate Body temperature Body weight Systolic blood pressure Diastolic blood pressure Provider Name and Address Organization Details Last Updated DateTime 2 41.6 kg/m2 180.34 cm 98 % 98 % 85 /min 98.9 [degF] 817995. 53 g 138 mm[Hg] 80 mm[Hg] Not Available [employer] 3 01:14:51 Social History Question Answer Notes LastModified by Organizat ion Details LastModified Time Tobacco Smoking Status Former Smoker quit 2014 TARYN Jain, [facility] 04/04/2023 11:48:42 Do You Have An Advance Directive? No [id number] Information not available 10/24/2022 Do You Wear A Helmet When Biking? No Information not available 04/04/2023 What Is Your Level Of Caffeine Consumption? Occasional [id number] Information not available 10/24/2022 How Much Tobacco Do You Chew? None [id number] Information not available 10/24/2022 In The 14 Days Before Symptom Onset, Have You Had Close Contact With A Laboratory-confi rmed COVID-19 While That Case Was Ill? No Information not available 04/04/2023 In The 14 Days Before Symptom Onset, Have You Had Close Contact With A Person Who Is Under Investigation For COVID-19 While That Person Was Ill? No Information not available 04/04/2023 What Type Of Diet Are You Following? DIABETIC [id number] Information not available 10/24/2022 Which Illicit Or Recreational Drugs Have You Used? None Information not available 04/04/2023 What Is The Highest Grade Or Level Of School You Have Completed Or The Highest Degree You Have Received? [id number] Information not available 04/04/2023 Have There Been [...] Do You Have A Medical Power Of Top Precipitator Operator? No Information not available 04/04/2023 What Was The Date Of Your Most Recent Tobacco Screening? 07/04/2023 [email or web address] Information not available 07/04/2023 Do You Have Any Pets? No Information not available 04/04/2023 What Is Your Relationship Status? Single [id number] Information not available 10/24/2022 Do You Use Your Seat Belt Or Car Seat Routinely? Yes Information not available 04/04/2023 Do You Have Smoke And Carbon Monoxide Detectors In Your Home? Yes Information not available 04/04/2023 Are You Passively Exposed To Smoke? Yes Information not available 04/04/2023 Are There Any Smokers In Your House? No Information not available 04/04/2023 How Much Tobacco Do You Smoke? No [id number] Information not available 10/24/2022 Do You Use Sunscreen Routinely? Yes Information not available 04/04/2023 Has Tobacco Cessation Counseling Been Provided? No Information not available 04/04/2023 Have You Recently Traveled Abroad? No Information not available 04/04/2023 Do You Have Any Dietary Restrictions? No Information not available 04/04/2023 Sex: Male Functional Status Question Answer Note LastModified by Organizat ion Details LastModified Time Do you use any illicit or recreational drugs? No Information not available 04/04/2023 Do you or have you ever used any other forms of tobacco or nicotine? No Information not available 04/04/2023 What is your level of alcohol consumption? None [id number] Information not available 10/24/2022 Do you or have you ever used smokeless tobacco? Never used smokeless tobacco [id number].[id number] Information not available 10/24/2022 Are you currently employed? Yes [email or web address] Information not available 04/04/2023 What is your occupation? [employer] Information not available 04/04/2023 Do you or have you ever used e-cigarettes or vape? Never used electronic cigarettes Information not available 04/04/2023 What is your exercise level? Moderate [id number].[id number] Information not available 10/24/2022 Mental Status Question Answer Note LastModified by Organization D etails LastModified Time Do you feel stressed (tense, restless, nervous, or anxious, or unable to sleep at night)? [id number] Information not available 04/04/2023 Family History Relationship Description Onset Age of this Age Resolved Age Notes LastModified by Organization Details LastModified Time Mother Diabetes mellitus [id number] Not available 10/24/2022 01:05:47 Brother Diabetes mellitus [id number] [id number] Not available 10/24/2022 01:05:47 Maternal Aunt Diabetes mellitus [id number] [id number] Not available 10/24/2022 01:05:47 Father Hypertensive disorder [id number].207 [id number] Not available 10/24/2022 01:05:47 Father Heart disease [id number] [id number] Not available 10/24/2022 01:05:47 Unspecified Relation Family [...] HAVE YOU BEEN HOSPITALIZED OR SEEN IN [facility] IN THE PAST YEAR ? N [...] mcg/0.3 mL dose 09/15/2021 completed Not Available [facility] 3 23:26:21 COVID-19, mRNA, LNP-S, PF, 30 mcg/0.3 mL dose 01/30/2021 completed Not Available [facility] 3 23:26:21 COVID-19, mRNA, LNP-S, PF, 30 mcg/0.3 mL dose 01/09/2021 completed Not Available [facility] 3 23:26:21 Past Encounters Encounter ID Performer Location Encounter Start Date Encounter Closed Date Diagnosis/Indication Diagnosis SNOMED-CT Code Diagnosis ICD10 Code Diagnosis Note [id number] Alexis Laura MD [facility] Internal Med [place] [address] [place] [address] 10/27/2020 00:00:00 10/27/2020 20:37:13 [id number] Alexis Laura MD [facility] Internal Med [place] [address] [place] [address] 02/14/2021 00:00:00 02/21/2021 22:27:46 [id number] Refugio V[facility] [place] [address] [address] 02/22/2021 00:00:00 02/22/2021 11:23:48 [id number] Refugio Vance MD [facility] [place] [address] [address] 03/22/2021 00:00:00 03/22/2021 11:19:15 [id number] Refugio Vance MD [facility] [place] [address] [address] 05/23/2021 00:00:00 05/23/2021 14:28:39 [id number] Alexis Laura MD [facility] [place] [address] [place] [address] y , [place] [address] 06/13/2021 00:00:00 06/16/2021 11:37:30 [id number] Alexis Laura MD [facility] Internal Med [place] [address] [place] [address] 11/21/2021 00:00:00 11/21/2021 21:21:44 [id number] Alexis Laura MD [facility] Internal [place] [address] [place] [address] y , [place] [address] 12/19/2021 00:00:00 01/07/2022 17:24:28 [id number] Alexis Laura MD [facility] Internal [place] [address] [place] [address] y , [place] [address] 01/16/2022 00:00:00 01/22/2022 13:05:04 [id number] Alexis Laura MD [facility] Internal Med [place] [address] [facility] [address] , [place] [address] 02/13/2022 00:00:00 02/13/2022 21:26:12 [id number] Alexis Laura MD [facility] Internal Med [place] [address] [facility] [address] , [place] [address] 04/24/2022 00:00:00 06/17/2022 17:43:58 [id number] Alexis Laura MD [facility] Internal Med [place] [address] [facility] [address] 06/05/2022 00:00:00 06/10/2022 15:42:13 [id number] Alexis Laura MD [facility] Internal Med [place] [address] [facility] [place] [address] 07/31/2022 00:00:00 08/27/2022 12:18:03 [id number] Alexis Laura MD [facility] Internal Med [place] [address] [facility] [address] , [place] [address] 10/04/2022 00:00:00 10/04/2022 14:04:18 [id number] Alexis Laura MD [facility] Internal Med [facility] [address] [facility] [place] [address] 02/25/2023 11:30:06 02/25/2023 12:58:29 Adult health examination 038816254 Z00.00 Depression screening 171 378674 Z13.31 neg Body mass index 40+ - severely obese 869045180 Z68.41 Dyslipidemia 678962373 E 78.5 Sleep apnea 51628819 G47 .30 Diabetes mellitus 612711 09 E11.9 Type 2 egoffrey betes mellitus without complication 384951615 E11.9 Obesity 944181415 E66.9 [id number] Alexis Laura MD [facility] Internal Med [place] [address] [facility] [address] , [place] [address] 04/04/2023 11:48:34 04/04/2023 12:35:18 Dyslipidemia 515030402 E78.5 Sleep apnea 78351872 G47 .30 Morbid obesity 281397262 E66.01 Type 2 geoffrey betes mellitus without complication 279240406 E11.9 [id number] Alexis Laura MD [facility] Internal Med [place] [address] [facility] [place] [address] 07/04/2023 11:34:13 07/04/2023 12:50:30 Dyslipidemia 251819782 E78.5 Diabetes mellitus 004852 09 E11.9 Sleep apnea 05512491 G47 .30 Health Concerns Section Related Observation LastModified by Organization Detai ls LastModified Time None Recorded Concern Status LastModified by Organization Details LastModified Time None Recorded Advance Directives Directive N: Payers Insurance Date Sequence Insurance Name Policy Number Policy Harris Covered Member ID Harris Member ID Guarantor Name 07/08/2023 1 [facility] ([place] [id number] Billy Butler [id number] Billy Butler 07/03/2023 [facility] Billy Butler SELF SELF Billy Butler Notes Date Note Type Note Provider Name and Address Organization Details Recorded Time 02/25/2023 text/html Diabetes no polyphagia polydipsia sugars have been doing [place] [facility] completed obesity try to lose weight Alexis Laura MD [address], [place], [address], [employer] 03/09/2023 17:00:58 04/04/2023 text/html Dyslipidemia cou ld do better on diet sleep apnea compliant morbid obesity trying to lose weight diabetes no polyphagia no polydipsia is taking his medication as prescribed Alexis Laura MD [address], [place], [address], [employer] 06/23/2023 18:17:54 07/04/2023 text/html Dyslipidemia cou ld do better on diet sleep apnea compliant morbid obesity trying to lose weight diabetes no polyphagia no polydipsia is taking his medication as prescribed Alexis Laura MD [address], [place], [address], [facility] 07/05/2023 14:15:47
[2025-02-04 08:24] LABS: Hematocrit 43.4 % (42.0-52.0); Hemoglobin 13.6 g/dL (14.0-18.0); Mean Corpuscular HGB Conc 31.3 g/dl (32-36); Mean Corpuscular Hemoglobin 27.8 pg (26-34); Mean Corpuscular Volume 88.8 fl (80-100); Mean Platelet Volume 8.9 fl (7.4-10.4); Platelet Count Result 321 k/mm3 (150-375); Red Blood Count 4.89 M/mm3 (4.6-6.20); Red Cell Distribution Width 12.8 % (11.5-14.5); White Blood Count 10.1 K/mm3 (4.5-10.0)
[2025-02-04 08:34] LABS: Alanine Aminotransferase 43 U/L (6-50); Albumin Level 4.4 g/dL (3.5-5.1); Alkaline Phosphatase 85 U/L (38-126); Anion Gap 9 mmol/L (4-12); Aspartate Amino Transferase 39 U/L (17-59); Bilirubin,Total 0.6 mg/dL (0.2-1.3); Blood Urea Nitrogen 15 mg/dL (9-20); Calcium 9.6 mg/dL (8.4-10.2); Carbon Dioxide 25 mmol/L (22-30); Chloride 104 mmol/L (98-107); Cholesterol 124 mg/dL (0-200); Estimated Glomerular Filt Rate > 60; Glucose 88 mg/dL (65-110); HDL Direct 30 mg/dL; Potassium 4.4 mmol/L (3.4-5.0); Sodium 138 mmol/L (137-145); Total Protein 7.9 g/dL (6.3-8.2); Triglycerides 85 mg/dL (<150)
[2025-02-04 08:43] LABS: Hemoglobin A1C 5.1 % (<5.7)
[2025-02-04 08:45] LABS: LDL Cholesterol Direct 67 mg/dL
[2025-02-04 09:13] LABS: HIV 1/2 Ab P24 Ag Result Negative (Negative)
== END 2025-02-04 08:05 | disposition home or self-care (01) ==
LOC: ANHLAB 08:07
PROVIDERS: PCP Internal Medicine; Visit Provider Internal Medicine
DX: E78.5 Hyperlipidemia, unspecified (principal); E11.9 Type 2 diabetes mellitus without complications; Z11.4 Encounter for screening for human immunodeficiency virus [HIV]
CPT/HCPCS: 36415; 80053; 80061; 83036; 85027; 86703; G0432

== ENCOUNTER 2025-08-17 09:21 | Outpatient (CLI) | payer BC, SELFPAY ==
--- OUTSIDE RECORDS SUMMARY | 2025-08-17 09:39 | XMS_ITS | Clinical Summary ---
Author Organization [facility] Address [address] [place] [address] Care Team Providers Care Director Medical Writing Name Role Phone Unavailable Primary Care Provider [...] Virus (HCV) Screening 1965 TdaP Immunization 1965 Cologuard 2010 Colonoscopy 2010 Colorectal Cancer Screening 2010 Immunochemical Fecal Occult Blood 2010 Pneumococcal Immunization (5 0+ years) (1 of 1 - PCV) 2015 Zoster Immunization (1 of 2) 2015 Influenza Immunization (#1) 2025 SARS-COV-2 Immunization ( - season) 2025 Respiratory Syncytial Virus (RSV) Immunization (Adult) (1 - 1-dose 75+ series) 2040 Hepatitis B Immunization Aged Out No longer eligible based on patient's age to complete this topic Human Papillomavirus (HPV) Immunization Aged Out No longer eligible b ased on patient's age to complete this topic Meningococcal Immunization (ACWY) Aged Out No longer eligible based on patient's age to complete this topic Rotavirus Immunization Aged Out No lo nger eligible based on patient's age to complete this topic
--- OUTSIDE RECORDS SUMMARY | 2025-08-17 09:39 | XMS_ITS | Clinical Summary ---
Author Organization [facility] Address [address] [place] [address] Care Team Providers Care Parts Sales Advisor Name Role Phone Guillermo Laura MD Primary Care Provider [phone] Source Comments [facility],non-owned Affiliates and Associated Physician Practices is amultiple site organization consisting of ambulatory clinics and hospital sitesin [place], [place], [place] and [place]. This disclosure is being madepursuant to the Care Everywhere program and may not contain all information available regarding this patient. Last updated 18.[facility] Allergies No known active allergies Medications * Be aware that medications may not be up to date on this document. Alwaysverify current medications with the patient. riboflavin 400 MG capsule Take 1 (one) [...] as needed for Migraine 16 tablet 2 02/26/20 25 Active Active Problems No known active problems Encounters Date Type Department Care Team Description 08/04/2025 3:00 PM [employer] Office Visit Replaced by [facility] [address] [place] [address] Noah Maxwell MD Severe headache (Primary Dx); Intractable chronic migraine with aura with status migrainosus; Worsening headaches from Last 3 Months Social History Tobacco Use Types Packs/Day Years Used Date Smoking Tobacco: Never Assessed Sex and Gender Information Value Date Recorded Sex Assigned at Not on file Legal Sex Male 10:00 AM CDT Gender Identity Not on file Sexual Orientation Not on file Last Filed Vital Signs Vital Sign Reading Time Taken Comments Blood Pressure 126/72 08/04/2025 3:12 PM [employer] Pulse 96 08/04/2025 3:12 PM [employer] Temperature 36.4 C (97.6 F) 08/04/2025 3:12 PM [employer] Respiratory Rate - - Oxygen Saturation 98% 08/04/2025 3:12 PM [employer] Inhaled Oxygen Concentration - - Weight 143.3 kg (316 lb) 08/04/2025 3:12 PM [employer] Height 182.9 cm (6') 02/11/2025 1:27 PM CDT Body Mass Index 42.86 02/11/2025 1:27 PM CDT Plan of Treatment Upcoming Encounters Date Type Department Care Team (Late st Contact Info) Description 02/03/2026 1:20 PM CDT Office Visit Replaced by [facility] [address] [place] [address] [place] [address] [place] [address] [address] [place] [address] Health Maintenance Due Date Last Done Comments COLON MONITORING 1965 COLONOSCOPY - COLON CA SCREENING 1965 CT COLONOGRAPHY - COLON CA SCREENING 1965 FIT - COLON CA SCREENING 1965 FLEX SIG - COLON CA SCREENING 1965 HIV SCREENING 1980 HEPATITIS C SCREENING 05/20/1983 DTAP/TDAP/TD VACCINES (1 - Tdap) 1984 PNEUMOCOCCAL VACCINE 50+ (1 of 1 - PCV) 2015 Respiratory Syncytial Virus (RSV) Vaccine Pt: or over 60 yrs (1 - Risk 50-74 years 1-dose series) 2015 ZOSTER VACCINE (1 of 2) 2015 SCREENING FOR DIABETES 02/19/2024 DEPRESSION SCREENING 08/26/2024 COVID-19 VACCINE (4 - 2024-2 6 season) 2025 09/15/2021, 01/30/2021, 01/09/2021 INFLUENZA VACCINE (#1) 2025 COLOGUARD (AGES 45-75) - COL ON CA SCREENING 03/15/2028 03/15/2025, 01/29/2022 Colorectal Cancer Screening 03/15/2028 HEPATITIS B VACCINE Aged Out No longe r eligible based on patient's age to complete this topic HIB VACCINE Aged Out No longer eligi [...] patient's age to complete this topic Insurance ANTHEM Care Teams Parts Sales Advisor Relationship Specialty Start Date End Date Guillermo Laura MD [address] [place] [address] PCP - General Internal Medicine 02/19/24
--- OUTSIDE RECORDS SUMMARY | 2025-08-17 09:39 | XMS_ITS | Clinical Summary ---
Author Organization [facility] [address] Address [address] [place] [address] Care Team Providers Care Offset Lithographic Press Operator Name Role Phone Guillermo Laura MD Primary Care Provider Allergies Active Allergy Reactions Criticality Noted Date Comments Atenolol-Chlorthalidone Cough Low 03/08/2016 Medications TOUJEO 300 unit/mL (1.5 mL) pen for injection 1 Active metFORMIN (GLUCOPHAGE) 1,000 mg tablet 2 (two) times a day 1 Active Januvia 100 mg tablet 1 Active UltiCare Pen Needle 31 gauge x 16 needle 1 Active OneTouch Delica Plus Lancet [...] Date Comments Shortness of breath Diabetes mellitus 06/19/2017 Migraines Family History Medical History Relation [...] on file Legal Sex Male 1:31 PM [employer] Gender Identity Not on file Sexual Orientation [...] Vaccine (1 of 2) 2015 Covid-19 Vaccine ( season) 2025 09/15/2021, 01/30/2021, 01/09/2021 Influenza Vaccine (#1) 2025 Lipid Panel 05/05/2025 05/05/2024, 12/02/2020 Procedures [...] us Historical Provider LAB BLOOD ORDERABLES Kavitha silvia Result EXTERNAL LAB from Last 3 Months or Most Recently Relevant to Health Maintenance Insurance [employer] CHOICE OOS [email or web address] CHOICE OOS BLUE [email or web address] CHOICE OOS Care Teams Offset Lithographic Press Operator Relationship Specialty Start Date End Date Guillermo Laura MD PCP - General Internal Medicine 11/03/20
--- OUTSIDE RECORDS SUMMARY | 2025-08-17 09:39 | XMS_ITS | Data Portability ---
Author Organization [place] - [facility], Main Office Address [address] [place] [address] Care Team Providers Care Mechanic Senior Name Role Phone JUMANA ALEXIS Referring Provider [phone] Assessment Encounter Date Assessment Date Assessment LastModified by Organization Details LastModified Time 02/25/2023 02/25/2023 Screenings discussed immunizations discussed ordered where agreeable and inappropriate blood work reviewed follow-up 4 months Ozempic if approved Not available 03/09/2023 16:59:55 04/04/2023 04/04/2023 Continue current therapy and follow-up in 4 months [email or web address] Not available 06/23/2023 18:17:39 07/04/2023 07/04/2023 Continue current therapy follow-up in 4 months [email or web address] Not available 07/05/2023 14:15:31 Plan of Treatment Reminders Order Date Submit Date Provider Last Modified By Organization Details Last Modified Time Details Appointments None recorded . Lab CBC w/ auto diff 07/04/20 [facility] (Lab), [address] [place], [address], 18:44:52 CMP, serum or plasma 07/04/20 [facility] (Lab), [address] [place], [address], 3 19:03:50 lipid panel, serum 023 07/04/20 [facility] (Lab), [address] [place], [address], 3 19:03:54 HbA1c (hemoglo bin A1c), blood 023 07/04/20 23 [facility] ([facility] [address] [place], [address], 4 18:48:31 Referral None recorded . Procedures None recorded . Surgeries None recorded . Imaging None recorded . Medication Orders None recorded . Patient TargetsNo targets recorded. Patient Instructions Encounter Date Encounter Id Patient Instructions Last Modified By Organization Details Last Modified Time 02/25/2023 [id number] advance care planning: care instructions [email or web address] Not available 03/09/2023 17:00:55 advance directives: care instructions [email or web address] Not available 03/09/2023 17:00:55 [place] Advance Directives [email or web address] Not available 03/09/2023 17:00:55 risk assessment* cyahl [...] 2015, 39(Bradley ppl.1 ):s13 -s22 Not Available [facility] (Lab) [address] [place], [address], 08/03/2022 21:26:57 08/03/20 22 08/03/2022 PSA SCREE N PSA medicare screen 0.76 NG/mL 0.00-4 .00 Not Available [facility] (Lab) [address] [place], [address], 08/03/2022 17:36:13 08/03/20 22 08/03/2022 COMPR EHENS МАРИНА METAB OLIC PANEL sodium 137 mmol/ L 137-14 5 Not Available [facility] (Lab) [address] [place], [address], 08/03/2022 17:03:28 08/03/20 22 08/03/2022 COMPR EHENS МАРИНА METAB OLIC PANEL potassium 4.6 mmol/ L 3.5-5. 1 Not Available [facility] (Lab) [address] [place], [address], 08/03/2022 17:03:28 08/03/20 22 08/03/2022 COMPR EHENS МАРИНА METAB OLIC PANEL chloride 101 mmol/ L 98-107 Not Available [facility] (Lab) [address] [place], [address], 08/03/2022 17:03:28 08/03/20 22 08/03/2022 COMPR EHENS МАРИНА METAB OLIC PANEL carbon dioxide 28 mmol/ L 22-30 Not Available [facility] (Lab) [address] [place], [address], 08/03/2022 17:03:28 08/03/20 22 08/03/2022 COMPR EHENS МАРИНА METAB OLIC PANEL anion gap 12.6 mmol/ L 14-22 low Not Available [facility] (Lab) [address] [place], [address], 08/03/2022 17:03:28 08/03/20 22 08/03/2022 COMPR EHENS МАРИНА METAB OLIC PANEL glucose 82 mg/dL 70-99 Not Available [facility] (Lab) [address] [place], [address], 08/03/2022 17:03:28 08/03/20 22 08/03/2022 COMPR EHENS МАРИНА METAB OLIC PANEL BUN 14 mg/dL 8-19 Not Available [facility] (Lab) [address] [place], [address], 08/03/2022 17:03:28 08/03/20 22 08/03/2022 COMPR EHENS МАРИНА METAB OLIC PANEL creatinine 0.76 mg/dL 0.66-1 .25 Not Available [facility] (Lab) [address] [place], [address], 08/03/2022 17:03:28 08/03/20 22 08/03/2022 COMPR EHENS МАРИНА METAB OLIC PANEL GFR >60 Refer ence Range : [place] ge GFR Healt hy Adult : >60 [...] calcu lator is avail able on the [facility] websi te: https :[email or web address] [email or web address] [email or web address] rg/pr ofess ional s/kdo qi/gf r_cal culat or Not Available [facility] (Lab) [address] [place], [address], 08/03/2022 17:03:28 08/03/20 22 08/03/2022 COMPR EHENS МАРИНА METAB OLIC PANEL alkaline phosphatase 83 U/L 38-126 Not Available [facility] (Lab) [address] [place], [address], 08/03/2022 17:03:28 08/03/20 22 08/03/2022 COMPR EHENS МАРИНА METAB OLIC PANEL alanine aminotransfe rase 52 U/L 0-50 high Not Available [facility] (Lab) [address] [place], [address], 08/03/2022 17:03:28 08/03/20 22 08/03/2022 COMPR EHENS МАРИНА METAB OLIC PANEL aspartate aminotransfe rase 42 U/L 15-46 Not Available [facility] (Lab) [address] [place], [address], 08/03/2022 17:03:28 08/03/20 22 08/03/2022 COMPR EHENS МАРИНА METAB OLIC PANEL bilirubin, total 0.80 mg/dL 0.20-1 .30 Not Available [facility] (Lab) [address] [place], [address], 08/03/2022 17:03:28 08/03/20 22 08/03/2022 COMPR EHENS МАРИНА METAB OLIC PANEL calcium 9.6 mg/dL 8.4-10 .2 Not Available [facility] (Lab) [address] [place], [address], 08/03/2022 17:03:28 08/03/20 22 08/03/2022 COMPR EHENS МАРИНА METAB OLIC PANEL total protein 7.7 g/dL 6.3-8. 2 Not Available [facility] (Lab) [address] [place], [address], 08/03/2022 17:03:28 08/03/20 22 08/03/2022 COMPR EHENS МАРИНА METAB OLIC PANEL albumin 4.3 g/dL 3.4-5. 0 Not Available [facility] (Lab) [address] [place], [address], 08/03/2022 17:03:28 08/03/20 22 08/03/2022 COMPR EHENS МАРИНА METAB OLIC PANEL globulin 3.4 g/dL 2.6-4. 2 Not Available [facility] (Lab) [address] [place] [address], [address], 08/03/2022 17:03:28 08/03/20 22 08/03/2022 COMPR EHENS МАРИНА METAB OLIC PANEL A/G ratio 1.3 ratio 1.0-2. 0 Not Available [facility] (Lab) [address] [place] [address], [address], 08/03/2022 17:03:28 08/03/20 22 08/03/2022 LIPID PANEL cholesterol 139 mg/dL 140-19 9 low NIH CHLOE NSUS RECOM MENDA TION FOR GODWIN STERO L: ADULT CHILD LOW RISK: <200 <170 BORDE RLINE : <200- 239 ----- HIGH RISK: >240 >200 Not Available [facility] (Lab) [address] [place] [address], [address], 08/03/2022 17:03:25 08/03/20 22 08/03/2022 LIPID PANEL triglyceride s 86 mg/dL 0-150 NIH CHLOE NSUS REPOR T RECOM MENDA TION FOR TRIGL YCERI ASHER: ADULT CHILD LOW RISK: <150 ----- BODER LINE: 150-1 99 ----- HIGH RISK: >200 ----- Not Available [facility] (Lab) [address] [place], [address], 08/03/2022 17:03:25 08/03/20 22 08/03/2022 LIPID PANEL HDL cholesterol 31 mg/dL 40- low Not Available [facility] (Lab) [address] [place], [address], 08/03/2022 17:03:25 08/03/20 22 08/03/2022 LIPID PANEL [...] WILL NOT BE REPOR SEAN. Not Available [facility] (Lab) [address] [place], [address], 08/03/2022 17:03:25 08/03/20 22 08/03/2022 CBC/C OMPLE TE BLD COUNT W/DIF F hematocrit 44.0 % 39.3-5 0.0 Not Available [facility] (Lab) [address] [place], [address], 08/03/2022 16:26:16 08/03/20 22 08/03/2022 CBC/C OMPLE TE BLD COUNT W/DIF F white blood cells 10.2 x10'3 /uL 4.2-10 .8 Not Available [facility] (Lab) [address] [place], [address], 08/03/2022 16:26:16 08/03/20 22 08/03/2022 CBC/C OMPLE TE BLD COUNT W/DIF F red blood cells 4.96 x10'6 /uL 4.10-5 .80 Not Available [facility] (Lab) [address] [place], [address], 08/03/2022 16:26:16 08/03/20 22 08/03/2022 CBC/C OMPLE TE BLD COUNT W/DIF F hemoglobin 13.6 g/dL 13.2-1 7.0 Not Available [facility] (Lab) [address] [place], [address], 08/03/2022 16:26:16 08/03/20 22 08/03/2022 CBC/C OMPLE TE BLD COUNT W/DIF F mean red cell volume 88.7 fL 80.0-9 7.0 Not Available [facility] (Lab) [address] [place], [address], 08/03/2022 16:26:16 08/03/20 22 08/03/2022 CBC/C OMPLE TE BLD COUNT W/DIF F mean red cell hemoglobin 27.4 pg 27.0-3 3.0 Not Available [facility] (Lab) [address] [place], [address], 08/03/2022 16:26:16 08/03/20 22 08/03/2022 CBC/C OMPLE TE BLD COUNT W/DIF F mean RBC HGB concentratio n 30.9 g/dL 31.0-3 6.0 low Not Available [facility] (Lab) [address] [place], [address], 08/03/2022 16:26:16 08/03/20 22 08/03/2022 CBC/C OMPLE TE BLD COUNT W/DIF F red cell distribution width 13.0 % 11.8-1 5.5 Not Available [facility] (Lab) [address] [place], [address], 08/03/2022 16:26:16 08/03/20 22 08/03/2022 CBC/C OMPLE TE BLD COUNT W/DIF F platelets 329 x10'3 /uL 150-40 0 Not Available [facility] (Lab) [address] [place], [address], 08/03/2022 16:26:16 08/03/20 22 08/03/2022 CBC/C OMPLE TE BLD COUNT W/DIF F mean platelet volume 9.7 fL 9.0-12 .4 Not Available [facility] (Lab) [address] [place], [address], 08/03/2022 16:26:16 08/03/20 22 08/03/2022 CBC/C OMPLE TE BLD COUNT W/DIF F eosinophils 4.0 % 1.0-7. 0 Not Available [facility] (Lab) [address] [place], [address], 08/03/2022 16:26:16 08/03/20 22 08/03/2022 CBC/C OMPLE TE BLD COUNT W/DIF F neutrophils 49.4 % 39.0-7 2.0 Not Available [facility] (Lab) [address] [place], [address], 08/03/2022 16:26:16 08/03/20 22 08/03/2022 CBC/C OMPLE TE BLD COUNT W/DIF F lymphocytes 37.5 % 16.0-4 7.0 Not Available [facility] (Lab) [address] [place], [address], 08/03/2022 16:26:16 08/03/20 22 08/03/2022 CBC/C OMPLE TE BLD COUNT W/DIF F monocytes 8.5 % 5.0-12 .0 Not Available [facility] (Lab) [address] [place], [address], 08/03/2022 16:26:16 08/03/20 22 08/03/2022 CBC/C OMPLE TE BLD COUNT W/DIF F basophils 0.3 % 0.0-2. 0 Not Available [facility] (Lab) [address] [place], [address], 08/03/2022 16:26:16 08/03/20 22 08/03/2022 CBC/C OMPLE TE BLD COUNT W/DIF F immature granulocytes 0.3 % 0.00-0 .50 Not Available [facility] (Lab) [address] [place], [address], 08/03/2022 16:26:16 08/03/20 22 08/03/2022 CBC/C OMPLE TE BLD COUNT W/DIF F neutrophils, absolute count 5.06 x10'3 /uL 1.5-8. 0 Not Available [facility] (Lab) [address] [place], [address], 08/03/2022 16:26:16 08/03/20 22 08/03/2022 CBC/C OMPLE TE BLD COUNT W/DIF F lymphocytes, absolute count 3.84 x10'3 /uL 1.07-3 .43 high Not Available [facility] (Lab) [address] [place], [address], 08/03/2022 16:26:16 08/03/20 22 08/03/2022 CBC/C OMPLE TE BLD COUNT W/DIF F monocytes, absolute count 0.87 x10'3 /uL 0.29-0 .99 Not Available [facility] (Lab) [address] [place], [address], 08/03/2022 16:26:16 08/03/20 22 08/03/2022 CBC/C OMPLE TE BLD COUNT W/DIF F eosinophils, absolute count 0.41 x10'3 /uL 0.02-0 .53 Not Available [facility] (Lab) [address] [place], [address], 08/03/2022 16:26:16 08/03/20 22 08/03/2022 CBC/C OMPLE TE BLD COUNT W/DIF F basophils, absolute count 0.03 x10'3 /uL 0.01-0 .08 Not Available [facility] (Lab) [address] [place], [address], 08/03/2022 16:26:16 08/03/20 22 08/03/2022 CBC/C OMPLE TE BLD COUNT W/DIF F immature granulocytes ,absolute 0.03 x10'3 /uL 0.00-0 .05 Not Available [facility] (Lab) [address] [place], [address], 08/03/2022 16:26:16 08/03/20 22 08/03/2022 CBC/C OMPLE TE BLD COUNT W/DIF F nucleated red blood cells 0.0 % -0 Not Available [facility] (Lab) [address] [place], [address], 08/03/2022 16:26:16 08/03/20 22 08/03/2022 CBC/C OMPLE TE BLD COUNT W/DIF F NRBC# 0.00 x10'3 /uL Not Available [facility] (Lab) [address] [place], [address], 08/03/2022 16:26:16 01/25/20 23 01/24/2023 CBC/C OMPLE TE BLD COUNT W/DIF F white blood cells 9.7 x10'3 /uL 4.2-10 .8 Not Available [facility] (Lab) [address] [place], [address], 01/24/2023 18:02:21 01/25/20 23 01/24/2023 CBC/C OMPLE TE BLD COUNT W/DIF F red blood cells 4.80 x10'6 /uL 4.10-5 .80 Not Available [facility] (Lab) [address] [place], [address], 01/24/2023 18:02:21 01/25/20 23 01/24/2023 CBC/C OMPLE TE BLD COUNT W/DIF F hemoglobin 13.3 g/dL 13.2-1 7.0 Not Available [facility] (Lab) [address] [place], [address], 01/24/2023 18:02:21 01/25/20 23 01/24/2023 CBC/C OMPLE TE BLD COUNT W/DIF F hematocrit 42.4 % 39.3-5 0.0 Not Available [facility] (Lab) [address] [place], [address], 01/24/2023 18:02:21 01/25/20 23 01/24/2023 CBC/C OMPLE TE BLD COUNT W/DIF F mean red cell volume 88.3 fL 80.0-9 7.0 Not Available [facility] (Lab) [address] [place], [address], 01/24/2023 18:02:21 01/25/20 23 01/24/2023 CBC/C OMPLE TE BLD COUNT W/DIF F mean red cell hemoglobin 27.7 pg 27.0-3 3.0 Not Available [facility] (Lab) [address] [place], [address], 01/24/2023 18:02:21 01/25/20 23 01/24/2023 CBC/C OMPLE TE BLD COUNT W/DIF F mean RBC HGB concentratio n 31.4 g/dL 31.0-3 6.0 Not Available [facility] (Lab) [address] [place], [address], 01/24/2023 18:02:21 01/25/2001/24/2023 CBC/C OMPLE TE BLD COUNT W/DIF F red cell distribution width 12.9 % 11.8-1 5.5 Not Available [facility] (Lab) [address] [place], [address], 01/24/2023 18:02:21 01/25/20 23 01/24/2023 CBC/C OMPLE TE BLD COUNT W/DIF F platelets 355 x10'3 /uL 150-40 0 Not Available [facility] (Lab) [address] [place], [address], 01/24/2023 18:02:21 01/25/20 23 01/24/2023 CBC/C OMPLE TE BLD COUNT W/DIF F mean platelet volume 9.6 fL 9.0-12 .4 Not Available [facility] (Lab) [address] [place], [address], 01/24/2023 18:02:21 01/25/20 23 01/24/2023 CBC/C OMPLE TE BLD COUNT W/DIF F neutrophils 48.7 % 39.0-7 2.0 Not Available [facility] (Lab) [address] [place], [address], 01/24/2023 18:02:21 01/25/2001/24/2023 CBC/C OMPLE TE BLD COUNT W/DIF F lymphocytes 38.1 % 16.0-4 7.0 Not Available [facility] (Lab) [address] [place], [address], 01/24/2023 18:02:21 01/25/20 23 01/24/2023 CBC/C OMPLE TE BLD COUNT W/DIF F monocytes 8.4 % 5.0-12 .0 Not Available [facility] (Lab) [address] [place], [address], 01/24/2023 18:02:21 01/25/2001/24/2023 CBC/C OMPLE TE BLD COUNT W/DIF F eosinophils 3.8 % 1.0-7. 0 Not Available [facility] (Lab) [address] [place], [address], 01/24/2023 18:02:21 01/25/2001/24/2023 CBC/C OMPLE TE BLD COUNT W/DIF F basophils 0.6 % 0.0-2. 0 Not Available [facility] (Lab) [address] [place], [address], 01/24/2023 18:02:21 01/25/2001/24/2023 CBC/C OMPLE TE BLD COUNT W/DIF F immature granulocytes 0.4 % 0.00-0 .50 Not Available [facility] (Lab) [address] [place], [address], 01/24/2023 18:02:21 01/25/2001/24/2023 CBC/C OMPLE TE BLD COUNT W/DIF F neutrophils, absolute count 4.71 x10'3 /uL 1.5-8. 0 Not Available [facility] (Lab) [address] [place], [address], 01/24/2023 18:02:21 01/25/2001/24/2023 CBC/C OMPLE TE BLD COUNT W/DIF F lymphocytes, absolute count 3.69 x10'3 /uL 1.07-3 .43 high Not Available [facility] (Lab) [address] [place], [address], 01/24/2023 18:02:21 01/25/2001/24/2023 CBC/C OMPLE TE BLD COUNT W/DIF F monocytes, absolute count 0.81 x10'3 /uL 0.29-0 .99 Not Available [facility] (Lab) [address] [place], [address], 01/24/2023 18:02:21 01/25/20 23 01/24/2023 CBC/C OMPLE TE BLD COUNT W/DIF F eosinophils, absolute count 0.37 x10'3 /uL 0.02-0 .53 Not Available [facility] (Lab) [address] [place], [address], 01/24/2023 18:02:21 01/25/20 23 01/24/2023 CBC/C OMPLE TE BLD COUNT W/DIF F basophils, absolute count 0.06 x10'3 /uL 0.01-0 .08 Not Available [facility] (Lab) [address] [place], [address], 01/24/2023 18:02:21 01/25/20 23 01/24/2023 CBC/C OMPLE TE BLD COUNT W/DIF F immature granulocytes ,absolute 0.04 x10'3 /uL 0.00-0 .05 Not Available [facility] (Lab) [address] [place], [address], 01/24/2023 18:02:21 01/25/20 23 01/24/2023 CBC/C OMPLE TE BLD COUNT W/DIF F nucleated red blood cells 0.0 % -0 Not Available [facility] (Lab) [address] [place], [address], 01/24/2023 18:02:21 01/25/2001/24/2023 CBC/C OMPLE TE BLD COUNT W/DIF F NRBC# 0.00 x10'3 /uL Not Available [facility] (Lab) [address] [place], [address], 01/24/2023 18:02:21 01/25/20 23 01/24/2023 LIPID PANEL cholesterol 129 mg/dL 140-19 9 low NIH CHLOE NSUS RECOM MENDA TION FOR GODWIN STERO L: ADULT CHILD LOW RISK: <200 <170 BORDE RLINE : <200- 239 ----- HIGH RISK: >240 >200 Not Available [facility] (Lab) [address] [place], [address], 01/24/2023 18:11:29 01/25/2001/24/2023 LIPID PANEL triglyceride s 128 mg/dL 0-150 NIH CHLOE NSUS REPOR T RECOM MENDA TION FOR TRIGL YCERI ASHER: ADULT CHILD LOW RISK: <150 ----- BODER LINE: 150-1 99 ----- HIGH RISK: >200 ----- Not Available [facility] (Lab) [address] [place], [address], 01/24/2023 18:11:29 01/25/2001/24/2023 LIPID PANEL HDL cholesterol 26 mg/dL 40- low Not Available [facility] (Lab) [address] [place], [address], 01/24/2023 18:11:29 01/25/2001/24/2023 LIPID PANEL LDL cholesterol, calculated 77 mg/dL [...] WILL NOT BE REPOR SEAN. Not Available [facility] (Lab) [address] [place], [address], 01/24/2023 18:11:29 01/25/20 23 01/24/2023 COMPR EHENS МАРИНА METAB OLIC PANEL sodium 140 mmol/ L 137-14 5 Not Available [facility] (Lab) [address] [place], [address], 01/24/2023 18:11:34 01/25/20 23 01/24/2023 COMPR EHENS МАРИНА METAB OLIC PANEL potassium 4.6 mmol/ L 3.5-5. 1 Not Available [facility] (Lab) [address] [place], [address], 01/24/2023 18:11:34 01/25/20 23 01/24/2023 COMPR EHENS МАРИНА METAB OLIC PANEL chloride 102 mmol/ L 98-107 Not Available [facility] (Lab) [address] [place], [address], 01/24/2023 18:11:34 01/25/20 23 01/24/2023 COMPR EHENS МАРИНА METAB OLIC PANEL carbon dioxide 25 mmol/ L 22-30 Not Available [facility] (Lab) [address] [place], [address], 01/24/2023 18:11:34 01/25/20 23 01/24/2023 COMPR EHENS МАРИНА METAB OLIC PANEL anion gap 17.6 mmol/ L 14-22 Not Available [facility] (Lab) [address] [place], [address], 01/24/2023 18:11:34 01/25/20 23 01/24/2023 COMPR EHENS МАРИНА METAB OLIC PANEL glucose 121 mg/dL 70-99 high Not Available [facility] (Lab) [address] [place], [address], 01/24/2023 18:11:34 01/25/20 23 01/24/2023 COMPR EHENS МАРИНА METAB OLIC PANEL BUN 17 mg/dL 8-19 Not Available [facility] (Lab) [address] [place], [address], 01/24/2023 18:11:34 06/01/01/24/2023 COMPR EHENS МАРИНА METAB OLIC PANEL creatinine 0.79 mg/dL 0.66-1 .25 Not Available [facility] (Lab) [address] [place], [address], 01/24/2023 18:11:34 01/25/20 23 01/24/2023 COMPR EHENS МАРИНА METAB OLIC PANEL GFR >60 Refer ence Range : [place] ge GFR Healt hy Adult : >60 [...] or ethni c subgr oups, such as Hisor nics. Outsi de the valid ated albino [...] calcu lator is avail able on the [facility] websi te: https ://stu w.kid dakota.o rg/pr ofess ional s/kdo qi/gf r_cal culat or Not Available [facility] (Lab) [address] [place], [address], 01/24/2023 18:11:34 01/25/2001/24/2023 COMPR EHENS МАРИНА METAB OLIC PANEL alkaline phosphatase 79 U/L 38-126 Not Available [facility] (Lab) [address] [place], [address], 01/24/2023 18:11:34 01/25/20 23 01/24/2023 COMPR EHENS МАРИНА METAB OLIC PANEL alanine aminotransfe rase 50 U/L 0-50 Not Available [facility] (Lab) [address] [place], [address], 01/24/2023 18:11:34 01/25/20 23 01/24/2023 COMPR EHENS МАРИНА METAB OLIC PANEL aspartate aminotransfe rase 42 U/L 15-46 Not Available [facility] (Lab) [address] [place], [address], 01/24/2023 18:11:34 01/25/20 23 01/24/2023 COMPR EHENS МАРИНА METAB OLIC PANEL bilirubin, total 0.60 mg/dL 0.20-1 .30 Not Available [facility] (Lab) [address] [place], [address], 01/24/2023 18:11:34 01/25/20 23 01/24/2023 COMPR EHENS МАРИНА METAB OLIC PANEL calcium 9.6 mg/dL 8.4-10 .2 Not Available [facility] (Lab) [address] [place], [address], 01/24/2023 18:11:34 01/25/20 23 01/24/2023 COMPR EHENS МАРИНА METAB OLIC PANEL total protein 7.7 g/dL 6.3-8. 2 Not Available [facility] (Lab) [address] [place], [address], 01/24/2023 18:11:34 01/25/20 23 01/24/2023 COMPR EHENS МАРИНА METAB OLIC PANEL albumin 4.1 g/dL 3.4-5. 0 Not Available [facility] (Lab) [address] [place], [address], 01/24/2023 18:11:34 01/25/20 23 01/24/2023 COMPR EHENS МАРИНА METAB OLIC PANEL globulin 3.6 g/dL 2.6-4. 2 Not Available [facility] (Lab) [address] [place], [address], 01/24/2023 18:11:34 01/25/20 23 01/24/2023 COMPR EHENS МАРИНА METAB OLIC PANEL A/G ratio 1.1 ratio 1.0-2. 0 Not Available [facility] (Lab) [address] [place], [address], 01/24/2023 18:11:34 01/25/20 23 01/24/2023 T4 FREE free T4 1.30 NG/dL 0.78-2 .19 Not Available [facility] (Lab) [address] [place], [address], 01/24/2023 19:05:42 01/25/20 23 01/24/2023 T3 FREE free T3 4.0 pg/mL 2.77-5 .27 Not Available [facility] (Lab) [address] [place], [address], 01/24/2023 19:05:46 01/25/20 23 01/24/2023 TSH thyroid-stim ulating hormone 3.390 uIU/m L 0.465- 4.680 Not Available [facility] (Lab) [address] [place], [address], 01/24/2023 19:05:53 01/25/20 23 01/24/2023 HEMOG LOBIN A1C HA1C 5.7 % 4.0-6. 0 Diabe soila Scree grant Crite cathleen: <5.7% Consi stent with absen ce of diabe soila 5.7-6 .4% Consi stent with incre ased risk for diabe soila (pred iabet es) >OR=6 .5% Consi stent with diabe soila REFER ENCE: Diabe soila Care 2016, 39(Bradley ppl.1 ):s13 -s22 Not Available [facility] (Lab) [address] [place], [address], 01/24/2023 19:59:34 07/12/2007/12/2023 CBC/C OMPLE TE BLD COUNT W/DIF F white blood cells 8.0 x10'3 /uL 4.2-10 .8 Not Available [facility] (Lab) [address] [place], [address], 07/12/2023 18:44:51 07/12/2007/12/2023 CBC/C OMPLE TE BLD COUNT W/DIF F red blood cells 4.48 x10'6 /uL 4.10-5 .80 Not Available [facility] (Lab) [address] [place], [address], 07/12/2023 18:44:51 07/12/2007/12/2023 CBC/C OMPLE TE BLD COUNT W/DIF F hemoglobin 12.7 g/dL 13.2-1 7.0 low Not Available [facility] (Lab) [address] [place], [address], 07/12/2023 18:44:51 07/12/2007/12/2023 CBC/C OMPLE TE BLD COUNT W/DIF F hematocrit 40.6 % 39.3-5 0.0 Not Available [facility] (Lab) [address] [place], [address], 07/12/2023 18:44:51 07/12/20 23 07/12/2023 CBC/C OMPLE TE BLD COUNT W/DIF F mean red cell volume 90.6 fL 80.0-9 7.0 Not Available [facility] (Lab) [address] [place], [address], 07/12/2023 18:44:51 07/12/20 23 07/12/2023 CBC/C OMPLE TE BLD COUNT W/DIF F mean red cell hemoglobin 28.3 pg 27.0-3 3.0 Not Available [facility] (Lab) [address] [place], [address], 07/12/2023 18:44:51 07/12/20 23 07/12/2023 CBC/C OMPLE TE BLD COUNT W/DIF F mean RBC HGB concentratio n 31.3 g/dL 31.0-3 6.0 Not Available [facility] (Lab) [address] [place], [address], 07/12/2023 18:44:51 07/12/2007/12/2023 CBC/C OMPLE TE BLD COUNT W/DIF F red cell distribution width 12.9 % 11.8-1 5.5 Not Available [facility] (Lab) [address] [place], [address], 07/12/2023 18:44:51 07/12/20 23 07/12/2023 CBC/C OMPLE TE BLD COUNT W/DIF F platelets 339 x10'3 /uL 150-40 0 Not Available [facility] (Lab) [address] [place], [address], 07/12/2023 18:44:51 07/12/20 23 07/12/2023 CBC/C OMPLE TE BLD COUNT W/DIF F mean platelet volume 9.8 fL 9.0-12 .4 Not Available [facility] (Lab) [address] [place], [address], 07/12/2023 18:44:51 07/12/20 23 07/12/2023 CBC/C OMPLE TE BLD COUNT W/DIF F neutrophils 45.2 % 39.0-7 2.0 Not Available [facility] (Lab) [address] [place], [address], 07/12/2023 18:44:51 07/12/2007/12/2023 CBC/C OMPLE TE BLD COUNT W/DIF F lymphocytes 40.3 % 16.0-4 7.0 Not Available [facility] (Lab) [address] [place], [address], 07/12/2023 18:44:51 07/12/20 23 07/12/2023 CBC/C OMPLE TE BLD COUNT W/DIF F monocytes 9.1 % 5.0-12 .0 Not Available [facility] (Lab) [address] [place], [address], 07/12/2023 18:44:51 07/12/2007/12/2023 CBC/C OMPLE TE BLD COUNT W/DIF F eosinophils 4.6 % 1.0-7. 0 Not Available [facility] (Lab) [address] [place], [address], 07/12/2023 18:44:51 07/12/2007/12/2023 CBC/C OMPLE TE BLD COUNT W/DIF F basophils 0.6 % 0.0-2. 0 Not Available [facility] (Lab) [address] [place], [address], 07/12/2023 18:44:51 07/12/2007/12/2023 CBC/C OMPLE TE BLD COUNT W/DIF F immature granulocytes 0.2 % 0.00-0 .50 Not Available [facility] (Lab) [address] [place], [address], 07/12/2023 18:44:51 07/12/2007/12/2023 CBC/C OMPLE TE BLD COUNT W/DIF F neutrophils, absolute count 3.62 x10'3 /uL 1.5-8. 0 Not Available [facility] (Lab) [address] [place], [address], 07/12/2023 18:44:51 07/12/20 23 07/12/2023 CBC/C OMPLE TE BLD COUNT W/DIF F lymphocytes, absolute count 3.24 x10'3 /uL 1.07-3 .43 Not Available [facility] (Lab) [address] [place], [address], 07/12/2023 18:44:51 07/12/20 23 07/12/2023 CBC/C OMPLE TE BLD COUNT W/DIF F monocytes, absolute count 0.73 x10'3 /uL 0.29-0 .99 Not Available [facility] (Lab) [address] [place], [address], 07/12/2023 18:44:51 07/12/20 23 07/12/2023 CBC/C OMPLE TE BLD COUNT W/DIF F eosinophils, absolute count 0.37 x10'3 /uL 0.02-0 .53 Not Available [facility] (Lab) [address] [place], [address], 07/12/2023 18:44:51 07/12/20 23 07/12/2023 CBC/C OMPLE TE BLD COUNT W/DIF F basophils, absolute count 0.05 x10'3 /uL 0.01-0 .08 Not Available [facility] (Lab) [address] [place], [address], 07/12/2023 18:44:51 07/12/20 23 07/12/2023 CBC/C OMPLE TE BLD COUNT W/DIF F immature granulocytes ,absolute 0.02 x10'3 /uL 0.00-0 .05 Not Available [facility] (Lab) [address] [place], [address], 07/12/2023 18:44:51 07/12/20 23 07/12/2023 CBC/C OMPLE TE BLD COUNT W/DIF F nucleated red blood cells 0.0 % -0 Not Available [facility] (Lab) [address] [place], [address], 07/12/2023 18:44:51 07/12/20 23 07/12/2023 CBC/C OMPLE TE BLD COUNT W/DIF F NRBC# 0.00 x10'3 /uL Not Available [facility] (Lab) [address] [place], [address], 07/12/2023 18:44:51 07/12/20 23 07/12/2023 COMPR EHENS МАРИНА METAB OLIC PANEL sodium 139 mmol/ L 137-14 5 Not Available [facility] (Lab) [address] [place], [address], 07/12/2023 19:03:50 07/12/20 23 07/12/2023 COMPR EHENS МАРИНА METAB OLIC PANEL potassium 4.0 mmol/ L 3.5-5. 1 Not Available [facility] (Lab) [address] [place], [address], 07/12/2023 19:03:50 07/12/20 23 07/12/2023 COMPR EHENS МАРИНА METAB OLIC PANEL chloride 104 mmol/ L 98-107 Not Available [facility] (Lab) [address] [place], [address], 07/12/2023 19:03:50 07/12/20 23 07/12/2023 COMPR EHENS МАРИНА METAB OLIC PANEL carbon dioxide 24 mmol/ L 22-30 Not Available [facility] (Lab) [address] [place], [address], 07/12/2023 19:03:50 07/12/20 23 07/12/2023 COMPR EHENS МАРИНА METAB OLIC PANEL anion gap 15.0 mmol/ L 14-22 Not Available [facility] (Lab) [address] [place], [address], 07/12/2023 19:03:50 07/12/20 23 07/12/2023 COMPR EHENS МАРИНА METAB OLIC PANEL glucose 160 mg/dL 70-99 high Not Available [facility] (Lab) [address] [place], [address], 07/12/2023 19:03:50 07/12/20 23 07/12/2023 COMPR EHENS МАРИНА METAB OLIC PANEL BUN 13 mg/dL 8-19 Not Available [facility] (Lab) [address] [place], [address], 07/12/2023 19:03:50 07/12/20 23 07/12/2023 COMPR EHENS МАРИНА METAB OLIC PANEL creatinine 0.66 mg/dL 0.66-1 .25 Not Available [facility] (Lab) [address] [place], [address], 07/12/2023 19:03:50 07/12/20 23 07/12/2023 COMPR EHENS МАРИНА METAB OLIC PANEL GFR >60 Refer ence Range : [place] ge GFR Healt hy Adult : >60 [...] or ethni c subgr oups, such as Hisor nics. Outsi de the valid ated albino [...] calcu lator is avail able on the F websi te: https ://stu w.chelsie duncan.o ofe/pr ofess ional s/kdo qi/gf r_cal culat or Not Available [facility] (Lab) [address] [place], [address], 07/12/2023 19:03:50 07/12/20 23 07/12/2023 COMPR EHENS МАРИНА METAB OLIC PANEL alkaline phosphatase 73 U/L 38-126 Not Available [facility] (Lab) [address] [place], [address], 07/12/2023 19:03:50 07/12/20 23 07/12/2023 COMPR EHENS МАРИНА METAB OLIC PANEL alanine aminotransfe rase 44 U/L 0-50 Not Available [facility] (Lab) [address] [place], [address], 07/12/2023 19:03:50 07/12/20 23 07/12/2023 COMPR EHENS МАРИНА METAB OLIC PANEL aspartate aminotransfe rase 51 U/L 15-46 high Not Available [facility] (Lab) [address] [place], [address], 07/12/2023 19:03:50 07/12/20 23 07/12/2023 COMPR EHENS МАРИНА METAB OLIC PANEL bilirubin, total 0.60 mg/dL 0.20-1 .30 Not Available [facility] (Lab) [address] [place], [address], 07/12/2023 19:03:50 07/12/20 23 07/12/2023 COMPR EHENS МАРИНА METAB OLIC PANEL calcium 9.2 mg/dL 8.4-10 .2 Not Available [facility] (Lab) [address] [place], [address], 07/12/2023 19:03:50 07/12/20 23 07/12/2023 COMPR EHENS МАРИНА METAB OLIC PANEL total protein 7.6 g/dL 6.3-8. 2 Not Available [facility] (Lab) [address] [place], [address], 07/12/2023 19:03:50 07/12/20 23 07/12/2023 COMPR EHENS МАРИНА METAB OLIC PANEL albumin 4.0 g/dL 3.4-5. 0 Not Available [facility] (Lab) [address] [place], [address], 07/12/2023 19:03:50 07/12/20 23 07/12/2023 COMPR EHENS МАРИНА METAB OLIC PANEL globulin 3.6 g/dL 2.6-4. 2 Not Available [facility] (Lab) [address] [place], [address], 07/12/2023 19:03:50 07/12/20 23 07/12/2023 COMPR EHENS МАРИНА METAB OLIC PANEL A/G ratio 1.1 ratio 1.0-2. 0 Not Available [facility] (Lab) [address] [place], [address], 07/12/2023 19:03:50 07/12/20 23 07/12/2023 LIPID PANEL cholesterol 137 mg/dL 140-19 9 low NIH CHLOE NSUS RECOM MENDA TION FOR GODWIN STERO L: ADULT CHILD LOW RISK: <200 <170 BORDE RLINE : <200- 239 ----- HIGH RISK: >240 >200 Not Available [facility] (Lab) [address] [place], [address], 07/12/2023 19:03:54 07/12/20 23 07/12/2023 LIPID PANEL triglyceride s 160 mg/dL 0-150 high NIH CHLOE NSUS REPOR T RECOM MENDA TION FOR TRIGL YCERI ASHER: ADULT CHILD LOW RISK: <150 ----- BODER LINE: 150-1 99 ----- HIGH RISK: >200 ----- Not Available [facility] (Lab) [address] [place], [address], 07/12/2023 19:03:54 07/12/20 23 07/12/2023 LIPID PANEL HDL cholesterol 22 mg/dL 40- low Not Available [facility] (Lab) [address] [place], [address], 07/12/2023 19:03:54 07/12/20 23 07/12/2023 LIPID PANEL [...] WILL NOT BE REPOR SEAN. Not Available [facility] (Lab) [address] [place], [address], 07/12/2023 19:03:54 07/12/2007/12/2023 HEMOG LOBIN A1C HA1C 5.1 % 4.0-6. 0 Diabe soila Memo burns Crite cathleen: <5.7% Consi stent with absen ce of diabe soila 5.7-6 .4% Consi stent with incre ased risk for diabe soila (pred iabet es) >OR=6 .5% Consi stent with diabe soila REFER ENCE: Diabe soila Care 2016, 39(Bradley ppl.1 ):s13 -s22 Not Available [facility] (Lab) [address] [place], [address], 07/12/2023 20:27:25 03/06/20 23 03/06/2023 LDCT, chest , for lung cance r memo burns No observ ation record ed. [email or web address] [facility] [address], [place], [address], 04/04/2023 16:52:19 Result Notes None recorded. Problems Name Problem SNOMED Code Status Onset Date Resolution Date Notes Provider Name and Address Organization Details Recorded Time Diabetes mellitus 42320832 Active 2016 Not Available [facility] 23:26:20 Dyslipidemia 557948288 Active 2017 Not Available [facility] 3 23:26:20 Morbid obesity 119226727 Active 2018 Not Available [facility] 3 23:26:20 Osteoarthriti s of knee 273890848 Active 2018 Not Available [facility] 23:26:20 Chondromalaci a of patella 66329519 Active 2018 Not Available [facility] 3 23:26:20 Sleep apnea 31763991 Active 2020 Not Available [facility] 3 23:26:20 Type 2 diabetes mellitus without complication 902545513 Active 2021 Not Available [facility] 3 23:26:20 Weight gain 1077867 Active 2021 Not Available [facility] 3 23:26:20 Renewal of prescription Active 2021 Not Available [facility] 3 23:26:20 Obesity 801512605 Active 2021 Not Available [facility] 3 23:26:20 Rectal hemorrhage 64641324 Active 2021 Not Available [facility] 3 23:26:20 Notes:Medical History: 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 Procedures Surgical History Date Name Laterality Status Provider Name and Address Organization Details Recorded Time Orthopedic Surgery completed Not Available [facility] 10/24/2022 01:05:40 Excisions - Specify completed Not Available [facility] 10/24/2022 01:05:40 Imaging Results None recorded. Procedure [...] completed Not Available Not Available Not Available [employer] Ultra Test strips use to test blood glucose 3-4 times daily active Not Available Not Available No t Available Kenalog 10 mg/mL suspension for injection In office injection administe red by the provider 01/[address] [facility]: 0003- 0494- 20 Not Available Not Available [...] completed Not Available Not Available Not Available [place] 3 Fish Oil 07/14 completed Not Available Not Available Not Available lidocaine (PF) 10 mg/mL (1 %) injection solution In office injection administe red by the provider 01/[address] [facility]: [phone]- [phone] Not Available Not Available [...] completed Not Available Not Available Not Available [employer] U-300 Insulin 300 unit/mL (1.5 mL) [...] Heart rate Body temperature Body weight Systolic And Diastolic Provider Name and Address Organization Details Last Updated DateTime 3 42.4 kg/m2 180.34 cm 79 /min 97.2 [degF] 161809. 08 g 136/80 mm[Hg] Not Available [facility] 3 01:14:52 Date Recorded Body height Body mass index (BMI) Body weight Body temperature Heart rate Systolic And Diastolic Provider Name and Address Organization Details Last Updated DateTime 3 180.34 cm 44.5 kg/m2 913764. 97 g 97.3 [degF] 97 /min 138/82 mm[Hg] TARYN Banks [facility] [employer] 3 12:32:51 Date Recorded Body height Body mass index (BMI) Body weight Body temperature Heart rate Systolic And Diastolic Provider Name and Address Organization Details Last Updated DateTime 3 180.34 cm 42.5 kg/m2 234296. 67 g 98.4 [degF] 91 /min 140/78 mm[Hg] Sara vega RN [facility] [employer] [facility] 3 11:56:08 Date Recorded Body height Body mass index (BMI) Body weight Body temperature Heart rate Systolic And Diastolic Provider Name and Address Organization Details Last Updated DateTime 3 180.34 cm 41.6 kg/m2 966544. 53 g 97.6 [degF] 90 /min 134/82 mm[Hg] Kayla Pérez MA [facility] 3 11:43:14 Date Recorded Body mass index (BMI) Body height Oxygen saturation Heart rate Body temperature Body weight Systolic And Diastolic Provider Name and Address Organization Details Last Updated DateTime 2 41.6 kg/m2 180.34 cm 98 % 85 /min 98.9 [degF] 333383. 53 g 138/80 mm[Hg] Not Available [employer] 3 01:14:51 Social History Question Answer Notes LastModified by Organizat ion Details LastModified Time Tobacco Smoking Status Former Smoker quit 2014 TARYN Jain, [facility] 04/04/2023 11:48:42 Do You Have An Advance Directive? No [id number] Information not available 10/24/2022 Do You Wear A Helmet When Biking? No Information not available 04/04/2023 What Is Your Level Of Caffeine Consumption? Occasional [id number] Information not available 10/24/2022 How Much Tobacco Do You Chew? None [id number].[id number] Information not available 10/24/2022 In The 14 [...] Type Of Diet Are You Following? DIABETIC [id number] Information not available 10/24/2022 Which Illicit Or Recreational Drugs Have You Used? None Information not available 04/04/2023 What Is The Highest Grade Or Level Of School You Have Completed Or The Highest Degree You Have Received? [id number] Information not available 04/04/2023 Have There Been [...] Do You Have A Medical Power Of Fisheries Inspector? No Information not available 04/04/2023 What Was The Date Of Your Most Recent Tobacco Screening? 07/04/2023 [email or web address] Information not available 07/04/2023 Do You Have Any Pets? No Information not available 04/04/2023 What Is Your Relationship Status? Single [id number] Information not available 10/24/2022 Do You Use [...] How Much Tobacco Do You Smoke? No [id number].[id number] Information not available 10/24/2022 Do You Use [...] is your level of alcohol consumption? None MIGRATION.[id number] Information not available 10/24/2022 Do you or have you ever used smokeless tobacco? Never used smokeless tobacco MIGRATION.[id number] Information not available 10/24/2022 Are you currently employed? Yes [email or web address] Information not available 04/04/2023 What is your occupation? [employer] Information not available 04/04/2023 Do you or have you ever used e-cigarettes or vape? Never used electronic cigarettes Information not available 04/04/2023 What is your exercise level? Moderate MIGRATION.[id number] Information not available 10/24/2022 Mental Status Question Answer Note LastModified by Organization D etails LastModified Time Do you feel stressed (tense, restless, nervous, or anxious, or unable to sleep at night)? [id number] Information not available 04/04/2023 Family History Relationship Description Onset Age of this Age Resolved Age Notes LastModified by Organization Details LastModified Time Mother Diabetes mellitus [id number] Not available 10/24/2022 01:05:47 Brother Diabetes mellitus [id number].493 [id number] Not available 10/24/2022 01:05:47 Maternal Aunt Diabetes mellitus [id number].084 [id number] Not available 10/24/2022 01:05:47 Father Hypertensive disorder [id number].877 [id number] Not available 10/24/2022 01:05:47 Father Heart disease [id number].139 [id number] Not available 10/24/2022 01:05:47 Unspecified Relation Family [...] HEARING PROBLEMS N MUMPS N SHINGLES N DEPRESSION (INCLUDING POST ) N BOWEL PROBLEMS N STROKE/TIA N ULCERS N BENIGN PROSTATIC HYPERPLASIA N MEASLES N HYPOTENSION N MYOCARDIAL INFARCTION N OBESITY Y GERD/NAUSEA N ANEURYSM N URINARY/BLADDER/KIDNEY PROBLEMS N INPATIENT PSYCH CARE N CORONARY ARTERY DISEASE (CAD) N ADDICTION CONCERNS N Impotence N ENDOMETRIOSIS N USE OF BLOOD THINNERS N SKIN [...] N TUBERCULOSIS N GLAUCOMA N DIVERTICULITIS N SLEEP APNEA N CHICKENPOX N INFECTIOUS DISEASE N PROSTATE N HEART ARRHYTHMIA N INSOMNIA N HIGH CHOLESTEROL / HYPERLIPIDEMIA Y EYE PROBLEMS N HYPERTHYROIDISM N NEUROLOGICAL PROBLEMS N EDEMA N CHRONIC PAIN SYNDROME N HYPOTHYROIDISM N CAROTID BLOCKAGE N CONSTIPATION N BACK / NECK PROBLEMS N HAVE YOU BEEN HOSPITALIZED OR SEEN IN [facility] ER IN THE PAST YEAR ? N ATHEROSCLEROSIS N BREAST PROBLEMS N DIALYSIS N ECZEMA N OSTEOPOROSIS N ARTHRITIS Y APPENDICITIS N DIABETES, TYPE Y BAD TEETH N ENT N HEARTBURN / REFLUX N AUTISM SPECTRUM DISORDER (ASD) N HEPATITIS / LIVER DISEASE N PULMONARY DISEASE N GOUT N SLEEP DISORDER N ALZHEIMER'S DISEASE N Brain Problems N DEMENTIA N HERPES N SEIZURES/EPILEPSY N HEADACHES/MIGRAINES N VASCULAR DISEASE N PACEMAKER N Blood Disorder N DIZZINESS N HEART DISEASE/HEART PROBLEMS N KIDNEY DISEASE N MULTIPLE SCLEROSIS N CANCER: SPECIFY N CARDIAC ARRHYTHMIA N ANESTHESIA COMPLICATIONS N ATRIAL FIBRILLATION N Gall Stones N PULMONARY EMBOLISM N AUTOIMMUNE DISEASE N Immunizations Vaccine Type Date Status Note Provider Nam e and Address Organization Details Recorded Time COVID-19, mRNA, LNP-S, PF, 30 mcg/0.3 mL dose 09/15/2021 completed Not Available [facility] 3 23:26:21 COVID-19, mRNA, LNP-S, PF, 30 mcg/0.3 mL dose 01/30/2021 completed Not Available [facility] 3 23:26:21 COVID-19, mRNA, LNP-S, PF, 30 mcg/0.3 mL dose 01/09/2021 completed Not Available [facility] 3 23:26:21 Past Encounters Encounter ID Performer Location Encounter Start Date Encounter Closed Date Diagnosis/Indication Diagnosis SNOMED-CT Code Diagnosis ICD10 Code Diagnosis IMO Codes Diagnosis Note [id number] [facility]is [facility] [place] [facility] [place] [address] [address] 10/27/2020 00:00:00 10/27/2020 20:37:13 [id number] [facility]is [facility] [place] [address] [place] [address] [place] [address] 02/14/2021 00:00:00 02/21/2021 22:27:46 [id number] Refugio Vance [facility] [address] [address] 02/22/2021 00:00:00 02/22/2021 11:23:48 [id number] Refugio Vance MD [facility] [address] [address] 03/22/2021 00:00:00 03/22/2021 11:19:15 [id number] Refugio Vance MD [facility] [address] [address] 05/23/2021 00:00:00 05/23/2021 14:28:39 [id number] Alexis Laura MD [facility] Internal [facility] [place] [address] [place] [address] [place] [address] 06/13/2021 00:00:00 06/16/2021 11:37:30 [id number] Alexis Laura MD [facility] Internal [facility] [place] [address] [place] [address] [place] [address] 11/21/2021 00:00:00 11/21/2021 21:21:44 [id number] Alexis Laura MD [facility] Internal Med [place] [address] [place] [address] [place] [address] 12/19/2021 00:00:00 01/07/2022 17:24:28 [id number] Alexis Laura MD [facility] Internal Med [place] [address] [place] [address] [place] [address] 01/16/2022 00:00:00 01/22/2022 13:05:04 [id number] Alexis Laura MD [facility] Internal Med [place] [address] [place] [address] [place] [address] 02/13/2022 00:00:00 02/13/2022 21:26:12 [id number] Alexis Laura MD [facility] Internal Med [place] [address] [place] [address] [place] [address] 04/24/2022 00:00:00 06/17/2022 17:43:58 [id number] Alexis Laura MD [facility] Internal Med [place] [address] [place] [address] [place] [address] 06/05/2022 00:00:00 06/10/2022 15:42:13 [id number] Alexis Laura MD [facility] Internal Med [facility] [address] [address] 07/31/2022 00:00:00 08/27/2022 12:18:03 [id number] Alexis Laura MD [facility] Internal Med [place] [address] [place] [address] [place] [address] 10/04/2022 00:00:00 10/04/2022 14:04:18 [id number] Alexis Laura MD [facility] Internal Med [facility] [address] [address] 02/25/2023 11:30:06 02/25/2023 12:58:29 Adult health examination 598847931 Z00.00 Depression screening 171 329269 Z13.31 neg Body mass index 40+ - severely obese 252197820 Z68.41 Dyslipidemia 773492189 E 78.5 Sleep apnea 22315148 G47 .30 Diabetes mellitus 686269 09 E11.9 Type 2 geoffrey betes mellitus without complication 892772935 E11.9 Obesity 577665976 E66.9 [id number] Alexis Laura MD [facility] Internal Med [place] [address] [place] [address] [place] [address] 04/04/2023 11:48:34 04/04/2023 12:35:18 Dyslipidemia 830080840 E78.5 Sleep apnea 09636261 G47 .30 Morbid obesity 302069492 E66.01 Type 2 geoffrey betes mellitus without complication 408768528 E11.9 [id number] Alexis Laura MD [facility] Internal Med [place] [address] [place] [address] [place] [address] 07/04/2023 11:34:13 07/04/2023 12:50:30 Dyslipidemia 955914902 E78.5 Diabetes mellitus 078980 09 E11.9 Sleep apnea 44624997 G47 .30 Health Concerns Section Related Observation LastModified by Organization Tita luna LastModified Time None Recorded Concern Status LastModified by Organization Details LastModified Time None Recorded Advance Directives Directive N: Payers Insurance Date Sequence Insurance Name Policy Number Policy Harris Covered Member ID Harris Member ID Guarantor Name 07/08/2023 1 [place] [id number] Billy Butler [id number] Billy Butler 07/03/2023 [facility] Billy Butler SELF SELF Billy Bulter Notes Date Note Type Note Provider Name and Address Organization Details Recorded Time 02/25/2023 text/html Diabetes no polyphagia polydipsia sugars have been doing [place] [facility] completed obesity try to lose weight Alexis Laura MD [address] [employer], [place], [address], [employer] 03/09/2023 17:00:58 04/04/2023 text/html Dyslipidemia could do better on diet sleep apnea compliant morbid obesity trying to lose weight diabetes no polyphagia no polydipsia is taking his medication as prescribed Alexis Laura MD [address], [place], [address], [employer] 06/23/2023 18:17:54 07/04/2023 text/html Dyslipidemia could do better on diet sleep apnea compliant morbid obesity trying to lose weight diabetes no polyphagia no polydipsia is taking his medication as prescribed Alexis Laura MD [address], [place], [address], [employer] 07/05/2023 14:15:47
[2025-08-17 10:01] LABS: Hematocrit 42.6 % (42.0-52.0); Hemoglobin 13.5 g/dL (14.0-18.0); Immature Granulocyte Percent A 0.3 % (0-0.5); Lymphocytes Absolute Auto 3.10 K/mm3 (0.9-3.2); Mean Corpuscular HGB Conc 31.7 g/dl (32-36); Mean Corpuscular Hemoglobin 27.6 pg (26-34); Mean Corpuscular Volume 87.1 fl (80-100); Nucleated Red Blood Cells Absolute Auto 0.000 K/mm3 (0.0-0.012); Nucleated Red Blood Cells Perc 0.0 % (0.0-0.2); Platelet Count Result 368 k/mm3 (150-375); Red Blood Count 4.89 M/mm3 (4.6-6.20); White Blood Count 8.8 K/mm3 (4.5-10.0)
[2025-08-17 10:09] LABS: Hemoglobin A1C 6.1 % (<5.7)
[2025-08-17 10:27] LABS: Alanine Aminotransferase 45 U/L (6-50); Albumin Level 4.5 g/dL (3.5-5.1); Alkaline Phosphatase 89 U/L (38-126); Anion Gap 9 mmol/L (4-12); Aspartate Amino Transferase 36 U/L (17-59); Bilirubin,Total 0.6 mg/dL (0.2-1.3); Blood Urea Nitrogen 14 mg/dL (9-20); Calcium 9.6 mg/dL (8.4-10.2); Carbon Dioxide 24 mmol/L (22-30); Chloride 104 mmol/L (98-107); Cholesterol 147 mg/dL (0-200); Estimated Glomerular Filt Rate > 60; Glucose 97 mg/dL (65-110); HDL Direct 27 mg/dL; Potassium 4.5 mmol/L (3.4-5.0); Sodium 137 mmol/L (137-145); Total Protein 8.3 g/dL (6.3-8.2); Triglycerides 110 mg/dL (<150)
[2025-08-17 11:02] LABS: Prostate Specific Antigen 0.2 ng/mL (< OR = 4.0)
[2025-08-20 11:19] LABS: MALB Creatinine Ratio < 12.6 mg/g (0-30)
== END 2025-08-17 09:22 | disposition home or self-care (01) ==
PROVIDERS: PCP Internal Medicine; Visit Provider Internal Medicine
DX: E78.5 Hyperlipidemia, unspecified (principal)
CPT/HCPCS: 36415; 80053; 80061; 82043; 83036; 84153; 85025; G0103